=== PATIENT | female | born 1955 | race Caucasian/White ===

== ENCOUNTER 2016-07-30 15:16 | Inpatient (IN) | payer OTHER ==
[~2016-07-30] VITALS: Ht 149.9 cm; Wt 63.6 kg
[2016-08-21] MEDS ORDERED: VITA500T4 PO (11:12)
[2016-08-21] MEDS ORDERED: SIMV10TA PO (11:12)
[2016-08-21] MEDS ORDERED: PANT40TA3 PO (11:12)
[2016-08-21] MEDS ORDERED: CILO100T PO (11:12)
[2016-08-21] MEDS ORDERED: FERR1TAB58 PO (11:12)
[2016-08-21] MEDS ORDERED: GINK120T2 PO (11:12)
[2016-08-21] MEDS ORDERED: LOSA25TA PO (11:12)
[2016-08-21] MEDS ORDERED: AMLO10TA2 PO (11:12)
[2016-08-26] VITALS (9 sets, daily range): BP systolic 118–152; BP diastolic 59–72; PULSE 68–85; RESP 18–20; TEMP 97.4–98; O2SAT 95–100
[2016-08-26] MEDS ORDERED: INSULIN HUMAN REGULAR 1,000 UNITS/10 ML VIAL SQ PRN (09:15)
[2016-08-26] MEDS ORDERED: SODIUM CHLORID 0.9% 500 ML IV SCH (09:15)
[2016-08-26] MEDS ORDERED: LACTATED RINGER'S 1000 ML IV SCH (09:15)
[2016-08-26] MEDS ORDERED: METOPROLOL TARTRATE 25 MG TAB PO PRN (09:15)
[2016-08-26] MEDS ORDERED: ceFAZolin 2 GM PREMIX 50 ML ONE (09:49)
[2016-08-26] MEDS ORDERED: HEPARIN SODIUM - SQ 10,000 UNITS/ML VIAL ONE (09:49)
[2016-08-26] MEDS ORDERED: HEPARIN SODIUM - IV 10,000 UNITS/10 ML VIAL ONE (09:49)
[2016-08-26] MEDS ORDERED: PROTAMINE SULFATE 50 MG/5 ML VIAL ONE (09:49)
[2016-08-26] MEDS ORDERED: BUPIVACAINE/EPINEPHRINE 0.5% 50 ML VIAL ONE (10:08)
[2016-08-26] MEDS ORDERED: MIDAZOLAM HCL 2 MG/2 ML VIAL ONE (10:15)
[2016-08-26] MEDS ORDERED: FAMOTIDINE 20 MG/2 ML VIAL ONE (10:15)
--- NOTE | 2016-08-26 10:22 | HHI.HP ---
History of Present Illness Chief Complaint: B LE leg pain History of Present Illness 61 yo lady with PAD and B LE leg pain, worsening, no motor dysfunction, no tissue loss Past/Family/Social History Past Medical History HTN, PAD, CAD - cleared by cardiology Social History still smoking and I have discussed with her Home Medications Reported Medications Ferrous Sulfate (Iron)50 Mg Tab65 Mg PO DAILY Ref 0 08/21/16 Cyanocobalamin (Vitamin B-12)500 Mcg [id number] Mcg PO DAILY #1 BOTTLE Ref 0 08/21/16 Amlodipine 10 Mg Tab10 Mg PO DAILY #30 TAB Ref 0 08/21/16 Simvastatin 10 Mg Tab10 Mg PO DAILY #30 TAB Ref 0 08/21/16 Losartan 25 Mg Tab12.5 Mg PO DAILY #15 TAB Ref 0 08/21/16 Cilostazol 100 Mg Biw881 Mg PO BID Ref 0 08/21/16 Discontinued Reported Medications Ginkgo Biloba 120 Mg Pus914 Mg PO DAILY 08/21/16 Pantoprazole 40 Mg Tab40 Mg PO DAILY #30 TAB Ref 0 08/21/16 Coded Allergies: No Known Allergies (Unverified , 08/21/16) Review of Systems Constitutional: COMPLAINS OF: Diaphoretic episodes, DENIES: Fever, Weight gain , Chills, Night Sweats Cardiovascular: DENIES: Chest pain, Palpitations, Syncope, Dyspnea on Exertion , PND, Lower Extremity Edema, Orthopnea, Claudication Physical Exam Vitals/I&O Date Time Temp Pulse Resp B/P Pulse Ox O2 Delivery O2 Flow Rate FiO2 08/26/16 09:20 98.0 85 20 152/70 100 Neuro: alert and oriented, anxious appropriately Neck: no JVD Heart: reg rate Lungs: nonlabored breathing Vascular: diminished femoral pulses, no palpable pedal pulses Laboratory Tests Test 08/26/16 08/26/16 09:20 09:22 Blood Type O NEGATIVE O NEGATIVE Antibody Screen NEGATIVE Crossmatch Leukocyte-Reduced Red Blood Cells Blood Bank Comment CTA shows AIOD Assessment and Plan Plan 1. B CFE TEA w/ patch and iliac stents 2. To OR. Discussed risks and benefits with patient and family. Bernardo Avila MD Aug 26, 2016 10:22
[2016-08-26] MEDS ORDERED: IOHEXOL 350 MG/ML 100 ML BTL (for RAD DIAG) OTHER ONE (11:35)
[2016-08-26] MEDS ORDERED: ePHEDrine/NS 50 MG/5 ML SYR IV ONE (12:00)
[2016-08-26] MEDS ORDERED: ONDANSETRON HCL 4 MG/2 ML VIAL IV PUSH ONE (12:00)
[2016-08-26] MEDS ORDERED: PHENYLEPH/NS 1000 MCG/10 ML SYR IV ONE (12:00)
[2016-08-26] MEDS ORDERED: NEOSTIGMINE 3 MG/3 ML SYR IV ONE (12:00)
[2016-08-26] MEDS ORDERED: PROPOFOL 200 MG/20 ML AMP IV ONE (12:00)
[2016-08-26] MEDS ORDERED: NORMOSOL R INJ 1,000 ML IV ONE (12:00)
--- NOTE | 2016-08-26 13:56 | HHI.PR ---
Immediate Post Op Note Procedure Date: Aug 26, 2016 Pre Op Diagnosis: PAD, B LE rest pain Post Op Diagnosis: PAD, B LE rest pain Surgeon: Bernardo Avila Enterprise Sales Person(s): Candace Judge Procedure: 1. B PATHOLOGY SECRETARY TEA with patch angioplasty 2. Aortogram 3. B RADHA stent (8x59 iCAST RIGHT, 9x59 iCAST LEFT) 4. B EIA stent (6x80 Complete RIGHT, 8x80 Complete LEFT) Findings: severe AIOD palpable femoral pulses post-procedure Additional Information: UOP: 275 mL Complications: none apparent Specimen(s) removed: none Estimated blood loss: 200 mL Anesthesia: General Drains: None Fluids: 1500 mL x'oid; 2U PRBC Patient to: PACU Patient Condition: Good Implant/Devices: SEE IMPLANT LOG (if applicable) Date/Time of Procedure: SEE SURGICAL CARE RECORD Bernardo Avila MD Aug 26, 2016 13:55
[2016-08-26] MEDS ORDERED: Post-op Orders (for Pharmacy) MISC OTHER ONE (14:00)
[2016-08-26] MEDS ORDERED: DEXTROSE 50% IN WATER 50 ML VIAL(D50) IV PUSH PRN (14:00)
[2016-08-26] MEDS ORDERED: ACETAMINOPHEN 325 MG TAB PO PRN (14:00)
[2016-08-26] MEDS ORDERED: GLUCAGON 1 MG/ML VIAL OTHER PRN (14:00)
[2016-08-26] MEDS ORDERED: MORPHINE SULFATE 4 MG/ML INJ IV PUSH PRN (14:00)
[2016-08-26] MEDS ORDERED: DO NOT ADM ANY ANTICOAGULANT DRUGS XX PRN (14:25)
[2016-08-26] MEDS ORDERED: fentaNYL CITRATE 250 MCG/5 ML AMP ONE (14:39)
[2016-08-26] MEDS: SODIUM CHLOR 0.9% 1000 ML INJ 1,000 ML IV SCH ×2 (15:10→23:56)
[2016-08-26 15:11] LABS: HEMATOCRIT 32.2 % (35.0-46.0); MEAN CELL VOLUME 89.1 FL (80.0-100.0); MEAN CORPUSCULAR HEMOGLOBIN 29.2 PG (27.0-34.0); MEAN CORPUSCULAR HGB CONC 32.8 % (32.0-36.0); PLATELET COUNT 221 TH/MM3 (150-450); RED BLOOD COUNT 3.62 MIL/MM3 (4.00-5.30); REVIEW FLAG FINAL; WHITE BLOOD COUNT 10.3 TH/MM3 (4.0-11.0)
[2016-08-26] MEDS: HEPARIN-D5W INJ 250 ML IV SCH (15:11)
[2016-08-26 15:34] LABS: APTT (PATIENT) 71.8 SEC (24.3-30.1); PROTHROMBIN TIME - PATIENT 11.1 SEC (9.8-11.6)
[2016-08-26] MEDS: INSULIN NovoLIN REGULAR SUPPLEMENTAL SCALE SQ SCH (18:00)
[2016-08-26] MEDS: oxyCODONE/ACETAMINOPHEN 5 MG/325 MG TAB PO PRN (18:20)
[2016-08-26] MEDS: PANTOPRAZOLE SOD 40 MG DELAYED RELEASE TAB PO SCH (20:41)
[2016-08-26 23:32] LABS: APTT (PATIENT) 47.4 SEC (24.3-30.1)
[2016-08-27] VITALS (26 sets, daily range): BP systolic 108–140; BP diastolic 60–78; PULSE 60–88; RESP 17–20; TEMP 98.1–98.4; O2SAT 92–98
[2016-08-27] MEDS: INSULIN NovoLIN REGULAR SUPPLEMENTAL SCALE SQ SCH ×5 (00:14→23:55)
[2016-08-27] MEDS: oxyCODONE/ACETAMINOPHEN 5 MG/325 MG TAB PO PRN ×2 (03:19→11:54)
[2016-08-27 06:09] LABS: APTT (PATIENT) 46.1 SEC (24.3-30.1)
[2016-08-27 06:32] LABS: ALKALINE PHOSPHATASE 62 U/L (45-117); ALT (GPT) 16 U/L (10-53); ANION GAP 7 MEQ/L (5-15); AST (GOT) 11 U/L (15-37); BICARBONATE 27.9 MEQ/L (21.0-32.0); BLOOD UREA NITROGEN 10 MG/DL (7-18); CHLORIDE 106 MEQ/L (98-107); GLOMERULAR FILTRATION RATE 141 ML/MIN (>89); POTASSIUM 3.6 MEQ/L (3.5-5.1); SODIUM (NA) 141 MEQ/L (136-145); TOTAL BILIRUBIN ADULT 0.4 MG/DL (0.2-1.0)
[2016-08-27] MEDS: ASPIRIN EC 325 MG TABEC PO SCH (09:05)
--- NOTE | 2016-08-27 10:07 | PD.VS.PN ---
Subjective POD #: 1 Procedure(s): B IT SOFTWARE DEVELOPER TEA with patch angioplasty Subjective/Hospital Course Pt sitting comfortably upright on st finishing up breakfast states she feels so much better this am. Pt alert and oriented times 3 with no acute distress, wound vac intact and in place. Objective Vitals/I&O Date Time Temp Pulse Resp B/P Pulse Ox O2 Delivery O2 Flow Rate FiO2 08/27/16 09:07 77 08/27/16 08:02 60 08/27/16 07:49 95 Nasal Cannula 2.00 08/27/16 07:30 65 08/27/16 07:30 98 Nasal Cannula 1.00 08/27/16 07:30 98.3 69 18 114/65 98 08/27/16 06:23 60 08/27/16 05:09 65 08/27/16 04:00 60 08/27/16 03:00 67 08/27/16 03:00 95 1.50 08/27/16 03:00 98.2 80 18 116/65 96 08/27/16 02:00 71 08/27/16 01:54 69 08/27/16 00:00 69 08/26/16 23:00 95 Nasal Cannula 2.00 08/26/16 23:00 78 08/26/16 23:00 97.9 78 18 118/68 99 08/26/16 22:12 71 08/26/16 21:12 70 08/26/16 21:06 95 Nasal Cannula 2.00 08/26/16 20:00 69 08/26/16 19:30 68 08/26/16 19:30 97.9 78 20 118/59 99 08/26/16 19:00 96 Nasal Cannula 3.00 08/26/16 18:44 78 08/26/16 16:30 97.4 75 20 129/72 95 08/26/16 16:30 71 08/26/16 16:00 70 17 126/65 97 Nasal Cannula 2 08/26/16 15:30 73 18 120/66 95 Nasal Cannula 2 08/26/16 15:15 74 20 120/66 95 Nasal Cannula 2 08/26/16 15:00 79 19 123/71 98 Nasal Cannula 2 08/26/16 14:45 82 16 119/71 95 Nasal Cannula 2 08/26/16 14:30 89 12 109/66 97 Nasal Cannula 2 08/26/16 14:23 97.6 92 15 114/74 98 Nasal Cannula 2 Exam: GENERAL: SKIN: Warm and dry. HEAD: Normocephalic. NECK: Supple, trachea midline. No JVD or lymphadenopathy. RESPIRATORY: No accessory muscle use. MUSCULOSKELETAL: No cyanosis, or edema. Pulses: Pt presents with strong pedal pulses via doppler, skin intact with no swelling or pain Incisions: Wound vac intact to groin region Laboratory Laboratory Tests Test 08/26/16 08/26/16 08/26/16 08/27/16 11:46 14:45 22:35 05:45 Crossmatch Leukocyte-Reduced Red Blood Cells Blood Bank Comment White Blood Count 10.3 Red Blood Count 3.62 Hemoglobin 10.6 Hematocrit 32.2 Mean Corpuscular Volume 89.1 Mean Corpuscular Hemoglobin 29.2 Mean Corpuscular Hemoglobin 32.8 Concent Red Cell Distribution Width 16.0 Platelet Count 221 Mean Platelet Volume 9.9 Prothrombin Time 11.1 Prothromb Time International 1.0 Ratio Activated Partial 71.8 47.4 46.1 Thromboplast Time Sodium Level 141 Potassium Level 3.6 Chloride Level 106 Carbon Dioxide Level 27.9 Anion Gap 7 Blood Urea Nitrogen 10 Creatinine 0.45 Estimat Glomerular Filtration 141 Rate Random Glucose 102 Calcium Level 7.9 Total Bilirubin 0.4 Aspartate Amino Transf 11 (AST/SGOT) Alanine Aminotransferase 16 (ALT/SGPT) Alkaline Phosphatase 62 Total Protein 5.6 Albumin 2.5 Assessment and Plan Plan 1. B CFE TEA w/ patch and iliac stents 2. Consult to PT/Hematology/case management 3. D/C dhaliwal cath today 4. Continue Heparin drip 5. Start Wellbutrin for smoking cessation Lizett Joshua Aug 27, 2016 10:07
[2016-08-27] MEDS ORDERED: PILL SPLITTER OTHER PRN (10:15)
[2016-08-27] MEDS: HEPARIN-D5W INJ 250 ML IV SCH (11:11)
--- NOTE | 2016-08-27 11:41 | MP ---
cc: ANUSHA AVILA MD DATE OF SURGERY 08/26/2016 PREOPERATIVE DIAGNOSIS Peripheral arterial occlusive disease, bilateral lower extremity rest pain. POSTOPERATIVE DIAGNOSIS Peripheral arterial occlusive disease, bilateral lower extremity rest pain. PROCEDURE 1. Bilateral common femoral artery endarterectomy 2. Aortogram 3. Right common iliac artery stent with iCAST 8 x 59 4. Right external iliac artery stent with a complete 8 x 60 5. Left common iliac artery stent with 9 x 59 iCAST 6. Left external iliac artery stent with 8 x 80 complete ATTENDING SURGEON Anusha Avila MD ANESTHESIA General INDICATIONS Ms. García is a 61-year-old lady with peripheral arterial occlusive disease manifesting as rest pain bilaterally. Preoperative CT scan suggests she has severe aortic iliac occlusive disease and is being taken to the operating room to undergo reconstruction and iliac stenting. DESCRIPTION OF PROCEDURE Informed consent was obtained from the patient. She was taken to the operating room and placed supine on the operating room table. An appropriate time out was taken to ensure the patient's identify, operative site and planned procedure. The administration of a gram of Kefzol was initiated prior to the skin incision and will be discontinued after a single preoperative dose. Everyone in the room agreed with the time out and we proceeded. The patient was prepped from her nipples to her toes. Vertical incisions were made in both groins, carried down through the subcutaneous tissue with electrocautery. The common femoral artery was identified and dissected free from the external iliac artery to the femoral bifurcation. The patient was systemically heparinized through the remainder of the case. The ACT was kept greater than 250. Proximal and distal control of each common femoral artery was obtained with Profunda clamps and the distal control was obtained with profunda clamps. A longitudinal arteriotomy was made with an 11 blade and extended with Detrich scissors. The arteries were endarterectomized without difficulty. A nice end point was obtained both proximally and distally in both arteries. Bovine pericardial patches were then sewn on these using running 5-0 Prolene sutures. At the completion of such, she became hemostatic. The clamps were released, both patches were accessed. The micropuncture needles were exchanged using Seldinger technique for a micropuncture sheath through which 0.035 Glidewire was introduced. The micropuncture sheath was exchanged for a 5 Grenadian sheath and then a 7 x 25 Grenadian sheath. An aortogram was obtained. This showed severe aortic iliac occlusive disease. It was, in fact, sheath occlusive bilaterally. Kissing iliac stents were performed with 9 x 59 on the left and 8 x 59 on the right. Atrium iCAST stents were deployed without difficulty. The completion angiogram on the left showed residual external iliac artery occlusive disease and this was treated with an 8 x 80 self-expanding stent and it was post-dilating to 7 mm. Completion angiogram showed an excellent result. The wire, catheter and sheath were removed. The patchotomy was closed with interrupted 6-0 Prolene sutures and hemostasis achieved. There was a nice pulse in the groin. On the right hand side, an 8 x 60 stent was then placed and this was done to avoid hypogastric artery jailing. The completion angiogram showed an excellent result without any recoil extravasation. The wire, catheter and sheath were removed. The patchotomy was closed with interrupted 6-0 Prolene suture. There were pulses in both groins. The wounds were made hemostasis, irrigated and closed with 2-0 Polysorb, 3-0 Polysorb and 4-0 Monocryl. A skin Vac was then applied to both wounds. There were no complications. I was present and scrubbed for the entire procedure. MD KOURTNEY Mcintyre/SHANTE /8:06 AM /11:11 AM CARINA
[2016-08-27] MEDS: buPROPion HCL 150 MG SUSTAINED RELEASE TAB PO SCH (11:53)
[2016-08-27 11:55] LABS: AUTOMATED NEUTROPHIL # 11.4 TH/MM3 (1.8-7.7); BASOPHIL # 0.1 TH/MM3 (0-0.2); BASOPHIL % 0.4 % (0.0-2.0); EOSINOPHIL % 0.1 % (0.0-4.0); HEMATOCRIT 31.8 % (35.0-46.0); HEMO FLAGS DIFF FINAL; LYMPH % 11.4 % (9.0-44.0); LYMPHOCYTE # 1.6 TH/MM3 (1.0-4.8); MEAN CELL VOLUME 89.3 FL (80.0-100.0); MEAN CORPUSCULAR HEMOGLOBIN 28.2 PG (27.0-34.0); MEAN CORPUSCULAR HGB CONC 31.5 % (32.0-36.0); MONO % 7.1 % (0.0-8.0); PLATELET COUNT 206 TH/MM3 (150-450); RED BLOOD COUNT 3.57 MIL/MM3 (4.00-5.30); RED CELL DISTRIBUTION WIDTH 16.5 % (11.6-17.2); WHITE BLOOD COUNT 14.1 TH/MM3 (4.0-11.0)
[2016-08-27 12:27] LABS: BICARBONATE 28.8 MEQ/L (21.0-32.0); POTASSIUM 3.2 MEQ/L (3.5-5.1)
[2016-08-27] MEDS: DOCUSATE SODIUM 100 MG CAP PO SCH (20:26)
[2016-08-27] MEDS: PANTOPRAZOLE SOD 40 MG DELAYED RELEASE TAB PO SCH (20:26)
[2016-08-27] MEDS ORDERED: CILOSTAZOL 100 MG TAB PO SCH (21:00)
[2016-08-27] MEDS: oxyCODONE/ACETAMINOPHEN 10 MG/325 MG TAB PO PRN (22:16)
--- NOTE | 2016-08-27 22:29 | MB ---
cc: JOSE DELEON DATE OF CONSULTATION 08/27/16 DATE OF 1955 REASON FOR CONSULTATION Patient with history of severe peripheral arterial disease who has undergone placement of iliac stents. CHIEF COMPLAINT Lower extremity pain. HISTORY OF PRESENT ILLNESS This is a 60-year-old female who was admitted to the hospital for vascular procedure and had iliac stents placed. She has severe peripheral arterial disease and had bilateral lower extremity pain which was worsening. Her other medical problems include history of GI bleeding requiring multiple blood transfusions over the past several months, history of hypertension. She is also a chronic smoker. She lives in [place]. She says that she was evaluated by a ticker installer in June and had a colonoscopy which did not reveal a source of bleeding. She was supposed to follow up with GI for further evaluation since she has heme-positive stools and has required several units of packed red blood cells over the past 3-4 months. I have been consulted to evaluate this patient for anticoagulation in the setting of severe peripheral arterial disease and occlusion. REVIEW OF SYSTEMS A comprehensive 14-point review of systems was completed which is negative except as described in the HPI. PAST MEDICAL HISTORY 1. Hypertension 2. Coronary artery disease SOCIAL HISTORY Smoker. Lives with her family. No illicit drug use. FAMILY HISTORY Reviewed and it is noncontributory to this admission. MEDICATIONS Home medications 1. Iron sulfate 50 mg 1 tablet p.o. daily 2. Cyanocobalamin 500 mg one tablet p.o. daily, 3. Amlodipine 10 mg one tablet p.o. daily, 4. Simvastatin 10 mg one tablet p.o. daily, 5. Losartan 25 mg 12.5 mg one tablet p.o. daily, 6. Cilostazol 100 mg one tablet p.o. b.i.d. ALLERGIES She does not have any known drug allergies. PHYSICAL EXAMINATION VITAL SIGNS: Blood pressure is 128/67, pulse is in the 60s, temperature is 98.4, O2 sats are 95% on room air. GENERAL: Well-developed, well-nourished female, elderly female sitting up in the chair no apparent distress. HEENT: Pupils are equal, round, reactive to light. EOMI. No oral thrush. No oral lesions. NECK: Supple, no JVD, no bruits. No lymphadenopathy. CHEST: Clear to auscultation bilaterally. CARDIAC: S1-S2 regular rate and rhythm. ABDOMEN: Soft, nontender, nondistended. Bowel sounds are present. EXTREMITIES: Without any edema, erythema or cyanosis. Prominent veins in the lower extremities, pulses are 2+. NEUROLOGIC: No focal deficits. PSYCHIATRIC: Mood and affect is appropriate. LYMPH NODE EXAM: No lymphadenopathy on exam. LABORATORY DATA WBC is 14.1, hemoglobin is 10, MCV is 89.3, platelet count is 206. Serum chemistries show sodium of 142, potassium 3.2, CO2 28.8, BUN nine, creatinine 0.46, GFR is 137, glucose is 91, calcium is 8.2. Coags show an INR of 1.0. She is currently on heparin and PTT is 46.1. IMAGING STUDIES No imaging available in the system. ASSESSMENT/PLAN This is a 61-year-old female with a past medical history of severe peripheral arterial disease with occlusion who was admitted to the hospital and underwent vascular surgery with stent placement. 1. Severe peripheral arterial disease. I have been consulted to evaluate this patient for long-term anticoagulation. She is currently on heparin. After a long discussion with the patient, it appears that she has been having GI bleed. She has had Hemoccult positive stools in the past and was seen by gastroenterology. No definitive source of bleeding was identified and further GI workup was planned. She has required recent blood transfusions. At this time, I would not recommend long-term anticoagulation unless we have properly evaluated this patient for GI bleeding. I would recommend continuing heparin for now. We should obtain a stool Hemoccult test. We should obtain a GI consult for further evaluation. 2. Anemia. As stated above. Secondary to a history of GI bleeding and also postop anemia, obtain anemia studies, stool Hemoccult as stated above and GI evaluation. Thank you for allowing me to participate in the care of this patient. I will continue to follow this patient along. MD SOCORRO Gregory/ /9:24 PM /10:14 PM [facility]
[2016-08-28] VITALS (25 sets, daily range): BP systolic 116–140; BP diastolic 66–79; PULSE 61–88; RESP 16–19; TEMP 98–98.8; O2SAT 91–94
[2016-08-28] MEDS: oxyCODONE/ACETAMINOPHEN 10 MG/325 MG TAB PO PRN ×4 (02:27→20:55)
[2016-08-28] MEDS: INSULIN NovoLIN REGULAR SUPPLEMENTAL SCALE SQ SCH ×3 (06:00→18:00)
[2016-08-28 06:14] LABS: AUTOMATED NEUTROPHIL # 9.1 TH/MM3 (1.8-7.7); BASOPHIL % 0.3 % (0.0-2.0); EOSINOPHIL # 0.1 TH/MM3 (0-0.4); EOSINOPHIL % 0.7 % (0.0-4.0); HEMATOCRIT 30.6 % (35.0-46.0); HEMO FLAGS DIFF FINAL; LYMPH % 12.4 % (9.0-44.0); LYMPHOCYTE # 1.4 TH/MM3 (1.0-4.8); MEAN CELL VOLUME 90.1 FL (80.0-100.0); MEAN CORPUSCULAR HEMOGLOBIN 29.5 PG (27.0-34.0); MEAN CORPUSCULAR HGB CONC 32.8 % (32.0-36.0); MONO % 6.9 % (0.0-8.0); NEUT % 79.7 % (16.0-70.0); PLATELET COUNT 204 TH/MM3 (150-450); RED BLOOD COUNT 3.39 MIL/MM3 (4.00-5.30); RED CELL DISTRIBUTION WIDTH 16.2 % (11.6-17.2); WHITE BLOOD COUNT 11.5 TH/MM3 (4.0-11.0)
[2016-08-28 06:39] LABS: APTT (PATIENT) 38.5 SEC (24.3-30.1)
[2016-08-28 06:46] LABS: FERRITIN 32 NG/ML (8-252); LDH SERUM 142 U/L (84-246); TRANSFERRIN IRON PROFILE 212 MG/DL (200-360)
--- NOTE | 2016-08-28 09:01 | PD.VS.PN ---
Subjective Subjective/Hospital Course Patient without complaints. Margie PO and urinating. Walking with PT. Objective Vitals/I&O Date Time Temp Pulse Resp B/P Pulse Ox O2 Delivery O2 Flow Rate FiO2 08/28/16 08:00 82 08/28/16 07:15 91 Room Air 08/28/16 07:15 80 08/28/16 07:15 98.6 81 16 121/67 91 08/28/16 06:00 61 08/28/16 05:00 69 08/28/16 04:00 83 08/28/16 03:00 75 08/28/16 03:00 98.0 88 19 140/79 92 08/28/16 02:00 75 08/28/16 01:00 68 08/28/16 00:00 70 08/27/16 23:00 79 08/27/16 23:00 98.3 88 18 126/77 92 08/27/16 22:00 84 08/27/16 21:00 82 08/27/16 20:15 95 08/27/16 20:00 80 08/27/16 19:00 75 08/27/16 19:00 98.1 86 17 140/78 96 08/27/16 19:00 96 Room Air 08/27/16 18:25 74 08/27/16 17:32 78 08/27/16 16:36 76 08/27/16 15:45 74 08/27/16 15:45 98.4 64 20 128/67 97 08/27/16 14:21 68 08/27/16 13:17 18 08/27/16 13:13 63 08/27/16 12:25 69 08/27/16 11:56 98.4 68 20 108/60 95 08/27/16 11:00 78 08/27/16 09:07 77 08/28/16 08/28/16 08/28/16 07:00 15:00 23:00 Intake Total 847 ml Balance 847 ml Physical Exam Warm lower extremities with strong doppler signals. Provena vacs in place. Laboratory Laboratory Tests Test 08/27/16 08/28/16 11:42 04:54 White Blood Count 14.1 11.5 Red Blood Count 3.57 3.39 Hemoglobin 10.0 10.0 Hematocrit 31.8 30.6 Mean Corpuscular Volume 89.3 90.1 Mean Corpuscular Hemoglobin 28.2 29.5 Mean Corpuscular Hemoglobin 31.5 32.8 Concent Red Cell Distribution Width 16.5 16.2 Platelet Count 206 204 Mean Platelet Volume 9.7 10.7 Neutrophils (%) (Auto) 81.0 79.7 Lymphocytes (%) (Auto) 11.4 12.4 Monocytes (%) (Auto) 7.1 6.9 Eosinophils (%) (Auto) 0.1 0.7 Basophils (%) (Auto) 0.4 0.3 Neutrophils # (Auto) 11.4 9.1 Lymphocytes # (Auto) 1.6 1.4 Monocytes # (Auto) 1.0 0.8 Eosinophils # (Auto) 0.0 0.1 Basophils # (Auto) 0.1 0.0 CBC Comment DIFF FINAL DIFF FINAL Differential Comment Sodium Level 142 Potassium Level 3.2 Chloride Level 105 Carbon Dioxide Level 28.8 Anion Gap 8 Blood Urea Nitrogen 9 Creatinine 0.46 Estimat Glomerular Filtration 137 Rate Random Glucose 91 Calcium Level 8.2 Haptoglobin 138 Activated Partial 38.5 Thromboplast Time Iron Level 7 Total Iron Binding Capacity 297 Percent Iron Saturation 2.4 Ferritin 32 Lactate Dehydrogenase 142 Assessment and Plan Plan 1. B CFE TEA w/ patch and iliac stents 2. Continue PT and pain mgmt. 3. Still on Heparin drip. 4. Hematology consult for anticoagulation. Rupesh Johnson DO Aug 28, 2016 09:00
[2016-08-28] MEDS ORDERED: DO NOT ADM ANY ANTICOAGULANT DRUGS XX PRN (09:15)
[2016-08-28] MEDS: buPROPion HCL 150 MG SUSTAINED RELEASE TAB PO SCH (09:57)
[2016-08-28] MEDS: CYANOCOBALAMIN 1,000 MCG TAB PO SCH (09:57)
[2016-08-28] MEDS: LOSARTAN 25 MG TAB PO SCH (09:58)
[2016-08-28] MEDS: PRAVASTATIN SOD 20 MG TAB PO SCH (09:58)
[2016-08-28] MEDS: FERROUS SULFATE 325 MG (65 MG ELEMENTAL IRON) TAB PO SCH (09:58)
[2016-08-28] MEDS: DOCUSATE SODIUM 100 MG CAP PO SCH ×2 (09:58→20:53)
[2016-08-28] MEDS: ASPIRIN EC 325 MG TABEC PO SCH (09:58)
[2016-08-28 11:20] LABS: PROTHROMBIN TIME - PATIENT 10.9 SEC (9.8-11.6)
[2016-08-28] MEDS: HEPARIN-D5W INJ 250 ML IV SCH (11:59)
--- NOTE | 2016-08-28 12:08 | PD.CONS ---
HPI History of Present Illness This is a 61 year old female patient with severe peripheral arterial disease, who recently underwent bilateral common femoral artery endarterectomy, aortogram , right common iliac artery stent, right external iliac artery stent, left common iliac artery stent, left external iliac arterial stent on (08/27/16) with Dr. Avila. Postoperatively, she was started on a heparin gtt, aspirin, and coumadin. Hematology was consulted for evaluation for penitentiary anticoagulation. GI was consulted for a history of GI Bleeding/hemoccult positive stool in a patient that will need penitentiary anticoagulation. Her H/H has remained stable during this hospitalization and is currently 10.0/30.6. Iron indices revealed iron 7, TIBC 297, iron saturation 2.4, ferritin 32. The patient reports that she was hospitalized at [facility] about 3 weeks ago and found to have anemia with Hemoccult-positive stool. She reports that she underwent evaluation with EGD and colonoscopy at that time. She reports that this was normal other than 2 polyps which were "burned." She denies any hx of PUD. She denies any obvious visible blood loss. She denies any decreased appetite, heartburn, reflux, nausea, vomiting, abdominal pain, bowel changes, black stools, or red blood in her stool. (Amy Bush) PFSH Past Medical History Anemia Recent hemoccult positive stool Colon polyps Severe peripheral arterial disease Past Surgical History EGD/Colonoscopy Bilateral common femoral artery endarterectomy, aortogram, right common iliac artery stent, right external iliac artery stent, left common iliac artery stent, left external iliac arterial stent on (08/27/16) with Dr. Avila. (Amy Bush) Coded Allergies: No Known Allergies (Unverified , 08/21/16) Medications Allergies Coded Allergies Type Severity Reaction Last Updated Verified No Known Allergies 08/21/16 No Active Scripts Medications Dose Route/Sig Days Date Category Iron (Ferrous Sulfate) 50 Mg Tab 65 Mg PO DAILY 08/21/16 Reported Vitamin B-12 (Cyanocobalamin) 500 Mcg Tab 500 Mcg PO DAILY 08/21/16 Reported Amlodipine (Amlodipine Besylate) 10 Mg Tab 10 Mg PO DAILY 08/21/16 Reported Simvastatin 10 Mg Tab 10 Mg PO DAILY 08/21/16 Reported Losartan (Losartan Potassium) 25 Mg Tab 12.5 Mg PO DAILY 08/21/16 Reported Cilostazol 100 Mg Tab 100 Mg PO BID 08/21/16 Reported Family History Brother with cardiac disease Sister had surgery for benign gastric tumor No family hx of esophageal, gastric, or colorectal cancer. Social History Smokes 2-3 cigarettes per day No ETOH. (Amy Bush) Review of Systems Constitutional: COMPLAINS OF: Fatigue, DENIES: Weight loss, Change in appetite Respiratory: DENIES: Cough, Shortness of breath Cardiovascular: COMPLAINS OF: Claudication, DENIES: Chest pain Gastrointestinal: DENIES: Abdominal pain, Black stools, Bloody stools, Constipation, Diarrhea, Nausea, Vomiting, Anorexia, Swelling of Abdomen, Heartburn, Hematemesis Musculoskeletal: DENIES: Joint pain, Muscle aches Integumentary: DENIES: Abnormal pigmentation Neurologic: DENIES: Headache Psychiatric: DENIES: Confusion (Amy Bush) GI Exam Vitals I&O Vital Signs Date Time Temp Pulse Resp B/P Pulse Ox O2 Delivery O2 Flow Rate FiO2 08/28/16 11:00 69 08/28/16 10:00 77 08/28/16 09:00 92 21 08/28/16 09:00 69 08/28/16 08:00 82 08/28/16 07:15 91 Room Air 08/28/16 07:15 80 08/28/16 07:15 98.6 81 16 121/67 91 08/28/16 06:00 61 08/28/16 05:00 69 08/28/16 04:00 83 08/28/16 03:00 75 08/28/16 03:00 98.0 88 19 140/79 92 08/28/16 02:00 75 08/28/16 01:00 68 08/28/16 00:00 70 08/27/16 23:00 79 08/27/16 23:00 98.3 88 18 126/77 92 08/27/16 22:00 84 08/27/16 21:00 82 08/27/16 20:15 95 08/27/16 20:00 80 08/27/16 19:00 75 08/27/16 19:00 98.1 86 17 140/78 96 08/27/16 19:00 96 Room Air 08/27/16 18:25 74 08/27/16 17:32 78 08/27/16 16:36 76 08/27/16 15:45 74 08/27/16 15:45 98.4 64 20 128/67 97 08/27/16 14:21 68 08/27/16 13:17 18 08/27/16 13:13 63 08/27/16 12:25 69 08/27/16 11:56 98.4 68 20 108/60 95 I/O 08/27/16 08/27/16 08/27/16 08/28/16 08/28/16 08/28/16 07:00 15:00 23:00 07:00 15:00 23:00 Intake Total 1862 ml 840 ml 847 ml Output Total 800 ml 450 ml Balance 1062 ml 390 ml 847 ml Intake Oral 300 ml 840 ml 420 ml IV Total 1562 ml 427 ml Output Urine Total 800 ml 450 ml # Voids 3 2 # Bowel Movements 0 0 Laboratory Test 08/28/16 08/28/16 04:54 10:51 White Blood Count 11.5 TH/MM3 Red Blood Count 3.39 MIL/MM3 Hemoglobin 10.0 GM/DL Hematocrit 30.6 % Mean Corpuscular Volume 90.1 FL Mean Corpuscular Hemoglobin 29.5 PG Mean Corpuscular Hemoglobin 32.8 % Concent Red Cell Distribution Width 16.2 % Platelet Count 204 TH/MM3 Mean Platelet Volume 10.7 FL Neutrophils (%) (Auto) 79.7 % Lymphocytes (%) (Auto) 12.4 % Monocytes (%) (Auto) 6.9 % Eosinophils (%) (Auto) 0.7 % Basophils (%) (Auto) 0.3 % Neutrophils # (Auto) 9.1 TH/MM3 Lymphocytes # (Auto) 1.4 TH/MM3 Monocytes # (Auto) 0.8 TH/MM3 Eosinophils # (Auto) 0.1 TH/MM3 Basophils # (Auto) 0.0 TH/MM3 CBC Comment DIFF FINAL Differential Comment Haptoglobin 138 MG/DL Activated Partial 38.5 SEC Thromboplast Time Iron Level 7 MCG/DL Total Iron Binding Capacity 297 MCG/DL Percent Iron Saturation 2.4 % Ferritin 32 NG/ML Lactate Dehydrogenase 142 U/L Prothrombin Time 10.9 SEC Prothromb Time International 1.0 RATIO Ratio Physical Examination HEENT: Normocephalic; atraumatic; no jaundice. CHEST: CTA. CARDIAC: RRR. ABDOMEN: Soft, nondistended, nontender; no hepatosplenomegaly; bowel sounds are present in all four quadrants. EXTREMITIES: No clubbing, cyanosis, or edema. SKIN: Normal; no rash; no jaundice. CUSTOMER CARE CONSULTANT: No focal deficits; alert and oriented times three. (Amy Bush REAL ESTATE ASSISTANT) Assessment and Plan Plan ASSESSMENT: - Recent GIB/Hemoccult positive stool in patient who will require penitentiary anticoagulation. Pt with severe PAD and is s/p bilateral common femoral artery endarterectomy, aortogram, right common iliac artery stent, right external iliac artery stent, left common iliac artery stent, left external iliac arterial stent on (08/27/16) with Dr. Avila. Postoperatively, she was started on a heparin gtt, aspirin, and coumadin. 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 GI was consulted for a history of GI Bleeding/hemoccult positive stool in a patient that will need penitentiary anticoagulation. The patient reports that she was hospitalized at [facility] about 3 weeks ago and found to have anemia with Hemoccult-positive stool and subsequently underwent evaluation with EGD/Colonoscopy at that time- reports as normal other than 2 polyps. No GI symptoms or obvious blood loss. HH has remained stable 10.0/30.6. Iron indices revealed iron 7, TIBC 297, iron saturation 2.4, ferritin 32. PPI, Of note she is on B12. Will obtain records. - Anemia. HH has remained stable 10.0/30.6. Iron indices revealed iron 7, TIBC 297, iron saturation 2.4, ferritin 32. PPI, Of note she is on B12. B12 level pending. MCV 90.1. Hematology following Ferrous Sulfate, PPI - Severe PAD, s/p bilateral common femoral artery endarterectomy, aortogram, right common iliac artery stent, right external iliac artery stent, left common iliac artery stent, left external iliac arterial stent on (08/27/16) with Dr. Avila. On heparin, coumadin, asa - Leukocytosis, improved. 11.5. - Hypokalemia per primary. PLAN: - [facility], Cardiac - Obtain records of recent hospitalization and egd/colonoscopy/pathology/imaging /GI notes/progress notes from 3 weeks ago at [facility] - Cont. PPI - Await B12 level - Cont. Ferrous sulfate - Monitor for bleeding - Monitor HH - Supportive care - Further recommendations to follow after records from [facility] reviewed - Pt seen and examined by Dr. Saba and myself and this note is written on his behalf (Amy Bush) Physician Comments Patient seen and examined Agree with above Continue with current supportive care Monitor labs (Yoan Saba MD) Amy Bush Aug 28, 2016 12:08 Yoan Saba MD Aug 28, 2016 21:26
[2016-08-28 15:08] LABS: APTT (PATIENT) 37.9 SEC (24.3-30.1)
[2016-08-28] MEDS ORDERED: WARFARIN SOD 5 MG TAB PO ONE (16:00)
[2016-08-28] MEDS ORDERED: POTASSIUM CL 40 MEQ/30 ML LIQ UDC PO ONE (18:45)
[2016-08-28] MEDS: PANTOPRAZOLE SOD 40 MG DELAYED RELEASE TAB PO SCH (20:52)
--- NOTE | 2016-08-28 23:34 | PD.ONC.PN ---
Objective Data Date Time Temp Pulse Resp B/P Pulse Ox O2 Delivery O2 Flow Rate FiO2 08/28/16 19:30 94 Room Air 08/28/16 19:30 98.8 80 18 134/77 93 08/28/16 19:30 80 08/28/16 18:00 75 08/28/16 17:51 94 21 08/28/16 17:00 80 08/28/16 16:00 68 08/28/16 15:00 71 08/28/16 15:00 98.6 75 18 134/75 94 08/28/16 14:00 70 08/28/16 13:00 68 08/28/16 12:00 66 08/28/16 11:00 98.4 69 16 116/66 92 08/28/16 11:00 69 08/28/16 10:00 77 08/28/16 09:00 92 21 08/28/16 09:00 69 08/28/16 08:00 82 08/28/16 07:15 91 Room Air 08/28/16 07:15 80 08/28/16 07:15 98.6 81 16 121/67 91 08/28/16 06:00 61 08/28/16 05:00 69 08/28/16 04:00 83 08/28/16 03:00 75 08/28/16 03:00 98.0 88 19 140/79 92 08/28/16 02:00 75 08/28/16 01:00 68 08/28/16 00:00 70 08/28/16 08/28/16 08/28/16 07:00 15:00 23:00 Intake Total 847 ml 836 ml Balance 847 ml 836 ml Result Diagram: 08/28/16 0454 08/27/16 1142 Laboratory Results Laboratory Tests Test 08/28/16 08/28/16 08/28/16 04:54 10:51 14:29 White Blood Count 11.5 TH/MM3 Red Blood Count 3.39 MIL/MM3 Hemoglobin 10.0 GM/DL Hematocrit 30.6 % Mean Corpuscular Volume 90.1 FL Mean Corpuscular Hemoglobin 29.5 PG Mean Corpuscular Hemoglobin 32.8 % Concent Red Cell Distribution Width 16.2 % Platelet Count 204 TH/MM3 Mean Platelet Volume 10.7 FL Neutrophils (%) (Auto) 79.7 % Lymphocytes (%) (Auto) 12.4 % Monocytes (%) (Auto) 6.9 % Eosinophils (%) (Auto) 0.7 % Basophils (%) (Auto) 0.3 % Neutrophils # (Auto) 9.1 TH/MM3 Lymphocytes # (Auto) 1.4 TH/MM3 Monocytes # (Auto) 0.8 TH/MM3 Eosinophils # (Auto) 0.1 TH/MM3 Basophils # (Auto) 0.0 TH/MM3 CBC Comment DIFF FINAL Differential Comment Haptoglobin 138 MG/DL Activated Partial 38.5 SEC 37.9 SEC Thromboplast Time Iron Level 7 MCG/DL Total Iron Binding Capacity 297 MCG/DL Percent Iron Saturation 2.4 % Ferritin 32 NG/ML Lactate Dehydrogenase 142 U/L Vitamin B12 Level 655 PG/ML Prothrombin Time 10.9 SEC Prothromb Time International 1.0 RATIO Ratio Administered Medications Medications (Trade) Dose Ordered Sig/Nathan Route PRN Reason Start Time Stop Time Status Last Admin Dose Admin Pantoprazole Sodium (Protonix) 40 mg HS PO 08/26/16 21:00 08/28/16 20:52 Oxycodone/ Acetaminophen (Percocet 5-325 Mg) 1 tab Q4H PRN PO PAIN SCALE 1 TO 5 08/26/16 14:00 08/27/16 11:54 Oxycodone/ Acetaminophen (Percocet 10-325 Mg) 1 tab Q4H PRN PO PAIN SCALE 6 TO 10 08/26/16 14:00 08/28/16 20:55 Insulin Human Regular (NovoLIN R SUPPLEMENTAL SCALE) 1 Q6HR SQ 08/26/16 18:00 08/27/16 00:14 Bupropion HCl (Wellbutrin Sr) 150 mg DAILY PO 08/27/16 12:00 08/28/16 09:57 Amlodipine Besylate (Norvasc) 10 mg DAILY PO 08/27/16 09:45 08/28/16 09:58 Cyanocobalamin (Vitamin B12) 500 mcg DAILY PO 08/28/16 09:00 08/28/16 09:57 Losartan Potassium (Cozaar) 12.5 mg DAILY PO 08/28/16 09:00 08/28/16 09:58 Ferrous Sulfate (Ferrous Sulfate) 325 mg DAILY PO NS 08/28/16 09:00 08/28/16 09:58 Pravastatin Sodium (Pravachol) 20 mg DAILY PO CM 08/28/16 09:00 08/28/16 09:58 Docusate Sodium (Colace) 100 mg BID PO 08/27/16 21:00 08/28/16 20:53 Objective Remarks GENERAL: nad SKIN: Warm and dry. HEAD: Normocephalic. EYES: No scleral icterus. No injection or drainage. NECK: Supple, trachea midline. No JVD or lymphadenopathy. LYMPHATIC: No adenopathy. CARDIOVASCULAR: Regular rate and rhythm without murmurs. RESPIRATORY: Breath sounds equal bilaterally. No accessory muscle use. GASTROINTESTINAL: Abdomen soft, non-tender, nondistended. EXTREMITIES: No cyanosis, or edema. varicose veins b/l le Assessment/Plan Problem List: (1) Anemia Status: Acute (2) Iron deficiency anemia Status: Acute (3) Peripheral arterial disease Status: Acute (4) Iliac artery stenosis, bilateral Status: Acute (5) Fecal occult blood test positive Status: Acute Assessment 61-year-old female with a past medical history of severe peripheral arterial disease with occlusion who was admitted to the hospital and underwent vascular surgery with stent placement. 1. Severe peripheral arterial disease s/p illiac stents - needs fpc anticoagulation but has history of GI bleeding. FOBT positive with anemia, high risk for fpc AC until we address the source of bleeding. - Continue heparin for now - GI evaluation ongoing 2. Anemia - iron deficient - Iron infusion - B12, folate pending Dale Hassan MD Aug 28, 2016 23:34
[2016-08-29] VITALS (9 sets, daily range): BP systolic 120–148; BP diastolic 67–76; PULSE 67–88; RESP 18; TEMP 97.8–98.7; O2SAT 91–94
[2016-08-29] MEDS: oxyCODONE/ACETAMINOPHEN 10 MG/325 MG TAB PO PRN (01:15)
[2016-08-29 05:17] LABS: HEMATOCRIT 28.6 % (35.0-46.0); MEAN CELL VOLUME 88.8 FL (80.0-100.0); MEAN CORPUSCULAR HEMOGLOBIN 29.6 PG (27.0-34.0); MEAN CORPUSCULAR HGB CONC 33.3 % (32.0-36.0); PLATELET COUNT 202 TH/MM3 (150-450); RED BLOOD COUNT 3.22 MIL/MM3 (4.00-5.30); RED CELL DISTRIBUTION WIDTH 15.7 % (11.6-17.2); REVIEW FLAG FINAL; WHITE BLOOD COUNT 9.7 TH/MM3 (4.0-11.0)
[2016-08-29 05:24] LABS: APTT (PATIENT) 31.2 SEC (24.3-30.1)
[2016-08-29 05:32] LABS: BICARBONATE 29.2 MEQ/L (21.0-32.0); POTASSIUM 4.2 MEQ/L (3.5-5.1)
[2016-08-29] MEDS: INSULIN NovoLIN REGULAR SUPPLEMENTAL SCALE SQ SCH ×2 (06:00)
--- NOTE | 2016-08-29 07:46 | PD.VS.PN ---
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 Ambulating without pain Stopped hep gtt last night and will use ASA (81) and plavix but not anticoagulation - appreciate concerns raised by hematology. Can get outpatient GI w/u for anemia, which predated vascular surgery. Hct stable post-op pain controlled with meds. Margie diet.. Objective Vitals/I&O Date Time Temp Pulse Resp B/P Pulse Ox O2 Delivery O2 Flow Rate FiO2 08/29/16 06:00 68 08/29/16 05:00 67 08/29/16 04:08 92 Nasal Cannula 1.50 08/29/16 04:00 83 08/29/16 04:00 97.8 83 18 148/76 92 08/29/16 02:00 67 08/29/16 01:00 76 08/29/16 00:00 83 08/28/16 23:00 98.5 86 16 138/78 92 08/28/16 23:00 71 08/28/16 22:00 71 08/28/16 21:00 70 08/28/16 20:00 69 08/28/16 19:30 94 Room Air 08/28/16 19:30 98.8 80 18 134/77 93 08/28/16 19:30 80 08/28/16 18:00 75 08/28/16 17:51 94 21 08/28/16 17:00 80 08/28/16 16:00 68 08/28/16 15:00 71 08/28/16 15:00 98.6 75 18 134/75 94 08/28/16 14:00 70 08/28/16 13:00 68 08/28/16 12:00 66 08/28/16 11:00 98.4 69 16 116/66 92 08/28/16 11:00 69 08/28/16 10:00 77 08/28/16 09:00 92 21 08/28/16 09:00 69 08/28/16 08:00 82 08/29/16 08/29/16 08/29/16 07:00 15:00 23:00 Intake Total 0 ml Output Total 800 ml Balance -800 ml Exam: B groin VACs removed. Incisions intact, minimal drainage. Mild ecchymoses Feet warm Pulses: + signals bilaterally. Laboratory Laboratory Tests Test 08/28/16 08/28/16 08/29/16 10:51 14:29 04:49 Prothrombin Time 10.9 Prothromb Time International 1.0 Ratio Activated Partial 37.9 31.2 Thromboplast Time White Blood Count 9.7 Red Blood Count 3.22 Hemoglobin 9.5 Hematocrit 28.6 Mean Corpuscular Volume 88.8 Mean Corpuscular Hemoglobin 29.6 Mean Corpuscular Hemoglobin 33.3 Concent Red Cell Distribution Width 15.7 Platelet Count 202 Mean Platelet Volume 10.3 Sodium Level 137 Potassium Level 4.2 Chloride Level 102 Carbon Dioxide Level 29.2 Anion Gap 6 Blood Urea Nitrogen 11 Creatinine 0.48 Estimat Glomerular Filtration 131 Rate Random Glucose 97 Calcium Level 8.6 Assessment and Plan Plan 1. B CFE TEA w/ patch and iliac stents - d/c today 2. ASA/plavix post-discharge but not coumadin 3. F/U with GI for outpatient w/u 4. RTC 2 weeks with ABIs - I will schedule 5. Wellbutrin for efforts at smoking cessation Discharge Planning today Bernardo Avila MD Aug 29, 2016 07:46
[2016-08-29] MEDS: CYANOCOBALAMIN 1,000 MCG TAB PO SCH (08:22)
[2016-08-29] MEDS: buPROPion HCL 150 MG SUSTAINED RELEASE TAB PO SCH (08:23)
[2016-08-29] MEDS: LOSARTAN 25 MG TAB PO SCH (08:23)
[2016-08-29] MEDS: DOCUSATE SODIUM 100 MG CAP PO SCH (08:23)
[2016-08-29] MEDS: PRAVASTATIN SOD 20 MG TAB PO SCH (08:23)
[2016-08-29] MEDS: FERROUS SULFATE 325 MG (65 MG ELEMENTAL IRON) TAB PO SCH (08:26)
[2016-08-29] MEDS ORDERED: IRON SUCROSE INJ 200 MG in SODIUM CHLORIDE 0.9% INJ 100 ML IV SCH (09:00)
[2016-08-29] MEDS ORDERED: CLOPIDOGREL 75 MG TAB PO SCH (09:00)
[2016-08-29] MEDS ORDERED: BUPR150CR PO (09:28)
[2016-08-29] MEDS ORDERED: PLAV75TA29 PO (09:28)
--- NOTE | 2016-08-29 09:48 | PD.VS.DC ---
Discharge Summary Admission Date: Aug 26, 2016 at 08:28 Discharge Date: Aug 29, 2016 Admission Diagnosis: (1) Peripheral arterial disease (2) Iliac artery stenosis, bilateral Discharge Diagnosis: (1) Peripheral arterial disease Status: Chronic Brief History from admission 61 yo lady with PAD and B LE leg pain, worsening, no motor dysfunction, no tissue loss Procedure(s): B HOGSHEAD DUMPER TEA with patch angioplasty Significant Findings Laboratory Tests Test 08/26/16 08/26/16 08/27/16 08/27/16 14:45 22:35 05:45 11:42 Red Blood Count 3.62 MIL/MM3 3.57 MIL/MM3 (4.00-5.30) (4.00-5.30) Hemoglobin 10.6 GM/DL 10.0 GM/DL (11.6-15.3) (11.6-15.3) Hematocrit 32.2 % 31.8 % (35.0-46.0) (35.0-46.0) Activated Partial 71.8 SEC 47.4 SEC 46.1 SEC Thromboplast Time (24.3-30.1) (24.3-30.1) (24.3-30.1) Creatinine 0.45 MG/DL 0.46 MG/DL (0.50-1.00) (0.50-1.00) Calcium Level 7.9 MG/DL 8.2 MG/DL (8.5-10.1) (8.5-10.1) Aspartate Amino Transf 11 U/L (15-37) (AST/SGOT) Total Protein 5.6 GM/DL (6.4-8.2) Albumin 2.5 GM/DL (3.4-5.0) White Blood Count 14.1 TH/MM3 (4.0-11.0) Mean Corpuscular Hemoglobin 31.5 % Concent (32.0-36.0) Neutrophils (%) (Auto) 81.0 % (16.0-70.0) Neutrophils # (Auto) 11.4 TH/MM3 (1.8-7.7) Monocytes # (Auto) 1.0 TH/MM3 (0-0.9) Potassium Level 3.2 MEQ/L (3.5-5.1) Test 08/28/16 08/28/16 08/29/16 04:54 14:29 04:49 White Blood Count 11.5 TH/MM3 (4.0-11.0) Red Blood Count 3.39 MIL/MM3 3.22 MIL/MM3 (4.00-5.30) (4.00-5.30) Hemoglobin 10.0 GM/DL 9.5 GM/DL (11.6-15.3) (11.6-15.3) Hematocrit 30.6 % 28.6 % (35.0-46.0) (35.0-46.0) Neutrophils (%) (Auto) 79.7 % (16.0-70.0) Neutrophils # (Auto) 9.1 TH/MM3 (1.8-7.7) Activated Partial 38.5 SEC 37.9 SEC 31.2 SEC Thromboplast Time (24.3-30.1) (24.3-30.1) (24.3-30.1) Iron Level 7 MCG/DL (50-170) Percent Iron Saturation 2.4 % (20-50) Creatinine 0.48 MG/DL (0.50-1.00) Hospital Course: Pt GENERAL: Pt resting in bed comfortably, states she has no pain with ambulation, she stated her symptoms have resolved since surgery. Pt is alert and oriented times 3 in NAD. SKIN: Warm and dry. Pt's bilat groin incisions intact with no redness drainage or swelling. MUSCULOSKELETAL: No cyanosis, or edema noted Bilat pedal pulses with strong signals via doppler Discharge Condition: Good Discharge Disposition: Discharge Home Discharge Instructions: Pt to start Plavix 75 mg PO daily Pt is to take Aspirin 81 mg PO daily Continue Wellbutrin 150 mg daily for smoking cessation F/U in the office on 09/20/16 at 215 with an LIYAH study done in the office. Call the office for any questions or concerns such as fever, increased pain or if incisions present with increased redness, drainage, or swelling. Any questions or concerns: Call [facility] at [facility] [phone] Lizett Joshua Aug 29, 2016 09:48
[2016-08-29] MEDS ORDERED: GETGO ROLLING W1 MI1 (11:39)
== END 2016-08-29 12:08 | disposition home or self-care (01) | DRG 254 ==
LOC: EDUNIT# 08-08 08:30 → HSDI 08-26 08:28 → HCIN 08-26 16:30
PROVIDERS: ADMIT Surgery; ATTEND Surgery
PROC: 04CL0ZZ Extirpation of Matter from Left Femoral Artery, Open Approach (ICD-10-PCS; principal; 2016-08-27)
PROC: 04UK0KZ Supplement Right Femoral Artery with Nonautologous Tissue Substitute, Open Approach (ICD-10-PCS; 2016-08-27)
PROC: 04CK0ZZ Extirpation of Matter from Right Femoral Artery, Open Approach (ICD-10-PCS; 2016-08-27)
PROC: 04UL0KZ Supplement Left Femoral Artery with Nonautologous Tissue Substitute, Open Approach (ICD-10-PCS; 2016-08-27)
PROC: 047D3DZ Dilation of Left Common Iliac Artery with Intraluminal Device, Percutaneous Approach (ICD-10-PCS; 2016-08-27)
PROC: 047C3DZ Dilation of Right Common Iliac Artery with Intraluminal Device, Percutaneous Approach (ICD-10-PCS; 2016-08-27)
PROC: 047H3DZ Dilation of Right External Iliac Artery with Intraluminal Device, Percutaneous Approach (ICD-10-PCS; 2016-08-27)
PROC: 047J3DZ Dilation of Left External Iliac Artery with Intraluminal Device, Percutaneous Approach (ICD-10-PCS; 2016-08-27)
PROC: B40D1ZZ Plain Radiography of Aorta and Bilateral Lower Extremity Arteries using Low Osmolar Contrast (ICD-10-PCS; 2016-08-27)
DX: I73.9 Peripheral vascular disease, unspecified (principal); I10 Essential (primary) hypertension; D50.9 Iron deficiency anemia, unspecified; F17.210 Nicotine dependence, cigarettes, uncomplicated; E78.5 Hyperlipidemia, unspecified; E87.6 Hypokalemia; I25.10 Atherosclerotic heart disease of native coronary artery without angina pectoris; I70.8 Atherosclerosis of other arteries; R19.5 Other fecal abnormalities; Z86.010 Personal history of colon polyps
CPT/HCPCS: 36430; 75716; 80048; 80053; 82607; 82728; 82747; 82948; 83010; 83540; 83550; 83615; 85025; 85027; 85610; 85730; 86850; 86900; 86901; 86920; 94150; C1725; C1768; C1769; C1876; J0690; J1644; J1756; J2250; J2370; J2405; J2710; J2720; J3010; J7030; P9016; Q9967

== ENCOUNTER → 2016-08-21 | Outpatient (CLI) | payer OTHER ==
[~2016-08-21] MED LIST: AMIT50TA3 PO; AMLO10TA2 PO; ASPI81CH CHEW; BUPR150CR PO; CILO100T PO; COUM5TAB PO; FERR1TAB58 PO; GETGO ROLLING W1 MI1; GINK120T2 PO; LOSA25TA PO; PANT40TA3 PO; PLAV75TA29 PO; SIMV10TA PO; SLOW50TA PO; VITA500T4 PO
[2016-08-21 11:55] LABS: MEAN CELL VOLUME 88.1 FL (80.0-100.0); MEAN CORPUSCULAR HEMOGLOBIN 28.1 PG (27.0-34.0); MEAN CORPUSCULAR HGB CONC 31.9 % (32.0-36.0); PLATELET COUNT 239 TH/MM3 (150-450); RED CELL DISTRIBUTION WIDTH 14.9 % (11.6-17.2); REVIEW FLAG FINAL; WHITE BLOOD COUNT 6.7 TH/MM3 (4.0-11.0)
--- NOTE | 2016-08-21 11:57 | RADRPT ---
EXAM DATE/TIME: 08/21/2016 11:42 [place] COMPARISON: No previous studies available for comparison. INDICATIONS : Evaluate for penumonia, pneumothorax, or communicable disease. Pre op for thromboendarterectomy. MEDICAL HISTORY : None. SURGICAL HISTORY : None. ENCOUNTER: Initial ACUITY: 1 day PAIN SCORE: 0/10 LOCATION: chest FINDINGS: PA and lateral views of the chest demonstrate the lungs to be symmetrically aerated without evidence of mass, infiltrate or effusion. The cardiomediastinal contours are unremarkable. Osseous structure s are intact. CONCLUSION: No acute disease. Solomon Flynn MD on August 21, 2016 at 11:55 Board Certified Radiologist. This report was verified electronically.
[2016-08-21 12:01] LABS: BLOOD, URINE NEG (NEG); COMMENT (UR) CULT NOT INDICATED; CULTURE IF INDICATED CULT NOT INDICATED; GLUCOSE,URINE NEG (NEG); KETONE, URINE NEG (NEG); NITRITE,URINE NEG (NEG); PH, URINE 6.5 (5.0-8.5); SQUAMOUS EPITHELIAL CELL URINE 1 /hpf (0-5); URINE COLOR LIGHT-YELLOW (YELLW/STRAW)
[2016-08-21 12:13] LABS: PROTHROMBIN TIME - PATIENT 10.6 SEC (9.8-11.6)
--- NOTE | 2016-08-21 12:20 | EKG ---
Date Performed: 08/21/2016 Time Performed: 11:03:27 PTAGE: 61 years EKG: Sinus rhythm NORMAL ECG NO PREVIOUS TRACING DOCTOR: Jerrod Schulz Interpretating Date/Time 08/21/2016 12:19:18
[2016-08-21 12:28] LABS: ALKALINE PHOSPHATASE 69 U/L (45-117); ALT (GPT) 17 U/L (10-53); ANION GAP 7 MEQ/L (5-15); AST (GOT) 10 U/L (15-37); BICARBONATE 30.6 MEQ/L (21.0-32.0); BLOOD UREA NITROGEN 7 MG/DL (7-18); CHLORIDE 104 MEQ/L (98-107); GLOMERULAR FILTRATION RATE 141 ML/MIN (>89); GLUCOSE,FASTING 89 MG/DL (74-99); POTASSIUM 3.6 MEQ/L (3.5-5.1); SODIUM (NA) 142 MEQ/L (136-145); TOTAL BILIRUBIN ADULT 0.3 MG/DL (0.2-1.0)
== END ==
LOC: CPRE 08-05 11:41
PROVIDERS: ATTEND Surgery
DX: I73.9 Peripheral vascular disease, unspecified (principal)
CPT/HCPCS: 36415; 71020; 80053; 81001; 85027; 85610; 93005

== ENCOUNTER 2017-01-24 09:37 | Inpatient (IN) | payer OTHER ==
[~2017-01-24] VITALS: Ht 147.3 cm; Wt 54.0 kg
[~2017-01-24 09:37] MED LIST changes: -AMIT50TA3 PO; -AMLO10TA2 PO; -ASPI81CH CHEW; -COUM5TAB PO; -FERR1TAB58 PO; -SLOW50TA PO
[2017-01-24] MEDS ORDERED: SLOW50TA PO (13:30)
[2017-01-24] MEDS ORDERED: ASPI81CH CHEW (13:30)
[2017-01-29] VITALS (8 sets, daily range): BP systolic 116–148; BP diastolic 51–72; PULSE 61–78; RESP 16–20; TEMP 97.7–98.9; O2SAT 96–99
[2017-01-29] MEDS ORDERED: METOPROLOL TARTRATE 25 MG TAB PO PRN (06:30)
[2017-01-29] MEDS ORDERED: INSULIN HUMAN REGULAR 1,000 UNITS/10 ML VIAL SQ PRN (06:30)
[2017-01-29] MEDS ORDERED: CHLORHEXIDINE GLUCONATE 2 % 1 PACK (2 CLOTHS) TOPICAL PRN (06:30)
[2017-01-29] MEDS ORDERED: LACTATED RINGER'S 1000 ML IV PRN (06:30)
[2017-01-29] MEDS ORDERED: POVIDONE IODINE 5% (ANTISEPSIS KIT) 4 APPLICATIONS EACH NARE PRN (06:30)
[2017-01-29] MEDS ORDERED: SODIUM CHLORID 0.9% 500 ML IV PRN (06:30)
[2017-01-29] MEDS ORDERED: THROMBIN (TOPICAL) 20,000 UNIT SPRAY KIT ONE (06:42)
[2017-01-29 06:55] LABS: AUTOMATED NEUTROPHIL # 4.1 TH/MM3 (1.8-7.7); BASOPHIL % 0.6 % (0.0-2.0); EOSINOPHIL # 0.1 TH/MM3 (0-0.4); EOSINOPHIL % 1.2 % (0.0-4.0); HEMO FLAGS DIFF FINAL; LYMPHOCYTE # 0.8 TH/MM3 (1.0-4.8); MEAN CELL VOLUME 78.3 FL (80.0-100.0); MEAN CORPUSCULAR HEMOGLOBIN 24.7 PG (27.0-34.0); MEAN CORPUSCULAR HGB CONC 31.6 % (32.0-36.0); MONO % 8.4 % (0.0-8.0); NEUT % 74.8 % (16.0-70.0); PLATELET COUNT 189 TH/MM3 (150-450); RED CELL DISTRIBUTION WIDTH 21.6 % (11.6-17.2); WHITE BLOOD COUNT 5.4 TH/MM3 (4.0-11.0)
--- NOTE | 2017-01-29 07:25 | HHI.HP ---
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 Legs improved for a time but now have worsened. + Rest pain. no motor dysfunction and no tissue loss. Does have a h/o anemia of unknown etiology but rec'd 2U PRBC Fri as she occasionally does as outpatient and Hct 29 today. No symptoms of SOB or fatigue Past/Family/Social History Past Medical History chronic anemia of unknown etiology -has had extensive w/u but rec's reg transfusion HTN XOL CAD Past Surgical History B groin reconstructions as above Social History smokes - have discussed cessation at length with patient in past Family History NC Home Medications Active Scripts Clopidogrel (Plavix)75 Mg Tab75 Mg PO DAILY #30 TAB Ref 6 Prov:Lizett Joshua ANIMAL SCIENCE INSTRUCTOR 08/29/16 Reported Medications Aspirin 81 Mg Chew81 Mg CHEW DAILY Ref 0 01/24/17 Ferrous Sulfate ER (Slow Release Iron ER)50 Mg Tab65 Mg PO DAILY Ref 0 01/24/17 Losartan 25 Mg Tab12.5 Mg PO DAILY #15 TAB Ref 0 08/21/16 Cilostazol 100 Mg [id number] Mg PO BID Ref 0 08/21/16 Discontinued Reported Medications Cyanocobalamin (Vitamin B-12)500 Mcg [id number] Mcg PO DAILY #1 BOTTLE Ref 0 08/21/16 Simvastatin 10 Mg Tab10 Mg PO DAILY #30 TAB Ref 0 08/21/16 Ferrous Sulfate (Iron)50 Mg Tab65 Mg PO DAILY Ref 0 08/21/16 Amlodipine 10 Mg Tab10 Mg PO DAILY #30 TAB Ref 0 08/21/16 Discontinued Scripts Walker Rolling/GetGo 1 Mis Mis #1 EA .ROUTE DIRECTED PRN (Assistace in abulation post op) Ref 0 Prov:Lizett JoshuaP 08/29/16 Bupropion HCl ER 12 HR (Wellbutrin SR 12 HR)150 Mg [id number] Mg PO DAILY #30 TAB Ref 3 Prov:Lizett JoshuaP 08/29/16 Coded Allergies: No Known Allergies (Unverified , 08/21/16) Review of Systems Constitutional: COMPLAINS OF: Change in appetite, Night Sweats, DENIES: Fatigue, Weight loss, Chills Musculoskeletal: COMPLAINS OF: Muscle aches Hematologic/lymphatic: DENIES: Bruising Physical Exam Vitals/I&O Date Time Temp Pulse Resp B/P Pulse Ox O2 Delivery O2 Flow Rate FiO2 01/29/17 06:47 98.0 73 18 148/72 98 Neuro: awake alert, NAD HEENT: NC/AT Neck: no JVD Heart: reg rate, no M Lungs: clear B Abdomen: nontender Vascular: no palpable pedal pulses Extremities: L groin with healed incision. L foot ruborous, motor intact and skin intact Laboratory Tests Test 01/29/17 06:32 White Blood Count 5.4 Red Blood Count 3.70 Hemoglobin 9.2 Hematocrit 29.0 Mean Corpuscular Volume 78.3 Mean Corpuscular Hemoglobin 24.7 Mean Corpuscular Hemoglobin 31.6 Concent Red Cell Distribution Width 21.6 Platelet Count 189 Mean Platelet Volume 9.0 Neutrophils (%) (Auto) 74.8 Lymphocytes (%) (Auto) 15.0 Monocytes (%) (Auto) 8.4 Eosinophils (%) (Auto) 1.2 Basophils (%) (Auto) 0.6 Neutrophils # (Auto) 4.1 Lymphocytes # (Auto) 0.8 Monocytes # (Auto) 0.5 Eosinophils # (Auto) 0.1 Basophils # (Auto) 0.0 CBC Comment DIFF FINAL Differential Comment Blood Type O NEGATIVE Assessment and Plan Plan to OR for L groin reconstruction and bypass Pt aware of risks/benefits. CVICU post-op All questions answered and patient's operative site marked. Discharge Planning likely 7-10 days. Family phone number : [phone] Bernardo Avila MD Jan 29, 2017 07:25
[2017-01-29] MEDS ORDERED: PROTAMINE SULFATE 50 MG/5 ML VIAL ONE (07:42)
[2017-01-29] MEDS ORDERED: HEPARIN SODIUM - IV 10,000 UNITS/10 ML VIAL ONE (07:42)
[2017-01-29] MEDS ORDERED: ceFAZolin INJ 1,000 MG VIAL IV ONE ×2 (07:59→11:50)
[2017-01-29] MEDS: HEPARIN SODIUM - IV 10,000 UNITS/10 ML VIAL ONE ×2 (08:15→09:37)
[2017-01-29] MEDS ORDERED: IOHEXOL 300 MG/ML 50 ML BTL (for RAD DIAG) OTHER ONE (09:15)
[2017-01-29] MEDS ORDERED: [UNRECOGNIZED DRUG - OTHER] IV ONE (09:37)
[2017-01-29] MEDS ORDERED: LR IV ONE (09:37)
[2017-01-29] MEDS ORDERED: THROMBIN (TOPICAL) 20,000 UNIT SPRAY KIT OTHER ONE (09:41)
[2017-01-29] MEDS ORDERED: PROTAMINE SULFATE 50 MG/5 ML VIAL IV ONE (11:27)
[2017-01-29] MEDS ORDERED: LACTATED RINGER'S 1000 ML INJ 1,000 ML IV ONE (12:00)
[2017-01-29] MEDS ORDERED: ONDANSETRON HCL 4 MG/2 ML VIAL IV PUSH ONE (12:00)
[2017-01-29] MEDS ORDERED: PHENYLEPHRINE HCL 10 MG/ML VIAL IV ONE (12:00)
[2017-01-29] MEDS ORDERED: PHENYLEPH/NS 1000 MCG/10 ML SYR IV ONE (12:00)
[2017-01-29] MEDS ORDERED: PROPOFOL 200 MG/20 ML AMP IV ONE (12:00)
[2017-01-29] MEDS ORDERED: NORMOSOL R INJ 1,000 ML IV ONE (12:00)
[2017-01-29] MEDS ORDERED: ePHEDrine/NS 25 MG/5 ML SYR IV ONE (12:00)
[2017-01-29] MEDS ORDERED: SODIUM CHLOR 0.9% 250 ML INJ 250 ML IV ONE (12:00)
--- NOTE | 2017-01-29 12:08 | HHI.PR ---
Immediate Post Op Note Procedure Date: Jan 29, 2017 Pre Op Diagnosis: PAD with rest pain Post Op Diagnosis: PAD with rest pain Surgeon: Bernardo Avila Chute Puller(s): Donell Ramirez Procedure: 1. L ilioprofunda bypass (8mm Dacron) 2. Angiogram L LE 3. L RADHA CONTAINER REPAIRER (7mm DCB for ISR) 4. L EIA CONTAINER REPAIRER/stent (7x40 Z[place]ver) 5. L fem-BK pop (cryo vein) Findings: very small profunda RADHA and proximal EIA ISR, treated successfully with DCB CONTAINER REPAIRER Additional Information: + Doppler signals in PT/DP at conclusion of case Complications: none Specimen(s) removed: none for pathology Estimated blood loss: 500mL Anesthesia: General Drains: None Fluids: 2300mL x'oid; 2U PRBC; 500mL UOP IVF Patient to: Other (CVICU) Patient Condition: Good Implant/Devices: SEE IMPLANT LOG (if applicable) Date/Time of Procedure: SEE SURGICAL CARE RECORD Bernardo Avila MD Jan 29, 2017 12:08
[2017-01-29] MEDS ORDERED: MORPHINE SULFATE 4 MG/ML INJ IV PRN (12:15)
[2017-01-29] MEDS: LACTATED RINGER'S 1000 ML INJ 1,000 ML IV SCH (13:00)
[2017-01-29] MEDS ORDERED: fentaNYL CITRATE 250 MCG/5 ML AMP ONE (13:12)
[2017-01-29 15:27] LABS: HEMATOCRIT 31.3 % (35.0-46.0); MEAN CELL VOLUME 81.9 FL (80.0-100.0); MEAN CORPUSCULAR HEMOGLOBIN 25.3 PG (27.0-34.0); MEAN CORPUSCULAR HGB CONC 30.9 % (32.0-36.0); PLATELET COUNT 134 TH/MM3 (150-450); RED BLOOD COUNT 3.82 MIL/MM3 (4.00-5.30); RED CELL DISTRIBUTION WIDTH 19.2 % (11.6-17.2); REVIEW FLAG FINAL; WHITE BLOOD COUNT 14.4 TH/MM3 (4.0-11.0)
--- NOTE | 2017-01-29 15:35 | PD.CONS ---
[facility] Service Critical Care Medicine Consult Requested By Vascular surgery Reason for Consult Status post vascular bypass surgery, peripheral artery disease Primary Care Physician Cathy Willis M.D. History of Present Illness This is a 61-year-old female patient with a history of peripheral artery disease. The patient underwent bilateral groin reconstruction with iliac stent placement 09/05/2016. The patient subsequently had complaints of bilateral lower extremity pain left greater than right. Evaluation and imaging studies were performed. CT scan was noted to have iliac stents patent external iliac artery was noted to have restenosis. SFA was included but it was noted there was popliteal reconstitution. Today the patient underwent a left ilioprofunda bypass, left femoral bypass, iliac angioplasty with stent placement. Review of Systems ROS Review of systems negative with exception of history of present illness. Past Family Social History Allergies: Coded Allergies: No Known Allergies (Unverified , 08/21/16) Past Medical History PAD, numbness and paresthesias bilateral lower extremities, chronic anemia and history of GI bleed Past Surgical History 08/2016 bilateral groin reconstruction with iliac stent placement Reported Medications see MAR Active Ordered Medications see MAR Social History Extensive smoking history greater than 20 years. Denies EtOH or illicit drug use Physical Exam Vital Signs Vital Signs Date Time Temp Pulse Resp B/P Pulse Ox O2 Delivery O2 Flow Rate FiO2 01/29/17 13:00 68 01/29/17 06:47 98.0 73 18 148/72 98 Physical Exam GENERAL: Well-developed well-nourished female in mild distress with complaints of pain SKIN: Warm and dry. Hyperemia noted left lower extremity HEAD: Atraumatic. Normocephalic. EYES: Pupils equal and round. No scleral icterus. No injection or drainage. ENT: No nasal bleeding or discharge. Mucous membranes pink and moist. Uvula midline. NECK: Trachea midline. No JVD. CARDIOVASCULAR: Normal rate, regular rhythm. RESPIRATORY: No accessory muscle use. Clear to auscultation. Breath sounds equal bilaterally. Nasal cannula GASTROINTESTINAL: Abdomen soft, non-tender, nondistended. No guarding. MUSCULOSKELETAL: Extremities without clubbing, cyanosis, or edema. No obvious deformities. Hyperemia left lower extremity, specifically left ankle and left foot . Provena left groin Dermabond surgical incision left mid calf, no edema or erythema or drainage NEUROLOGICAL: Awake and alert. RASS 0. No gross focal/sensory deficits. Follows commands in all 4 extremities. Laboratory Laboratory Tests Test 01/29/17 06:32 White Blood Count 5.4 Red Blood Count 3.70 Hemoglobin 9.2 Hematocrit 29.0 Mean Corpuscular Volume 78.3 Mean Corpuscular Hemoglobin 24.7 Mean Corpuscular Hemoglobin 31.6 Concent Red Cell Distribution Width 21.6 Platelet Count 189 Mean Platelet Volume 9.0 Neutrophils (%) (Auto) 74.8 Lymphocytes (%) (Auto) 15.0 Monocytes (%) (Auto) 8.4 Eosinophils (%) (Auto) 1.2 Basophils (%) (Auto) 0.6 Neutrophils # (Auto) 4.1 Lymphocytes # (Auto) 0.8 Monocytes # (Auto) 0.5 Eosinophils # (Auto) 0.1 Basophils # (Auto) 0.0 CBC Comment DIFF FINAL Differential Comment Blood Type O NEGATIVE Antibody Screen NEGATIVE Crossmatch Leukocyte-Reduced Red Blood Cells Blood Bank Comment Result Diagram: 01/29/17 0632 Assessment and Plan Assessment and Plan Plan by systems: Neurologic: Postoperative pain Bilateral lower extremity paresthesias -GCS 15, VAS scale currently 7/10 left lower extremity -Initiate Ofirmev 1 g every 6 hours 24 hours Respiratory: Tobacco abuse -Counseled on smoking cessation -Nicotine patch medium dose 7 days/or during hospitalization -Begin incentive spirometry Cardiovascular: PAD -Management per vascular surgery-heparin infusion -Telemetry normal sinus rhythm Renal: -Cox -- Strict I/Os FEN/GI: -Electrolyte replacement per ICU protocol -Monitor BMP -Heart healthy diet Heme/ID: Chronic anemia -Currently being transfused 2 units packed red blood cells (EBL 600 cc) -Obtain posttransfusion CBC Endocrine: Glucose monitoring per ICU protocol -- SSI Prophylaxis: GI Prophylaxis Protonix DVT Prophylaxis -- SCDs Lines: Right radial a line (day #1), peripheral IVs 2 Dispo: This patient remains critically ill with one or more organ systems which are or may become a threat to life. I have spent in excess of 35 minutes discontinuously in the care and management of this patient. This time is exclusive of procedures, and includes, but is not limited to, evaluation of the patient, review of the medical record, discussions with family, consultants, nursing staff, or respiratory therapy, and documentation in the medical record. Code Status Full Discussed Condition With PRODUCTION DIRECTOR, and patient at bedside Nannette Syed MD Jan 29, 2017 15:35
[2017-01-29 15:42] LABS: APTT (PATIENT) 24.7 SEC (24.3-30.1); PROTHROMBIN TIME - PATIENT 10.8 SEC (9.8-11.6)
[2017-01-29] MEDS: ACETAMINOPHEN 1000 MG/100 ML VIAL IV SCH ×2 (15:45→20:08)
[2017-01-29 15:53] LABS: BICARBONATE 27.6 MEQ/L (21.0-32.0); POTASSIUM 3.5 MEQ/L (3.5-5.1)
[2017-01-29] MEDS: HEPARIN-D5W INJ 250 ML IV SCH (17:57)
[2017-01-29] MEDS: NICOTINE 14 MG/24 HR PATCH T-DERMAL SCH (18:00)
[2017-01-29] MEDS: FAMOTIDINE 20 MG TAB PO SCH (20:07)
[2017-01-29] MEDS: ATORVASTATIN 40 MG TAB PO SCH (20:07)
[2017-01-29] MEDS: DOCUSATE SODIUM 100 MG CAP PO SCH (20:07)
[2017-01-29] MEDS: HYDROmorphone HCL 2 MG TAB PO PRN (21:07)
[2017-01-30] VITALS (16 sets, daily range): BP systolic 121–159; BP diastolic 55–82; PULSE 51–100; RESP 18–20; TEMP 98.6–99.5; O2SAT 94–99
[2017-01-30 00:40] LABS: APTT (PATIENT) 120.2 SEC (24.3-30.1)
[2017-01-30] MEDS: ACETAMINOPHEN 1000 MG/100 ML VIAL IV SCH (03:20)
[2017-01-30] MEDS: HYDROmorphone HCL 2 MG TAB PO PRN (03:20)
[2017-01-30 04:13] LABS: HEMATOCRIT 27.4 % (35.0-46.0); MEAN CELL VOLUME 80.6 FL (80.0-100.0); MEAN CORPUSCULAR HEMOGLOBIN 25.8 PG (27.0-34.0); PLATELET COUNT 126 TH/MM3 (150-450); RED BLOOD COUNT 3.39 MIL/MM3 (4.00-5.30); RED CELL DISTRIBUTION WIDTH 19.5 % (11.6-17.2); REVIEW FLAG FINAL; WHITE BLOOD COUNT 7.2 TH/MM3 (4.0-11.0)
[2017-01-30 04:25] LABS: APTT (PATIENT) 94.5 SEC (24.3-30.1)
[2017-01-30 04:39] LABS: BICARBONATE 29.9 MEQ/L (21.0-32.0)
[2017-01-30] MEDS: ASPIRIN 81 MG CHEW TAB PO SCH (08:03)
[2017-01-30] MEDS: METOPROLOL TARTRATE 25 MG TAB PO SCH ×2 (08:04→20:42)
[2017-01-30] MEDS: DOCUSATE SODIUM 100 MG CAP PO SCH ×2 (08:04→20:42)
[2017-01-30] MEDS: FAMOTIDINE 20 MG TAB PO SCH ×2 (08:04→20:43)
[2017-01-30] MEDS: NICOTINE 14 MG/24 HR PATCH T-DERMAL SCH (08:14)
--- NOTE | 2017-01-30 08:43 | HHI.CCPN ---
Subjective Remarks/Hospital Course This is a 61-year-old female patient with a history of peripheral artery disease. The patient underwent bilateral groin reconstruction with iliac stent placement 09/05/2016. The patient subsequently had complaints of bilateral lower extremity pain left greater than right. Evaluation and imaging studies were performed. CT scan was noted to have iliac stents patent external iliac artery was noted to have restenosis. SFA was included but it was noted there was popliteal reconstitution. Today the patient underwent a left ilioprofunda bypass, left femoral bypass, iliac angioplasty with stent placement. Subjective: 01/30: TMax 98.6. The patient's pain was bilateral lower extremities better controlled last evening. Hyperemia of the left ankle and foot diminishing. Patient tolerating diet. Objective Vital Signs Date Time Temp Pulse Resp B/P Pulse Ox O2 Delivery O2 Flow Rate FiO2 01/30/17 08:26 94 Nasal Cannula 2.00 01/30/17 03:00 98.6 75 20 124/55 Intake and Output 01/29/17 01/29/17 01/30/17 08:00 16:00 00:00 Intake Total 1432 ml Output Total 590 ml Balance 842 ml Result Diagram: 01/30/17 0350 01/30/17 0350 Objective Remarks BP 143/53 Pulse 79 O2 saturation 98% on 2 L nasal cannula GENERAL: Well-developed well-nourished female with appropriate responsive SKIN: Warm and dry. Hyperemia noted left foot HEAD: Atraumatic. Normocephalic. EYES: Pupils equal and round. No scleral icterus. No injection or drainage. ENT: No nasal bleeding or discharge. Mucous membranes pink and moist. Uvula midline. NECK: Trachea midline. No JVD. CARDIOVASCULAR: Normal rate, regular rhythm. RESPIRATORY: No accessory muscle use. Clear to auscultation. Breath sounds equal bilaterally. Nasal cannula GASTROINTESTINAL: Abdomen soft, non-tender, nondistended. No guarding. MUSCULOSKELETAL: Extremities without clubbing, cyanosis, left lower extremity 2+ edema. No obvious deformities. Hyperemia left foot . Provena left groin Dermabond surgical incision left mid calf, no edema or erythema or drainage NEUROLOGICAL: Awake and alert. RASS 0. No gross focal/sensory deficits. Follows commands in all 4 extremities. Urinary Catheter: Yes A/P Assessment and Plan Plan by systems: Neurologic: Postoperative pain Bilateral lower extremity paresthesias -GCS 15, VAS scale currently 2/10 left lower extremity -Ofirmev 1 g every 6 hours 24 hours Respiratory: Tobacco abuse -Counseled on smoking cessation -Nicotine patch medium dose 7 days/or during hospitalization -Continue incentive spirometry -Maintain O2 sat 92%, wean off O2 via nasal cannula Cardiovascular: PAD S/P left ilio profunda bypass, left femoral popliteal bypass, left iliac angioplasty and stent placement POD #1 -Management per vascular surgery -Telemetry normal sinus rhythm Renal: -Cox, consider discontinuation -- Strict I/Os FEN/GI: -Electrolyte replacement per ICU protocol -Monitor BMP -Heart healthy diet -Bowel regimen Heme/ID: Chronic anemia -Hemoglobin stable 8.7 -Monitor CBC Endocrine: Glucose monitoring per ICU protocol -- SSI MSK: -PT evaluation and treat Prophylaxis: GI Prophylaxis Protonix DVT Prophylaxis -- SCDs Lines: Right radial a line (day #2), peripheral IVs 2 Dispo: Discussed with patient and PUBLICATIONS EDITOR at bedside. Level 3 Physician Nannette Marquez MD Jan 30, 2017 08:43
[2017-01-30] MEDS: REMOVE OLD PATCH T-DERMAL SCH (09:00)
[2017-01-30] MEDS ORDERED: IRON PO SCH (09:00)
[2017-01-30 09:07] LABS: APTT (PATIENT) 67.8 SEC (24.3-30.1)
--- NOTE | 2017-01-30 10:03 | PD.VS.PN ---
Subjective POD #: 1 Procedure(s): L ilioprofunda bypass, iliac PALLIATIVE SENIOR NP/stent, L fem-BK pop Subjective/Hospital Course looks good overall, sitting in chair c/o tingling in foot but pain better Objective Vitals/I&O Date Time Temp Pulse Resp B/P Pulse Ox O2 Delivery O2 Flow Rate FiO2 01/30/17 08:26 94 Nasal Cannula 2.00 01/30/17 03:00 98.6 75 20 124/55 98 01/30/17 03:00 75 01/29/17 23:46 97 Nasal Cannula 2.00 01/29/17 23:00 62 01/29/17 23:00 98.4 74 20 138/54 97 01/29/17 20:00 98.9 78 18 131/51 96 Arterial Line 01/29/17 17:12 97 Nasal Cannula 2.00 01/29/17 16:00 61 01/29/17 16:00 98.0 70 16 137/64 99 142/58 01/29/17 13:00 68 01/29/17 12:30 97.7 70 16 120/64 99 116/60 01/30/17 01/30/17 01/30/17 07:00 15:00 23:00 Intake Total 1346 ml Output Total 1050 ml Balance 296 ml Exam: L groin VAC in place L lower leg incision intact without ecchymoses or hematoma Strong L DP/PT Doppler signals Laboratory Laboratory Tests Test 01/29/17 01/29/17 01/29/17 01/30/17 14:13 15:09 23:50 03:50 Prothrombin Time 10.8 Prothromb Time International 1.0 Ratio Activated Partial 24.7 120.2 94.5 Thromboplast Time Sodium Level 141 138 Potassium Level 3.5 4.0 Chloride Level 106 103 Carbon Dioxide Level 27.6 29.9 Anion Gap 7 5 Blood Urea Nitrogen 8 8 Creatinine 0.35 0.31 Estimat Glomerular Filtration 188 216 Rate Random Glucose 83 97 Calcium Level 8.9 7.9 White Blood Count 14.4 7.2 Red Blood Count 3.82 3.39 Hemoglobin 9.7 8.7 Hematocrit 31.3 27.4 Mean Corpuscular Volume 81.9 80.6 Mean Corpuscular Hemoglobin 25.3 25.8 Mean Corpuscular Hemoglobin 30.9 32.0 Concent Red Cell Distribution Width 19.2 19.5 Platelet Count 134 126 Mean Platelet Volume 9.2 9.7 Test 01/30/17 08:20 Activated Partial 67.8 Thromboplast Time Assessment and Plan Plan Looks good Revascularization successful 1. Elavil for likely neuropathic/reperfusion sensation 2. Continue hep gtt and transition to coumadin starting tomorrow (POD#2) for graft protection x 6m 3. Resume reg diet and meds 4. OOB/PT 5. D/C Cox and a-line 6. HL IVF Discharge Planning likely early next week out of ICU tomorrow Bernardo Avila MD Jan 30, 2017 10:03
[2017-01-30] MEDS: HEPARIN-D5W INJ 250 ML IV SCH (12:35)
[2017-01-30] MEDS: LACTATED RINGER'S 1000 ML INJ 1,000 ML IV SCH (12:49)
[2017-01-30 18:58] LABS: APTT (PATIENT) 57.1 SEC (24.3-30.1)
[2017-01-30] MEDS: ATORVASTATIN 40 MG TAB PO SCH (20:43)
[2017-01-30] MEDS: AMITRIPTYLINE HCL 50 MG TAB PO SCH (20:46)
[2017-01-31] VITALS (27 sets, daily range): BP systolic 127–152; BP diastolic 68–81; PULSE 60–98; RESP 16–19; TEMP 98.4–100.3; O2SAT 95–99
[2017-01-31 01:00] LABS: APTT (PATIENT) 53.7 SEC (24.3-30.1)
--- NOTE | 2017-01-31 06:55 | PD.VS.PN ---
Subjective POD #: 2 Procedure(s): L ilioprofunda bypass, iliac ACCOUNT GENERAL MANAGER/stent, L fem-BK pop Subjective/Hospital Course Looks good; has not ambulated yet Margie po still c/o tingling in L foot - started elavil yesterday Objective Vitals/I&O Date Time Temp Pulse Resp B/P Pulse Ox O2 Delivery O2 Flow Rate FiO2 01/31/17 04:00 78 01/31/17 03:05 98.4 77 18 142/73 99 01/31/17 03:00 83 01/31/17 03:00 80 01/31/17 02:00 98 01/31/17 01:00 85 01/31/17 00:00 84 01/30/17 23:05 98.7 77 18 153/78 99 01/30/17 23:00 76 01/30/17 22:00 86 01/30/17 21:00 90 01/30/17 20:50 18 01/30/17 20:00 82 01/30/17 19:48 99.0 88 18 159/82 98 01/30/17 19:00 89 01/30/17 18:00 91 01/30/17 17:00 90 01/30/17 16:04 83 01/30/17 15:57 98.9 84 18 121/68 96 01/30/17 15:56 51 01/30/17 11:30 99.5 75 18 122/62 94 01/30/17 11:30 100 01/30/17 08:26 94 Nasal Cannula 2.00 01/30/17 07:30 99.0 96 18 127/71 97 01/30/17 07:30 67 01/31/17 01/31/17 01/31/17 07:00 15:00 23:00 Intake Total 240 ml Output Total 1000 ml Balance -760 ml Exam: L groin incision covered with VAC - no hematoma appreciated Lower leg incision c/d/i foot warm, motor intact, modest edema Strong Doppler signals DP/PT Laboratory Laboratory Tests Test 01/30/17 01/30/17 01/30/17 08:20 18:19 23:44 Activated Partial 67.8 57.1 53.7 Thromboplast Time Assessment and Plan Plan Looks good Revascularization successful 1.PT/OOB and ambulate; PT ordered 2. Start coumadin today for goal INR 2. Transition IV hep gtt to therapeutic lovenox 3. Continue elavil for likely neuropathic pain potentially related to reperfusion 4. Will ultimately need R LE revascularization once recovers Discharge Planning likely early next week Bernardo Avila MD Jan 31, 2017 06:55
[2017-01-31 07:27] LABS: APTT (PATIENT) 42.6 SEC (24.3-30.1)
[2017-01-31 07:36] LABS: BICARBONATE 31.7 MEQ/L (21.0-32.0); POTASSIUM 3.7 MEQ/L (3.5-5.1)
[2017-01-31] MEDS: DOCUSATE SODIUM 100 MG CAP PO SCH ×2 (08:28→20:24)
[2017-01-31] MEDS: FAMOTIDINE 20 MG TAB PO SCH ×2 (08:29→20:24)
[2017-01-31] MEDS: ASPIRIN 81 MG CHEW TAB PO SCH (08:29)
[2017-01-31] MEDS: METOPROLOL TARTRATE 25 MG TAB PO SCH ×2 (08:29→20:24)
[2017-01-31] MEDS: NICOTINE 14 MG/24 HR PATCH T-DERMAL SCH (08:30)
[2017-01-31] MEDS: REMOVE OLD PATCH T-DERMAL SCH (09:00)
--- NOTE | 2017-01-31 10:31 | MP ---
cc: ANUSHA AVILA MD DATE OF SURGERY 01/29/2017 PREOPERATIVE DIAGNOSIS Left lower sternal rest pain, peripheral atherosclerotic occlusive disease POSTOPERATIVE DIAGNOSIS Left lower sternal rest pain, peripheral atherosclerotic occlusive disease PROCEDURE 1. Left iliofemoral bypass with 8-mm Dacron 2. Left lower extremity angiogram 3. Left external iliac artery angioplasty and stent with a 7 x 40 Zilver. 4. Left common iliac and proximal external artery angioplasty with drug coated balloon. 5. Left femoral below-knee popliteal artery with cryopreserved vein, ATTENDING SURGEON Anusha Avila MD SPEECH THERAPIST TECHNICIAN SURGEON Donell Ramirez ANESTHESIA General INDICATIONS Ms. Mejia is a 61-year lady who has severe peripheral occlusive disease. She underwent a groin reconstruction and iliac stent and presents with recurrent rest pain. Preoperative CT scan suggested she had inflow and outflow disease. There was no prior catheter based imaging available for my review to determine suitability of a distal target so an on table angiogram was performed. DESCRIPTION OF PROCEDURE Informed consent was obtained from the patient. She was taken to the operating room and placed supine on the operating table. An appropriate time-out was taken to ensure the patient's identity, operative site and planned procedure. The administration of a gram of Ancef was initiated prior to the skin incision and was redosed four hours after the initial dose per pharmacologic principals. Everyone in the room agreed with the time-out and we proceeded. She was prepped from her nipples to her toes. An incision was made in the left groin and carried down through the subcutaneous tissues with electrocautery down to the common femoral artery. The common femoral artery was dissected free. The previous patch was identified and there was dense scar tissue proximally and distally. We dissected up to the external iliac artery and several centimeters up into this up to the area where we could feel the prior external iliac artery stent. We then dissected down to the common femoral artery and the femoral bifurcation and the two branches of the profunda were dissected free. The SFA was transected as it was known to be occluded. It was tied off distally. A 21 gauge micropuncture needle was used to access the common femoral artery. This was changed using Seldinger technique for the micropuncture sheath and we navigated this up to the patent external iliac artery and a left lower fib angiogram was obtained. The angiogram showed the patient had a patent below-knee popliteal artery and this appeared suitable for a target for a distal bypass. The micropuncture sheath was removed and an arteriotomy was closed with 5-0 Prolene suture. An incision was made below the knee, carried down through the subcutaneous tissue with electrocautery. The muscle was retracted posteriorly and the below-knee popliteal artery was identified and encircled with a Vesseloop. A tunnel was then created between the two incisions. At this point, the patient was systemically heparinized and throughout the remainder of the case, the ACT was kept greater than 250. After adequate time for the heparin to circulate, proximal and distal control of the external iliac artery and both branches of the profunda were obtained with profunda clamps and a longitudinal arteriotomy was made with an 11 blade up into the external iliac artery. The artery was then transected completely, endarterectomized in the external iliac artery and spatulated. The whole common femoral artery was resected and the proximal aspect of the larger branch of profunda was incised longitudinally on the anterior surface, spatulated and endarterectomized without difficulty. An 8-mm Dacron was brought up onto the field, spatulated and sewn end-to-end proximally and distally with 5-0 and 6-0 Prolene suture respectively. At the conclusion, the clamps were released. There was a weak pulse in the graft, but the anastomoses were made hemostatic. A 21 gauge micropuncture needle was used to access the middle of the graft. This was exchanged using Seldinger's technique with a micropuncture sheath through which a 0.025 Glidewire was introduced and the micropuncture sheath was exchanged for a 4-Kittitian sheath and a Berenstein was placed over the glide and the Berenstein glide was then navigated into the aorta and the glide was exchanged for a Stork wire. An aortogram was obtained. This showed the patient had an in-stent stenosis of the common external artery and a stenosis of the distal external artery immediately proximal to the origin of the iliofemoral bypass. The entire iliac stent system including common and external were angioplastied with a 6 mm drug coated balloon and the distal aspect was stented with a 7 mm self-expanding stent that was postdilated to 6 mm. At this point, there was excellent pulse in the graft. The wire, catheter and sheath were removed and the graftotomy was oversewn with 5-0 Prolene suture. The cryopreserved conduit was brought up on the field, prepped in the standard manner. Proximal and distal control of the iliofemoral Dacron graft was obtained. The graftotomy was then reopened and extended longitudinally. The vein was spatulated and sewn end-to-side with running 5-0 Prolene suture. At the completion, it was flushed and noted to be hemostatic. There was a nice pulse in the graft. The graft was marked for orientation, clamped and tunneled through the tunneler. Proximal and distal control of the below knee popliteal artery was obtained with profunda clamps and a longitudinal arteriotomy was made with an 11 blade and extended with [place] scissors. The vein was cut to an appropriate length, spatulated and sewn end-to-side with running 6-0 Prolene sutures. At the conclusion, it was flushed, noted to be hemostatic. There was a nice Doppler signal in the foot and the wounds were irrigated, made hemostatic and closed with 2-0 Polysorb, 3-0 Polysorb and 4-0 Monocryl. The sponge and needle counts were correct at the end of the case. I was present and scrubbed for the entire procedure. MD KOURTNEY Mcintyre/SHANTE /3:07 PM /10:08 AM CARINA
[2017-01-31] MEDS: ENOXAPARIN SODIUM 60 MG/0.6 ML SYRINGE SQ SCH ×2 (11:03→20:25)
[2017-01-31] MEDS: LACTATED RINGER'S 1000 ML INJ 1,000 ML IV SCH (12:38)
[2017-01-31] MEDS: WARFARIN SOD 5 MG TAB PO SCH (15:39)
[2017-01-31] MEDS: AMITRIPTYLINE HCL 50 MG TAB PO SCH (20:24)
[2017-01-31] MEDS: ATORVASTATIN 40 MG TAB PO SCH (20:24)
[2017-02-01] VITALS (22 sets, daily range): BP systolic 137–161; BP diastolic 73–88; PULSE 74–96; RESP 18; TEMP 98.4–99.5; O2SAT 96–100
[2017-02-01] MEDS: DOCUSATE SODIUM 100 MG CAP PO SCH ×2 (08:33→21:38)
[2017-02-01] MEDS: NICOTINE 14 MG/24 HR PATCH T-DERMAL SCH (08:34)
[2017-02-01] MEDS: METOPROLOL TARTRATE 25 MG TAB PO SCH ×2 (08:34→21:38)
[2017-02-01] MEDS: FAMOTIDINE 20 MG TAB PO SCH ×2 (08:34→21:37)
[2017-02-01] MEDS: ASPIRIN 81 MG CHEW TAB PO SCH (08:35)
[2017-02-01] MEDS: ENOXAPARIN SODIUM 60 MG/0.6 ML SYRINGE SQ SCH ×2 (08:38→21:37)
--- NOTE | 2017-02-01 08:52 | PD.VS.PN ---
Subjective Procedure(s): L ilioprofunda bypass, iliac SALES AND MARKETING DIRECTOR/stent, L fem-BK pop Subjective/Hospital Course Some paresthesias left foot. Working with Nurse to get OOB today. Objective Vitals/I&O Date Time Temp Pulse Resp B/P Pulse Ox O2 Delivery O2 Flow Rate FiO2 02/01/17 06:00 84 02/01/17 05:00 82 02/01/17 04:00 88 02/01/17 03:15 98.4 84 18 148/80 96 02/01/17 03:00 88 02/01/17 02:00 88 02/01/17 01:00 86 02/01/17 00:00 80 01/31/17 23:03 99.1 88 18 146/75 96 01/31/17 23:00 89 01/31/17 22:00 88 01/31/17 21:00 72 01/31/17 20:00 98 01/31/17 19:42 99.1 94 18 152/77 96 01/31/17 19:00 96 01/31/17 18:00 88 01/31/17 17:00 84 01/31/17 16:00 84 01/31/17 15:00 83 01/31/17 15:00 100.3 91 16 146/78 97 01/31/17 14:00 84 01/31/17 13:00 72 01/31/17 12:00 76 01/31/17 11:15 70 01/31/17 11:03 98.4 78 19 127/68 95 01/31/17 10:00 90 01/31/17 09:00 92 02/01/17 02/01/17 02/01/17 07:00 15:00 23:00 Intake Total 480 ml Output Total 1050 ml Balance -570 ml Exam: strong signal left DP with warm foot. Left leg incision intact. Groin dressing in place. Assessment and Plan Plan Patient still complains of paresthesias. Foot is well perfused. reperfusion symptoms correlate. Start PT as tolerated and progress anticoagulation. Discharge planning. Discharge Planning likely early next week Rupesh Johnson DO Feb 01, 2017 08:52
[2017-02-01] MEDS: WARFARIN SOD 5 MG TAB PO SCH (17:46)
[2017-02-01] MEDS ORDERED: MAGNESIUM HYDROXIDE SUSP 30 ML CUP PO ONE (21:30)
[2017-02-01] MEDS: ATORVASTATIN 40 MG TAB PO SCH (21:37)
[2017-02-01] MEDS: AMITRIPTYLINE HCL 50 MG TAB PO SCH (21:38)
[2017-02-02] VITALS (18 sets, daily range): BP systolic 146–159; BP diastolic 81–88; PULSE 78–108; RESP 16–20; TEMP 98.5–99.5; O2SAT 95–100
[2017-02-02 05:28] LABS: HEMATOCRIT 27.5 % (35.0-46.0); MEAN CELL VOLUME 79.5 FL (80.0-100.0); MEAN CORPUSCULAR HEMOGLOBIN 25.2 PG (27.0-34.0); MEAN CORPUSCULAR HGB CONC 31.7 % (32.0-36.0); PLATELET COUNT 123 TH/MM3 (150-450); RED BLOOD COUNT 3.46 MIL/MM3 (4.00-5.30); RED CELL DISTRIBUTION WIDTH 19.3 % (11.6-17.2); REVIEW FLAG FINAL; WHITE BLOOD COUNT 5.7 TH/MM3 (4.0-11.0)
[2017-02-02 05:40] LABS: INTERNATIONAL NORMALIZED RATIO 1.8 RATIO; PROTHROMBIN TIME - PATIENT 20.7 SEC (9.8-11.6)
[2017-02-02] MEDS: MAGNESIUM HYDROXIDE SUSP 30 ML CUP PO SCH (09:00)
[2017-02-02] MEDS: REMOVE OLD PATCH T-DERMAL SCH (09:00)
[2017-02-02] MEDS: ASPIRIN 81 MG CHEW TAB PO SCH (09:42)
[2017-02-02] MEDS: DOCUSATE SODIUM 100 MG CAP PO SCH ×2 (09:43→19:57)
[2017-02-02] MEDS: FAMOTIDINE 20 MG TAB PO SCH ×2 (09:43→19:57)
[2017-02-02] MEDS: METOPROLOL TARTRATE 25 MG TAB PO SCH ×2 (09:43→19:58)
[2017-02-02] MEDS: NICOTINE 14 MG/24 HR PATCH T-DERMAL SCH (09:44)
[2017-02-02] MEDS: ENOXAPARIN SODIUM 60 MG/0.6 ML SYRINGE SQ SCH ×2 (09:45→19:58)
--- NOTE | 2017-02-02 11:53 | PD.VS.PN ---
Subjective Procedure(s): L ilioprofunda bypass, iliac LAUNDRY AIDE/stent, L fem-BK pop Subjective/Hospital Course Walked and had bowel movement today. Objective Vitals/I&O Date Time Temp Pulse Resp B/P Pulse Ox O2 Delivery O2 Flow Rate FiO2 02/02/17 08:30 89 02/02/17 08:30 98.5 91 16 146/81 98 02/02/17 03:50 99.1 83 18 154/81 96 02/02/17 03:00 81 02/01/17 23:30 98.4 81 18 153/82 96 02/01/17 23:00 81 02/01/17 19:45 99.2 84 18 161/88 96 02/01/17 19:00 96 02/01/17 18:00 90 02/01/17 17:00 92 02/01/17 16:00 80 02/01/17 15:00 99.5 87 18 137/75 97 02/01/17 15:00 74 02/01/17 14:00 74 02/01/17 13:00 80 02/01/17 12:00 76 02/02/17 02/02/17 02/02/17 07:00 15:00 23:00 Intake Total 480 ml Output Total 600 ml Balance -120 ml Pulses: foot is warm.. Incisions: left groin soft and left leg incision is clean and intact. Laboratory Laboratory Tests Test 02/02/17 04:58 White Blood Count 5.7 Red Blood Count 3.46 Hemoglobin 8.7 Hematocrit 27.5 Mean Corpuscular Volume 79.5 Mean Corpuscular Hemoglobin 25.2 Mean Corpuscular Hemoglobin 31.7 Concent Red Cell Distribution Width 19.3 Platelet Count 123 Mean Platelet Volume 10.4 Prothrombin Time 20.7 Prothromb Time International 1.8 Ratio Assessment and Plan Plan Patient with well perfused leg/foot. Ambulating with less discomfort. Overall improving. Discharge planning. Discharge Planning likely early next week Rupesh Johnson DO Feb 02, 2017 11:53
[2017-02-02] MEDS: WARFARIN SOD 5 MG TAB PO SCH (15:45)
[2017-02-02] MEDS: AMITRIPTYLINE HCL 50 MG TAB PO SCH (19:58)
[2017-02-02] MEDS: ATORVASTATIN 40 MG TAB PO SCH (20:04)
[2017-02-03] VITALS (17 sets, daily range): BP systolic 126–145; BP diastolic 68–83; PULSE 72–97; RESP 16–18; TEMP 97.8–99.4; O2SAT 96–99
[2017-02-03] MEDS: MAGNESIUM HYDROXIDE SUSP 30 ML CUP PO SCH (09:00)
[2017-02-03] MEDS: REMOVE OLD PATCH T-DERMAL SCH (09:00)
[2017-02-03] MEDS: NICOTINE 14 MG/24 HR PATCH T-DERMAL SCH (09:02)
[2017-02-03] MEDS: DOCUSATE SODIUM 100 MG CAP PO SCH (09:02)
[2017-02-03] MEDS: FAMOTIDINE 20 MG TAB PO SCH (09:02)
[2017-02-03] MEDS: ASPIRIN 81 MG CHEW TAB PO SCH (09:02)
[2017-02-03] MEDS: METOPROLOL TARTRATE 25 MG TAB PO SCH (09:03)
[2017-02-03] MEDS: ENOXAPARIN SODIUM 60 MG/0.6 ML SYRINGE SQ SCH (09:03)
--- NOTE | 2017-02-03 09:15 | PD.VS.PN ---
Subjective POD #: 5 Procedure(s): L ilioprofunda bypass, iliac MECHANICAL MANUFACTURING ENGINEER/stent, L fem-BK pop Subjective/Hospital Course Pt in bed this am alert in nad Pt reported she is ready to go home Wound vac removed (Left groin) Objective Vitals/I&O Date Time Temp Pulse Resp B/P Pulse Ox O2 Delivery O2 Flow Rate FiO2 02/03/17 08:10 99.1 86 16 126/68 96 02/03/17 07:34 86 02/03/17 06:00 78 02/03/17 05:00 80 02/03/17 04:00 87 02/03/17 04:00 99.4 94 18 138/77 97 02/03/17 03:00 84 02/03/17 02:00 82 02/03/17 01:00 80 02/03/17 00:30 82 02/03/17 00:30 99.3 95 18 141/77 98 02/02/17 23:00 80 02/02/17 22:00 92 02/02/17 21:00 98.8 97 20 159/87 100 02/02/17 21:00 94 02/02/17 20:00 96 02/02/17 19:00 92 02/02/17 18:00 96 02/02/17 17:00 102 02/02/17 16:00 82 02/02/17 15:30 99.5 108 16 154/88 98 02/02/17 15:30 83 02/02/17 14:00 80 02/02/17 13:00 96 02/02/17 11:30 81 02/02/17 11:30 99.2 85 16 151/81 95 02/02/17 11:00 78 02/02/17 10:00 90 02/03/17 02/03/17 02/03/17 07:00 15:00 23:00 Intake Total 480 ml Output Total 850 ml Balance -370 ml Exam: GENERAL: A&OX3, NAD SKIN: Warm and dry/ Left groin incision intact w/o R/D/S CARDIOVASCULAR: + S1,S2 RESPIRATORY: BS CTA GASTROINTESTINAL: Abdomen S/NT MUSCULOSKELETAL: No cyanosis, or mild left foot 1+ pitting edema Bilat LE warm with motor intact triphasic L DP heard via Doppler Assessment and Plan Plan Plan D/C today Patient with well perfused leg/foot. Pt Ambulating w/ walker w/o discomfort Discharge Planning today Lizett Joshua Feb 03, 2017 09:15
[2017-02-03] MEDS ORDERED: COUM5TAB PO (09:24)
[2017-02-03] MEDS ORDERED: AMIT50TA3 PO (09:24)
--- NOTE | 2017-02-03 09:36 | PD.VS.DC ---
Discharge Summary Admission Date: Jan 29, 2017 at 05:58 Discharge Date: Feb 03, 2017 Admission Diagnosis: (1) Peripheral arterial disease Discharge Diagnosis: (1) Peripheral arterial disease Status: Chronic Brief History from admission 61 yo female with PAD who previously underwent B groin reconstruction (RELIGIOUS ASSISTANT TEA) and iliac RECREATION ENGINEER/stent. Legs improved for a time but now have worsened. + Rest pain. no motor dysfunction and no tissue loss. Does have a h/o anemia of unknown etiology but rec'd 2U PRBC Fri as she occasionally does as outpatient and Hct 29 today. No symptoms of SOB or fatigue Procedure(s): L ilioprofunda bypass, iliac RECREATION ENGINEER/stent, L fem-BK pop Significant Findings Laboratory Tests Test 02/02/17 04:58 Red Blood Count 3.46 MIL/MM3 (4.00-5.30) Hemoglobin 8.7 GM/DL (11.6-15.3) Hematocrit 27.5 % (35.0-46.0) Mean Corpuscular Volume 79.5 FL (80.0-100.0) Mean Corpuscular Hemoglobin 25.2 PG (27.0-34.0) Mean Corpuscular Hemoglobin 31.7 % Concent (32.0-36.0) Red Cell Distribution Width 19.3 % (11.6-17.2) Platelet Count 123 TH/MM3 (150-450) Prothrombin Time 20.7 SEC (9.8-11.6) Hospital Course: 61 yo female with a PMH of PAD who previously underwent B groin reconstruction ( RELIGIOUS ASSISTANT TEA) and iliac RECREATION ENGINEER/stent. Legs improved for a time but now have worsened. Pt Prior to surgical intervention developed worsening Rest pain. Pt w/o motor dysfunction and no tissue loss Surgical Intervention done (without complications) Pt presents with improved symptoms Allergies Coded Allergies Type Severity Reaction Last Updated Verified No Known Allergies 08/21/16 No ///// 06:00 18:00 06:00 18:00 06:00 18:00 Intake Total 720 ml 1440 ml 480 ml 1440 ml 480 ml Output Total 650 ml 1050 ml 600 ml 400 ml 850 ml Balance 70 ml 390 ml -120 ml 1040 ml -370 ml Intake Oral 720 ml 1440 ml 480 ml 1440 ml 480 ml IV Total 0 ml 0 ml Output Urine Total 650 ml 1050 ml 600 ml 400 ml 850 ml # Voids 5 3 # Bowel Movements 0 0 1 Laboratory Tests Test 02/02/17 04:58 White Blood Count 5.7 TH/MM3 Red Blood Count 3.46 MIL/MM3 Hemoglobin 8.7 GM/DL Hematocrit 27.5 % Mean Corpuscular Volume 79.5 FL Mean Corpuscular Hemoglobin 25.2 PG Mean Corpuscular Hemoglobin 31.7 % Concent Red Cell Distribution Width 19.3 % Platelet Count 123 TH/MM3 Mean Platelet Volume 10.4 FL Prothrombin Time 20.7 SEC Prothromb Time International 1.8 RATIO Ratio Procedure Category Date Status Time (Hub Use Only)Inp Phy CONS 01/31/17 Transmitted Cons/Ref Magnesium Hydroxide MED 02/01/17 Complete Liq (Milk Of Magnesi 21:30 Magnesium Hydroxide MED 02/02/17 In Process Liq (Milk Of Magnesi 09:00 Attending Discharge DISCHARGE 02/03/17 Transmitted Order Vital Signs Date Time Temp Pulse Resp B/P Pulse Ox O2 Delivery O2 Flow Rate FiO2 02/03/17 08:10 99.1 86 16 126/68 96 02/03/17 07:34 86 02/03/17 06:00 78 02/03/17 05:00 80 02/03/17 04:00 87 02/03/17 04:00 99.4 94 18 138/77 97 02/03/17 03:00 84 02/03/17 02:00 82 02/03/17 01:00 80 02/03/17 00:30 82 02/03/17 00:30 99.3 95 18 141/77 98 02/02/17 23:00 80 02/02/17 22:00 92 02/02/17 21:00 98.8 97 20 159/87 100 02/02/17 21:00 94 02/02/17 20:00 96 02/02/17 19:00 92 02/02/17 18:00 96 02/02/17 17:00 102 02/02/17 16:00 82 02/02/17 15:30 99.5 108 16 154/88 98 1817 15:30 83 1817 14:00 80 1817 13:00 96 17 11:30 81 17 11:30 99.2 85 16 151/81 95 1817 11:00 78 17 10:00 90 1817 09:00 88 17 08:30 89 02/02/17 08:30 98.5 91 16 146/81 98 18 03:50 99.1 83 18 154/81 96 02/02/17 03:00 81 02/01/17 23:30 98.4 81 18 153/82 96 02/01/17 23:00 81 02/01/17 19:45 99.2 84 18 161/88 96 02/01/17 19:00 96 02/01/17 18:00 90 02/01/17 17:00 92 02/01/17 16:00 80 02/01/17 15:00 99.5 87 18 137/75 97 02/01/17 15:00 74 02/01/17 14:00 74 02/01/17 13:00 80 02/01/17 12:00 76 02/01/17 11:00 99.2 80 18 152/75 100 02/01/17 11:00 93 02/01/17 09:00 84 02/01/17 08:00 88 02/01/17 08:00 99.2 90 18 149/73 96 02/01/17 08:00 93 02/01/17 06:00 84 02/01/17 05:00 82 02/01/17 04:00 88 02/01/17 03:15 98.4 84 18 148/80 96 02/01/17 03:00 88 02/01/17 02:00 88 02/01/17 01:00 86 02/01/17 00:00 80 01/31/17 23:03 99.1 88 18 146/75 96 01/31/17 23:00 89 01/31/17 22:00 88 01/31/17 21:00 72 01/31/17 20:00 98 01/31/17 19:42 99.1 94 18 152/77 96 01/31/17 19:00 96 01/31/17 18:00 88 01/31/17 17:00 84 01/31/17 16:00 84 01/31/17 15:00 83 01/31/17 15:00 100.3 91 16 146/78 97 01/31/17 14:00 84 01/31/17 13:00 72 01/31/17 12:00 76 01/31/17 11:15 70 01/31/17 11:03 98.4 78 19 127/68 95 01/31/17 10:00 90 Discharge Condition: Good Discharge Disposition: Discharge Home Discharge Instructions: F/U in 2W with an LIYAH in our OPC at scheduled appointment time 02/24/17 at 1000 Pt instructed to Follow up with PCP for Coumadin therapy with a goal INR of 2 Leave Left groin incision open to air Do not apply any creams or ointments to incision site May Shower NO TUB baths No swimming in the ocean or pool until incision is healed Lizett DIMAS [facility] Any questions or concerns: Call [facility] Surgery at [facility] [phone] Lizett Joshua Feb 03, 2017 09:36
--- NOTE | 2017-02-03 09:48 | HHI.FF ---
Face to Face Verification Diagnosis: (1) Peripheral arterial disease (2) Iliac artery stenosis, bilateral Physical Therapy Order: Evaluate and Treat, Improve ambulation Instructions: PT 3/Week for 3 weeks for improved ambulation post surgical intervention Home Health Nursing Order: Medical education Signs/symptoms of disease process I have seen patient Ivon Mejia on 02/03/17. My clinical findings support the need for the requested home health care services because: She is post op Left groin reconstruction and will need home health to aid in optimal healing Ltd mobility - disease progression High risk of falls I certify that my clinical findings support that this patient is homebound because: she has done well post op and will need to continue therapy at home for optimal healing Post-op weakness Unsteady gait/balance Lizett Joshua Feb 03, 2017 09:48
== END 2017-02-03 12:52 | disposition home or self-care (01) | DRG 254 ==
LOC: HSDI 01-29 05:58 → HCVR 01-29 12:26 → HCIN 01-30 13:58
PROVIDERS: ADMIT Surgery; ATTEND Surgery
PROC: B41G1ZZ Fluoroscopy of Left Lower Extremity Arteries using Low Osmolar Contrast (ICD-10-PCS; 2017-01-29)
PROC: 047J34Z Dilation of Left External Iliac Artery with Drug-eluting Intraluminal Device, Percutaneous Approach (ICD-10-PCS; principal; 2017-01-29 07:31)
DX: I73.9 Peripheral vascular disease, unspecified (principal); I10 Essential (primary) hypertension; D64.9 Anemia, unspecified; I25.10 Atherosclerotic heart disease of native coronary artery without angina pectoris; F17.200 Nicotine dependence, unspecified, uncomplicated
CPT/HCPCS: 36430; 75710; 80048; 85025; 85027; 85610; 85730; 86850; 86900; 86901; 86920; 94150; C1725; C1769; C1876; J0131; J0690; J1644; J1650; J2270; J2370; J2405; J2720; J3010; J7050; J7120; J7121; L8670; P9016; Q9967

== ENCOUNTER → 2017-01-24 | Outpatient (CLI) | payer OTHER ==
[~2017-01-24] MED LIST changes: -GINK120T2 PO; -PANT40TA3 PO
[2017-01-24 10:15] LABS: MEAN CORPUSCULAR HEMOGLOBIN 23.4 PG (27.0-34.0); PLATELET COUNT 218 TH/MM3 (150-450); RED BLOOD COUNT 2.18 MIL/MM3 (4.00-5.30); RED CELL DISTRIBUTION WIDTH 21.6 % (11.6-17.2)
[2017-01-24 10:20] LABS: REVIEW FLAG FINAL
[2017-01-24 10:38] LABS: BICARBONATE 31.4 MEQ/L (21.0-32.0); POTASSIUM 3.5 MEQ/L (3.5-5.1)
[2017-01-24 10:43] LABS: BLOOD, URINE NEG (NEG); COMMENT (UR) CULT NOT INDICATED; CULTURE IF INDICATED CULT NOT INDICATED; GLUCOSE,URINE NEG (NEG); KETONE, URINE NEG (NEG); MUCUS URINE FEW /lpf (OCC); NITRITE,URINE NEG (NEG); PH, URINE 6.5 (5.0-8.5); SQUAMOUS EPITHELIAL CELL URINE <1 /hpf (0-5); URINE COLOR YELLOW (YELLW/STRAW)
== END ==
LOC: CPRE 09:30
PROVIDERS: ATTEND Surgery
DX: Z01.812 Encounter for preprocedural laboratory examination (principal); I73.9 Peripheral vascular disease, unspecified
CPT/HCPCS: 36415; 80048; 81001; 85027; 85610

== ENCOUNTER → 2017-04-10 | Outpatient (CLI) | payer OTHER ==
[~2017-04-10] MED LIST changes: +AMIT50TA3 PO; +AMIT75TA2 PO; -BUPR150CR PO; -CILO100T PO; +CIPR-9 PO; +COUM5TAB PO; +FOLI800T PO; +GABA300C5 PO; -GETGO ROLLING W1 MI1; +IPRA17I INH; +METO25TA3 PO; +PANT40TA3 PO; +PERC5TAB12 PO; -PLAV75TA29 PO; -SIMV10TA PO; +SLOW50TA PO; -VITA500T4 PO
[2017-04-10 12:00] LABS: BACTERIA, URINE RARE /hpf; BLOOD, URINE NEG (NEG); COMMENT (UR) CULT NOT INDICATED; CULTURE IF INDICATED CULT NOT INDICATED; GLUCOSE,URINE NEG (NEG); KETONE, URINE NEG (NEG); MUCUS URINE FEW /lpf (OCC); NITRITE,URINE NEG (NEG); SQUAMOUS EPITHELIAL CELL URINE 1 /hpf (0-5); URINE COLOR LIGHT-YELLOW (YELLW/STRAW)
[2017-04-10 12:04] LABS: AUTOMATED NEUTROPHIL # 4.1 TH/MM3 (1.8-7.7); BASOPHIL % 0.6 % (0.0-2.0); EOSINOPHIL # 0.2 TH/MM3 (0-0.4); EOSINOPHIL % 3.7 % (0.0-4.0); HEMATOCRIT 33.1 % (35.0-46.0); HEMO FLAGS DIFF FINAL; LYMPH % 19.9 % (9.0-44.0); LYMPHOCYTE # 1.2 TH/MM3 (1.0-4.8); MEAN CELL VOLUME 89.1 FL (80.0-100.0); MEAN CORPUSCULAR HGB CONC 32.6 % (32.0-36.0); MONO % 6.6 % (0.0-8.0); NEUT % 69.2 % (16.0-70.0); PLATELET COUNT 193 TH/MM3 (150-450); RED BLOOD COUNT 3.71 MIL/MM3 (4.00-5.30); RED CELL DISTRIBUTION WIDTH 15.1 % (11.6-17.2); WHITE BLOOD COUNT 5.9 TH/MM3 (4.0-11.0)
[2017-04-10 12:12] LABS: INTERNATIONAL NORMALIZED RATIO 0.9 RATIO; PROTHROMBIN TIME - PATIENT 10.3 SEC (9.8-11.6)
[2017-04-10 12:27] LABS: BICARBONATE 30.6 MEQ/L (21.0-32.0); POTASSIUM 4.3 MEQ/L (3.5-5.1)
--- NOTE | 2017-04-10 12:52 | RADRPT ---
EXAM DATE/TIME: 04/10/2017 12:07 [place] COMPARISON: CHEST PA & LAT, August 21, 2016, 11:42. INDICATIONS : Evaluate for pneumonia, pneumothorax, or communicable disease. pre-op. MEDICAL HISTORY : None. SURGICAL HISTORY : None. ENCOUNTER: Initial ACUITY: 1 day PAIN SCORE: 0/10 LOCATION: Bilateral chest FINDINGS: PA and lateral views of the chest demonstrate the lungs to be symmetrically aerated without evidence of mass, infiltrate or effusion. The cardiomediastinal contours are unremarkable. Osseous structure s are intact. CONCLUSION: 1. No acute cardiopulmonary disease. Nadeem Reed MD on April 10, 2017 at 12:46 Board Certified Radiologist. This report was verified electronically.
--- NOTE | 2017-04-11 11:53 | EKG ---
Date Performed: 04/10/2017 Time Performed: 11:30:51 PTAGE: 61 years EKG: Sinus rhythm NORMAL ECG Compared to prior tracing no significant change PREVIOUS TRACING 08/21/2016 11.03.27 DOCTOR: Ren Roach Interpretating Date/Time 04/11/2017 11:47:20
== END ==
LOC: CPRE 11:05
PROVIDERS: ATTEND Surgery
DX: Z01.810 Encounter for preprocedural cardiovascular examination (principal); Z01.811 Encounter for preprocedural respiratory examination; Z01.812 Encounter for preprocedural laboratory examination
CPT/HCPCS: 36415; 71020; 80048; 81001; 85025; 85610; 85730; 93005

== ENCOUNTER 2017-04-14 07:53 | Inpatient (IN) | payer OTHER ==
[~2017-04-14] VITALS: Ht 149.9 cm; Wt 57.0 kg
[~2017-04-14 07:53] MED LIST changes: -CIPR-9 PO; -PERC5TAB12 PO
[2017-04-14] MEDS: CHLORHEXIDINE GLUCONATE 2 % 1 PACK (2 CLOTHS) TOPICAL PRN (08:05)
[2017-04-14] MEDS ORDERED: INSULIN HUMAN REGULAR 1,000 UNITS/10 ML VIAL SQ PRN (09:00)
[2017-04-14] MEDS ORDERED: LACTATED RINGER'S 1000 ML IV PRN (09:00)
[2017-04-14] MEDS ORDERED: SODIUM CHLORID 0.9% 500 ML IV PRN (09:00)
[2017-04-14] MEDS ORDERED: METOPROLOL TARTRATE 25 MG TAB PO PRN (09:00)
[2017-04-14] MEDS ORDERED: POVIDONE IODINE 5% (ANTISEPSIS KIT) 4 APPLICATIONS EACH NARE PRN (09:00)
[2017-04-14] MEDS ORDERED: ceFAZolin 2 GM PREMIX 0 ML ONE (09:56)
[2017-04-14] MEDS ORDERED: THROMBIN (TOPICAL) 20,000 UNIT SPRAY KIT ONE (09:56)
[2017-04-14] MEDS ORDERED: VANCOMYCIN HCL 1000 MG VIAL ONE (09:56)
[2017-04-14] MEDS ORDERED: HEPARIN SODIUM - IV 10,000 UNITS/10 ML VIAL ONE (09:56)
[2017-04-14] MEDS ORDERED: BUPIVACAINE HCL PF 0.5% 30 ML VIAL ONE (09:56)
[2017-04-14] MEDS ORDERED: PROTAMINE SULFATE 50 MG/5 ML VIAL ONE (09:57)
--- NOTE | 2017-04-14 09:58 | HHI.HP ---
History of Present Illness Chief Complaint: R LE rest pain, PAD History of Present Illness 61 yo female well known to me with h/o B MANDREL CLEANER 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 Presents for R groin reconstruction and endovascular and open revascularization of R leg. Past/Family/Social History Past Medical History PAD HTN XOL anemia Past Surgical History 1. B MANDREL CLEANER TEA w/ iliac stents 2. L ilioprofunda bypass and distal Social History smoker Family History NC Home Medications Reported Medications Ipratropium HFA 12.9 GM Inh (Atrovent HFA 12.9 GM Inh) 17 Mcg/Act Aer, 2 PUFF INH Q6HR Y for SHORTNESS OF BREATH, #1 INHALER 0 Refills 04/10/17 Ferrous Sulfate ER (Slow Release Iron ER) 50 Mg Tab, 65 MG PO DAILY for Nutritional Supplement, TAB 0 Refills 04/10/17 Folic Acid (Folic Acid) 800 Mcg Tab, 800 MCG PO DAILY for Nutritional Supplement , TAB 0 Refills 04/10/17 Gabapentin (Gabapentin) 300 Mg Cap, 300 MG PO TID, #90 CAP 0 Refills 04/10/17 Pantoprazole (Pantoprazole) 40 Mg Tab, 40 MG PO DAILY for Reflux, #30 TAB 0 Refills 04/10/17 Losartan (Losartan) 25 Mg Tab, 25 MG PO HS for Blood Pressure Management, #30 TAB 0 Refills 04/10/17 Metoprolol Tartrate (Metoprolol Tartrate) 25 Mg Tab, 25 MG PO DAILY, #30 TAB 0 Refills 04/10/17 Amitriptyline (Amitriptyline) 75 Mg Tab, 75 MG PO HS, TAB 04/10/17 Discontinued Reported Medications Ferrous Sulfate ER (Slow Release Iron ER) 50 Mg Tab, 65 MG PO DAILY for Nutritional Supplement, TAB 0 Refills 01/24/17 Losartan (Losartan) 25 Mg Tab, 12.5 MG PO DAILY for Blood Pressure Management, # 15 TAB 0 Refills 08/21/16 Discontinued Scripts Warfarin (Coumadin) 5 Mg Tab, 5 MG PO DAILY for pad for 30 Days, TAB 2 Refills Prov:Lizett Joshua 02/03/17 Amitriptyline (Amitriptyline) 50 Mg Tab, 50 MG PO HS for PAD, #30 TAB 0 Refills Prov:Lizett Joshua MANAGER CARDIOVASCULAR 02/03/17 Coded Allergies: No Known Allergies (Unverified , 04/14/17) Review of Systems Cardiovascular: DENIES: Chest pain, Palpitations, Syncope, Dyspnea on Exertion , PND, Lower Extremity Edema, Orthopnea, Claudication Gastrointestinal: COMPLAINS OF: Black stools Physical Exam Vitals/I&O Date Time Temp Pulse Resp B/P (MAP) Pulse Ox O2 Delivery O2 Flow Rate FiO2 04/14/17 08:20 98.6 70 16 156/98 (117) 98 Neuro: no distress, ready for surgery, no focal deficits HEENT: NC/AT; anicteric sclera Neck: no JVD Heart: reg rate, no M Lungs: clear B Abdomen: NT Vascular: nonpalpable R pedal pulse Extremities: no tissue loss R groin incision pending will make in OR; CTA reviewed Caprini VTE Risk Assessment Caprini VTE Risk Assessment: Mod/High Risk (score >= 2) Caprini Risk Assessment Model Point Value = 1 Point Value = 2 Point Value = 3 Point Value = 5 Age 41-60 Minor surgery BMI > 25 kg/m2 Swollen legs Varicose veins or History of unexplained or recurrent spontaneous Oral contraceptives or hormone replacement Sepsis (< 1 month) Serious lung disease, including pneumonia (< 1 month) Abnormal pulmonary function Acute myocardial infarction Congestive heart failure (< 1 month) History of inflammatory bowel disease Medical patient at bed rest Age 61-74 Arthroscopic surgery Major open surgery (> 45 min) Laparoscopic surgery (> 45 min) Malignancy Confined to bed (> 72 hours) Immobilizing plaster cast Central venous access Age >= 75 History of VTE Family history of VTE Factor V Leiden Prothrombin [id number] Lupus anticoagulant Anticardiolipin antibodies Elevated serum homocysteine Heparin-induced thrombocytopenia Other congenital or acquired thrombophilia Stroke (< 1 month) Elective arthroplasty Hip, pelvis, or leg fracture Acute spinal cord injury (< 1 month) Prophylaxis Regimen Total Risk Factor Score Risk Level Prophylaxis Regimen 0-1 Low Early ambulation 2 Moderate Order ONE of the following: *Sequential Compression Device (SCD) *Heparin 5000 units SQ BID 3-4 Higher Order ONE of the following medications: *Heparin 5000 units SQ TID *Enoxaparin/Lovenox 40 mg SQ daily (WT < 150 kg, CrCl > 30 mL/min) *Enoxaparin/Lovenox 30 mg SQ daily (WT < 150 kg, CrCl > 10-29 mL/min) *Enoxaparin/Lovenox 30 mg SQ BID (WT < 150 kg, CrCl > 30 mL/min) AND/OR *Sequential Compression Device (SCD) 5 or more Highest Order ONE of the following medications: *Heparin 5000 units SQ TID (Preferred with Epidurals) *Enoxaparin/Lovenox 40 mg SQ daily (WT < 150 kg, CrCl > 30 mL/min) *Enoxaparin/Lovenox 30 mg SQ daily (WT < 150 kg, CrCl > 10-29 mL/min) *Enoxaparin/Lovenox 30 mg SQ BID (WT < 150 kg, CrCl > 30 mL/min) AND *Sequential Compression Device (SCD) Assessment and Plan Plan To OR for R groin reconstruction, angiogram with intervention and distal bypass Bernardo Avila MD Apr 14, 2017 09:58
[2017-04-14] MEDS ORDERED: FAMOTIDINE 20 MG/2 ML VIAL ONE (10:16)
[2017-04-14] MEDS ORDERED: MIDAZOLAM HCL 2 MG/2 ML VIAL ONE (10:16)
[2017-04-14] MEDS ORDERED: PHENYLEPHRINE HCL 10 MG/ML VIAL IV ONE (10:18)
[2017-04-14] MEDS ORDERED: NORMOSOL R INJ 2,000 ML IV ONE (10:18)
[2017-04-14] MEDS ORDERED: PROPOFOL 200 MG/20 ML AMP IV ONE (10:18)
[2017-04-14] MEDS ORDERED: LACTATED RINGER'S 1000 ML INJ 1,000 ML IV ONE (10:18)
[2017-04-14] MEDS ORDERED: SODIUM CHLORID 0.9% 500 ML INJ 500 ML IV ONE (10:18)
[2017-04-14] MEDS ORDERED: PHENYLEPH/NS 1000 MCG/10 ML SYR IV ONE (10:18)
[2017-04-14] MEDS ORDERED: ePHEDrine/NS 25 MG/5 ML SYR IV ONE (10:18)
[2017-04-14] MEDS ORDERED: ONDANSETRON HCL 4 MG/2 ML VIAL IV PUSH ONE (10:18)
[2017-04-14] MEDS ORDERED: ceFAZolin INJ 1,000 MG VIAL ONE (10:35)
[2017-04-14] MEDS ORDERED: IOHEXOL 300 INJ 50 ML IV ONE (13:34)
--- NOTE | 2017-04-14 14:29 | HHI.PR ---
Immediate Post Op Note Procedure Date: Apr 14, 2017 Pre Op Diagnosis: PAD, R LE rest pain Post Op Diagnosis: PAD, R LE rest pain Surgeon: Bernardo Avila Bill Hiker(s): Candace Kessler Procedure: 1. R EIA to PFA bypass (8mm Dacron) 2. R FORESTRY CONSULTANT to SFA bypass (8mm Dacron) 3. R EIA BRICK MOLDER HAND/stent (7x80 Zilver PTX) 4. R LE angiogram Findings: occluded FORESTRY CONSULTANT and EIA stent, reconstructed Additional Information: strong DP at conclusion of case Complications: none apparent Specimen(s) removed: none for pathology Estimated blood loss: 150mL Anesthesia: General Drains: None Fluids: 2400mL x'oid; 555mL UOP Patient to: PACU Patient Condition: Good Implant/Devices: SEE IMPLANT LOG (if applicable) Date/Time of Procedure: SEE SURGICAL CARE RECORD Bernardo Avila MD Apr 14, 2017 14:29
[2017-04-14] MEDS ORDERED: MORPHINE SULFATE 4 MG/ML INJ IV PRN (14:30)
[2017-04-14] MEDS ORDERED: HYDROmorphone HCL 2 MG TAB PO PRN (14:30)
[2017-04-14] MEDS ORDERED: IPRATROPIUM BROMIDE 17 MCG/ACT 12.9 GM INHALER INH PRN (14:30)
[2017-04-14] MEDS ORDERED: DO NOT ADM ANY ANTICOAGULANT DRUGS PRN (15:00)
[2017-04-14] MEDS ORDERED: LACTATED RINGER'S 1000 ML INJ 1,000 ML IV SCH (17:00)
[2017-04-14] MEDS ORDERED: *morphine SULFATE 8 MG/ML PERIprocedure ONLY ONE (17:13)
[2017-04-14] MEDS: GABAPENTIN 300 MG CAP PO SCH (18:00)
[2017-04-14 20:40] VITALS: BP 146/76; PULSE 93; PULSE 94; RESP 17; TEMP 98.8; O2SAT 96
[2017-04-14 21:00] VITALS: PULSE 98
[2017-04-14] MEDS: AMITRIPTYLINE HCL 75 MG TAB PO SCH (21:51)
[2017-04-14] MEDS: ATORVASTATIN 40 MG TAB PO SCH (21:51)
[2017-04-14] MEDS: DOCUSATE SODIUM 100 MG CAP PO SCH (21:51)
[2017-04-14 22:00] VITALS: PULSE 92
[2017-04-14 23:00] VITALS: PULSE 94
[2017-04-14 23:30] VITALS: BP 132/68; PULSE 102; RESP 18; TEMP 99.3; O2SAT 99
[2017-04-15] VITALS (30 sets, daily range): BP systolic 111–188; BP diastolic 65–80; PULSE 80–120; RESP 17–20; TEMP 99.4–103; O2SAT 92–97
[2017-04-15 06:53] LABS: HEMATOCRIT 25.7 % (35.0-46.0); MEAN CELL VOLUME 89.2 FL (80.0-100.0); MEAN CORPUSCULAR HEMOGLOBIN 29.8 PG (27.0-34.0); MEAN CORPUSCULAR HGB CONC 33.4 % (32.0-36.0); PLATELET COUNT 158 TH/MM3 (150-450); RED BLOOD COUNT 2.89 MIL/MM3 (4.00-5.30); RED CELL DISTRIBUTION WIDTH 14.2 % (11.6-17.2); REVIEW FLAG FINAL; WHITE BLOOD COUNT 8.1 TH/MM3 (4.0-11.0)
[2017-04-15 07:40] LABS: BICARBONATE 27.4 MEQ/L (21.0-32.0)
[2017-04-15] MEDS: FERROUS SULFATE 325 MG (65 MG ELEMENTAL IRON) TAB PO SCH (08:00)
[2017-04-15] MEDS: PANTOPRAZOLE SOD 40 MG DELAYED RELEASE TAB PO SCH (08:00)
[2017-04-15] MEDS: DOCUSATE SODIUM 100 MG CAP PO SCH ×2 (08:00→20:44)
[2017-04-15] MEDS: FOLIC ACID 1 MG TAB PO SCH (08:00)
[2017-04-15] MEDS: GABAPENTIN 300 MG CAP PO SCH ×3 (08:01→17:52)
[2017-04-15] MEDS: METOPROLOL TARTRATE 25 MG TAB PO SCH (08:01)
[2017-04-15] MEDS: ASPIRIN 81 MG CHEW TAB PO SCH (08:05)
--- NOTE | 2017-04-15 09:02 | PD.VS.PN ---
Subjective POD #: 1 Procedure(s): R groin reconstruction angiogram with intervention and distal bypass R EIA to PFA bypass R COMMUNICABLE DISEASE SPECIALIST to SFA bypass R EIA ELECTRIFICATION ADVISER/stent R LE angiogram Subjective/Hospital Course Pt in bed resting comfortably Pt reported she slept well Pain controlled (Lizett Joshua) Objective Vitals/I&O Date Time Temp Pulse Resp B/P (MAP) Pulse Ox O2 Delivery O2 Flow Rate FiO2 04/15/17 07:51 100.4 102 18 140/73 (95) 92 04/15/17 06:01 99 04/15/17 05:10 101 04/15/17 04:05 105 04/15/17 03:54 106 04/15/17 03:51 101.1 89 17 147/71 (96) 95 04/15/17 02:30 102 04/15/17 01:21 104 04/15/17 00:41 96 04/14/17 23:30 99.3 102 18 132/68 (89) 99 04/14/17 23:00 94 04/14/17 22:00 92 04/14/17 21:00 98 04/14/17 20:40 98.8 93 17 146/76 (99) 96 04/14/17 20:40 94 04/14/17 20:15 94 16 130/61 (84) 100 Nasal Cannula 2 04/14/17 19:00 92 16 141/67 (91) 100 Nasal Cannula 2 04/14/17 18:00 89 16 123/60 (81) 100 Nasal Cannula 2 04/14/17 17:40 14 04/14/17 17:00 87 16 144/67 (92) 100 04/14/17 16:00 86 16 139/65 (89) 99 04/14/17 15:45 90 16 123/61 (81) 100 04/14/17 15:30 85 17 123/65 (84) 100 04/14/17 15:15 95 18 130/62 (84) 98 Nasal Cannula 2 04/14/17 15:00 98.3 101 18 136/62 (86) 98 Nasal Cannula 2 04/15/17 04/15/17 04/15/17 07:00 15:00 23:00 Intake Total 982 ml Output Total 1000 ml Balance -18 ml Exam: GENERAL: 61/F, GCS15,NAD SKIN: Warm and dry/ Provena wound vac to right groin intact w/o hematoma CARDIOVASCULAR: RRR, +S1,S2 RESPIRATORY: BS CTA /No accessory muscle use. GASTROINTESTINAL: S/NT MUSCULOSKELETAL: No cyanosis/edema/ Bilat LE warm w/ motor intact/ CAp refill < 3sec L DP/PT with triphasic signals R DP palpable R DP with phasic signals Laboratory Laboratory Tests Test 04/15/17 05:52 White Blood Count 8.1 Red Blood Count 2.89 Hemoglobin 8.6 Hematocrit 25.7 Mean Corpuscular Volume 89.2 Mean Corpuscular Hemoglobin 29.8 Mean Corpuscular Hemoglobin Concent 33.4 Red Cell Distribution Width 14.2 Platelet Count 158 Mean Platelet Volume 9.8 Blood Urea Nitrogen 9 Creatinine 0.50 Random Glucose 101 Calcium Level 8.1 Sodium Level 141 Potassium Level 4.0 Chloride Level 104 Carbon Dioxide Level 27.4 Anion Gap 10 Estimat Glomerular Filtration Rate 125 (Lizett Joshua) Assessment and Plan Assessment: (1) Iron deficiency anemia Status: Acute (2) Peripheral arterial disease Status: Chronic (3) Iliac artery stenosis, bilateral Status: Acute Plan 61/F with a history of left groin reconstruction and distal bypass who over the past several months has developed rest pain of the RIGHT leg. Recent LIYAH 0.2. Pt s/p angiogram/ R groin reconstruction/ distal bypass R leg POD 1 Plan D/C MIVF D/C Cox Cath Ordered I/S PT/OOB/ evaluate and treat Lizett DIMAS [facility] [phone] Discharge Planning 3 days W/ home health pending PT eval recommendation (Lizett Joshua) Plan Looks great - warm foot. Will normalize: d/c Kenny, LEO IVF, OOB TC (Bernardo Avila MD) Lizett Joshua Apr 15, 2017 09:02 Bernardo Avila MD Apr 15, 2017 09:07
[2017-04-15] MEDS: ENOXAPARIN SODIUM 30 MG/0.3 ML SYRINGE SQ SCH (14:00)
--- NOTE | 2017-04-15 20:06 | MP ---
cc: ANUSHA AVILA MD DATE OF SURGERY 04/14/17 PREOPERATIVE DIAGNOSIS Right lower extremity rest pain, peripheral arterial occlusive disease POSTOPERATIVE DIAGNOSIS Right lower extremity rest pain, peripheral arterial occlusive disease PROCEDURE 1. Right external iliac artery to profunda femoris artery bypass with 8 mm Dacron 2. Right common femoral artery to SFA bypass with 8 mm Dacron 3. Aortogram right extremity angiogram. 4. Right external iliac artery stent with a 7 x 100 Zilver PTX MEDICATIONS Toshia Avila MD FERTILIZER MIXER SURGEON Solomon Cano ANESTHESIA General INDICATIONS Ms. García is a 61-year lady who has peripheral vascular occlusive disease. She has previous undergone bilateral groin reconstruction iliac stents and had had recurrent stenoses. The left side has been treated and she now presents with right-sided rest pain and LIYAH of 0.2. She is taken to the operating room for combined endovascular and open bypass procedure. PROCEDURE IN DETAIL Informed consent was obtained from the patient. She was taken to the operating room and placed supine on the operating room table. An appropriate time-out was taken to ensure the patient identity, operative site and the planned procedure. The administration of 1 gram of Ancef was initiated prior to skin incision and will be discontinued after a single preoperative dose. Everyone in the room agreed with time-out and we proceeded. She was prepped from her nipples to her toes. A previous right groin incision was reopened with a 10 blade, carried down to subcutaneous tissue with electrocautery. Then scar tissue was encountered. The common femoral artery was encountered. The inguinal ligament was divided and the external iliac artery was encircled with a vessel loop. We then dissected down the common femoral artery circumferentially down to the profunda and indeed the first three branches of the profunda. The SFA was similarly dissected free and after about 5 cm, it was noted to become softer. The patient was then systemically heparinized and throughout the remainder of the case additional heparin was administered to keep the ACT greater than 250. Proximal and distal control of the external iliac artery, profunda and SFA were obtained with profunda clamps. The entire artery was then excised. The external iliac artery was endarterectomized and an 8 mm Dacron was brought up on the field, spatulated and sewn end-to-end with running 5-0 Prolene suture The proximal EIA clamp was released. There was a weak but palpable pulse in the graft. A David soft jaw was then placed on the graft and the graft was cut to appropriate length and spatulated. The profunda was spatulated down to second order branches and the 8 mm Dacron was sewn end-to-end to the profunda with running 6-0 Prolene suture. At the completion, it was flushed and noted to be hemostatic. There was a palpable pulse in the graft. The David soft jaws were used to occlude the graft proximally and distally to the mid portion and a longitudinal graftotomy was made with an 11 blade, extended with [place] scissors and the remainder of the 8 mm Dacron was spatulated and sewn end-to-side with running 5-0 Prolene suture. At the completion, it was flushed and noted to be hemostatic. Clamps were released and a David soft jaw was placed on the jump graft. The SFA was resected proximally, beveled and the 8 mm Dacron was sewn end-to-end with running 5-0 Prolene suture to the SFA. Hemostasis was achieved as all the clamps were released. A 21 gauge micropuncture needle was used to access the jump graft. This was exchanged using Seldinger technique for a micropuncture sheath through which a 0.035 Glidewire was introduced. The micropuncture sheath was exchanged for a 6-German 23 cm bright tip sheath. Using the bright tip sheath, angle glide wire and Kumpe catheter, we were able to navigate into the previous external iliac artery stent and indeed into the common iliac artery stent and into the aorta. The Kumpe was then advanced to the aorta and the Glidewire was exchanged for a Isaacs wire. The Kumpe was removed and an angiogram was obtained. This showed widely patent common iliac artery stents, but a diseased external iliac artery and near occluded external iliac artery stent. The Kumpe catheter was removed and a 7-mm balloon was used to angioplasty the intervening segment and the completion angiogram showed a residual stenosis and so this was treated with a 7 x 100 Zilver PTX which was post dilated to 7 mm. Completion angiogram showed excellent result without any recoil or extravasation. The distal aspect of the stent intentionally protruded into the patch. The completion runoff showed both branches of the profunda that had been preserved had great runoff and the jump graft to the SFA was widely patent. The SFA was diminutive and diseased but patent throughout. The wire, catheter and sheath were removed. The graftotomy was closed with 6-0 Prolene suture. The wound was irrigated, made hemostatic and closed with 2-0 Polysorb, 3-0 Polysorb and 4-0 Monocryl. The sponge and needle counts were correct at the end of the case. I was present and scrubbed and performed for the entire procedure. MD KOURTNEY Mcintyre/ /5:39 PM /7:50 PM MTDD
[2017-04-15] MEDS ORDERED: ACETAMINOPHEN 325 MG TAB PO ONE (20:30)
[2017-04-15] MEDS ORDERED: METOPROLOL TARTRATE 5 MG/5 ML VIAL IV PUSH ONE (20:30)
[2017-04-15] MEDS: AMITRIPTYLINE HCL 75 MG TAB PO SCH (20:44)
[2017-04-15] MEDS: ATORVASTATIN 40 MG TAB PO SCH (20:44)
[2017-04-16] VITALS (26 sets, daily range): BP systolic 137–165; BP diastolic 74–90; PULSE 78–112; RESP 16–19; TEMP 99.4–103; O2SAT 93–96
[2017-04-16 06:53] LABS: MEAN CELL VOLUME 88.5 FL (80.0-100.0); MEAN CORPUSCULAR HGB CONC 32.8 % (32.0-36.0); PLATELET COUNT 167 TH/MM3 (150-450); RED BLOOD COUNT 3.27 MIL/MM3 (4.00-5.30); REVIEW FLAG FINAL
[2017-04-16 07:02] LABS: BICARBONATE 29.6 MEQ/L (21.0-32.0); POTASSIUM 3.7 MEQ/L (3.5-5.1)
[2017-04-16] MEDS: FOLIC ACID 1 MG TAB PO SCH (08:29)
[2017-04-16] MEDS: CLOPIDOGREL 75 MG TAB PO SCH ×2 (08:29→08:35)
[2017-04-16] MEDS: PANTOPRAZOLE SOD 40 MG DELAYED RELEASE TAB PO SCH (08:29)
[2017-04-16] MEDS: FERROUS SULFATE 325 MG (65 MG ELEMENTAL IRON) TAB PO SCH (08:29)
[2017-04-16] MEDS: ASPIRIN 81 MG CHEW TAB PO SCH ×2 (08:29→08:35)
[2017-04-16] MEDS: DOCUSATE SODIUM 100 MG CAP PO SCH ×2 (08:29→21:06)
[2017-04-16] MEDS: METOPROLOL TARTRATE 25 MG TAB PO SCH (08:29)
[2017-04-16] MEDS: GABAPENTIN 300 MG CAP PO SCH ×3 (08:29→18:12)
--- NOTE | 2017-04-16 09:29 | PD.VS.PN ---
Subjective POD #: 2 Procedure(s): R groin reconstruction angiogram with intervention and distal bypass R EIA to PFA bypass R CUSTOMER ACCOUNT ADMINISTRATOR to SFA bypass R EIA ROOM SERVICE CLERK/stent R LE angiogram Subjective/Hospital Course Febrile last night, resolved with IS and tylenol clinically looks and feels well ambulated yesterday with PT voiding R foot better. Pt doesn't want to take plavix bc of long history of refractory GI bleed Objective Vitals/I&O Date Time Temp Pulse Resp B/P (MAP) Pulse Ox O2 Delivery O2 Flow Rate FiO2 04/16/17 08:19 106 04/16/17 07:48 99.7 105 18 160/80 (106) 93 04/16/17 07:48 103 04/16/17 06:14 105 04/16/17 05:05 108 04/16/17 04:16 106 04/16/17 03:57 111 04/16/17 03:30 100.3 92 18 165/86 (112) 96 04/16/17 02:14 96 04/16/17 01:36 93 04/16/17 00:46 78 04/15/17 23:40 100.1 89 19 111/65 (80) 97 04/15/17 23:00 81 04/15/17 22:00 106 04/15/17 21:00 110 04/15/17 20:00 116 04/15/17 19:50 103.0 120 20 188/80 (116) 92 04/15/17 19:00 116 04/15/17 18:00 116 04/15/17 17:00 118 04/15/17 16:00 94 04/15/17 15:23 99.4 99 18 159/78 (105) 92 04/15/17 15:00 106 04/15/17 14:00 96 04/15/17 13:00 96 04/15/17 12:00 90 04/15/17 11:30 99.4 86 18 113/69 (84) 92 04/15/17 11:00 84 04/15/17 10:00 80 04/16/17 04/16/17 04/16/17 07:00 15:00 23:00 Intake Total 480 ml Output Total 1050 ml Balance -570 ml Exam: no distress, looks great R groin intact foot warm and excellent Doppler signal Pulses: strong signal R foot Laboratory Laboratory Tests Test 04/16/17 06:05 White Blood Count 15.0 Red Blood Count 3.27 Hemoglobin 9.5 Hematocrit 29.0 Mean Corpuscular Volume 88.5 Mean Corpuscular Hemoglobin 29.0 Mean Corpuscular Hemoglobin Concent 32.8 Red Cell Distribution Width 14.0 Platelet Count 167 Mean Platelet Volume 9.9 Blood Urea Nitrogen 8 Creatinine 0.46 Random Glucose 112 Calcium Level 8.2 Sodium Level 134 Potassium Level 3.7 Chloride Level 99 Carbon Dioxide Level 29.6 Anion Gap 5 Estimat Glomerular Filtration Rate 137 Assessment and Plan Assessment: (1) Iron deficiency anemia Status: Acute (2) Peripheral arterial disease Status: Chronic (3) Iliac artery stenosis, bilateral Status: Acute Plan Looks great Check UA and CXR given fever and WBC up PT/OOB ASA 325 and hold plavix Discharge Planning likely tomorrow (POD#3) Bernardo Avila MD Apr 16, 2017 09:29
[2017-04-16] MEDS: ENOXAPARIN SODIUM 30 MG/0.3 ML SYRINGE SQ SCH (13:22)
--- NOTE | 2017-04-16 14:45 | RADRPT ---
EXAM DATE/TIME: 04/16/2017 14:13 [place] COMPARISON: CHEST PA & LAT, April 10, 2017, 12:07. INDICATIONS : Evaluate for pneumonia. MEDICAL HISTORY : None. SURGICAL HISTORY : None. ENCOUNTER: Subsequent ACUITY: 2 days PAIN SCORE: 0/10 LOCATION: Bilateral chest FINDINGS: PA and lateral views of the chest demonstrate the lungs to be symmetrically aerated without evidence of mass, infiltrate or effusion. The cardiomediastinal contours are unremarkable. Osseous structure s are intact. CONCLUSION: No acute disease. Filiberto Easton MD FACR on April 16, 2017 at 14:43 Board Certified Radiologist. This report was verified electronically.
[2017-04-16] MEDS: AMITRIPTYLINE HCL 75 MG TAB PO SCH (21:06)
[2017-04-16] MEDS: ATORVASTATIN 40 MG TAB PO SCH (21:06)
[2017-04-16] MEDS ORDERED: ACETAMINOPHEN 325 MG TAB PO ONE (23:30)
[2017-04-17] VITALS (26 sets, daily range): BP systolic 118–156; BP diastolic 64–81; PULSE 76–106; RESP 16–21; TEMP 98.7–100.6; O2SAT 94–96
--- NOTE | 2017-04-17 07:26 | PD.VS.PN ---
Subjective POD #: 3 Procedure(s): R groin reconstruction angiogram with intervention and distal bypass R EIA to PFA bypass R ROOFING FOREMAN to SFA bypass R EIA CUT ROLL MACHINE OFFBEARER/stent R LE angiogram Subjective/Hospital Course Febrile last night again, but defervesced now. clinically looks and feels well no foot pain Objective Vitals/I&O Date Time Temp Pulse Resp B/P (MAP) Pulse Ox O2 Delivery O2 Flow Rate FiO2 04/17/17 06:09 96 04/17/17 05:12 88 04/17/17 04:01 93 04/17/17 03:45 80 04/17/17 03:45 98.7 93 17 149/77 (101) 94 04/17/17 02:21 82 04/17/17 01:03 100 04/17/17 00:44 106 04/16/17 23:30 103.0 111 18 151/80 (103) 94 04/16/17 23:00 108 04/16/17 22:00 112 04/16/17 21:00 110 04/16/17 20:00 108 04/16/17 19:30 102.0 107 19 160/90 (113) 93 04/16/17 19:00 104 04/16/17 18:54 102 04/16/17 17:26 112 04/16/17 16:05 105 04/16/17 15:39 99.4 105 16 160/79 (106) 95 04/16/17 14:42 106 04/16/17 13:03 103 04/16/17 12:20 94 04/16/17 11:54 95 04/16/17 11:51 100.0 92 16 137/74 (95) 95 04/16/17 10:58 18 04/16/17 08:19 106 04/16/17 07:48 99.7 105 18 160/80 (106) 93 04/16/17 07:48 103 04/17/17 04/17/17 04/17/17 07:00 15:00 23:00 Intake Total 480 ml Output Total 400 ml Balance 80 ml Exam: R groin incision c/d/i minimal erythema caudal to wound no fluctuance Pulses: strong DP signal Laboratory pending Assessment and Plan Assessment: (1) Iron deficiency anemia Status: Acute (2) Peripheral arterial disease Status: Chronic (3) Iliac artery stenosis, bilateral Status: Acute Plan f/u CBC PT/OOB f/u UA reg diet, meds Discharge Planning likely tomorrow (POD#4) Bernardo Avila MD Apr 17, 2017 07:26
[2017-04-17] MEDS: DOCUSATE SODIUM 100 MG CAP PO SCH ×2 (08:28→22:21)
[2017-04-17] MEDS: ASPIRIN EC 325 MG TABEC PO SCH (08:29)
[2017-04-17] MEDS: GABAPENTIN 300 MG CAP PO SCH ×3 (08:29→17:42)
[2017-04-17] MEDS: FOLIC ACID 1 MG TAB PO SCH (08:29)
[2017-04-17] MEDS: FERROUS SULFATE 325 MG (65 MG ELEMENTAL IRON) TAB PO SCH (08:29)
[2017-04-17] MEDS: PANTOPRAZOLE SOD 40 MG DELAYED RELEASE TAB PO SCH (08:30)
[2017-04-17 09:24] LABS: HEMATOCRIT 28.9 % (35.0-46.0); MEAN CELL VOLUME 88.1 FL (80.0-100.0); MEAN CORPUSCULAR HEMOGLOBIN 27.9 PG (27.0-34.0); MEAN CORPUSCULAR HGB CONC 31.6 % (32.0-36.0); PLATELET COUNT 183 TH/MM3 (150-450); RED BLOOD COUNT 3.28 MIL/MM3 (4.00-5.30); RED CELL DISTRIBUTION WIDTH 14.3 % (11.6-17.2); REVIEW FLAG FINAL; WHITE BLOOD COUNT 16.4 TH/MM3 (4.0-11.0)
[2017-04-17] MEDS: METOPROLOL TARTRATE 25 MG TAB PO SCH (09:33)
[2017-04-17] MEDS ORDERED: ACETAMINOPHEN 325 MG TAB PO ONE (10:00)
[2017-04-17 11:48] LABS: BACTERIA, URINE RARE /hpf; BLOOD, URINE NEG (NEG); COMMENT (UR) CULTURE INDICATED; CULTURE IF INDICATED CULTURE INDICATED; GLUCOSE,URINE NEG (NEG); KETONE, URINE TRACE mg/dL (NEG); NITRITE,URINE NEG (NEG); PH, URINE 6.5 (5.0-8.5); SQUAMOUS EPITHELIAL CELL URINE 1 /hpf (0-5); URINE COLOR YELLOW (YELLW/STRAW)
[2017-04-17] MEDS: ENOXAPARIN SODIUM 30 MG/0.3 ML SYRINGE SQ SCH (13:46)
[2017-04-17] MEDS: CIPROFLOXACIN 500 MG TAB PO SCH (22:21)
[2017-04-17] MEDS: AMITRIPTYLINE HCL 75 MG TAB PO SCH (22:21)
[2017-04-17] MEDS: ATORVASTATIN 40 MG TAB PO SCH (22:21)
[2017-04-18] VITALS (13 sets, daily range): BP systolic 126–131; BP diastolic 64–73; PULSE 68–98; RESP 14–18; TEMP 98.6–99.1; O2SAT 95–96
[2017-04-18] MEDS: GABAPENTIN 300 MG CAP PO SCH (09:26)
[2017-04-18] MEDS: CIPROFLOXACIN 500 MG TAB PO SCH (09:26)
[2017-04-18] MEDS: ASPIRIN EC 325 MG TABEC PO SCH (09:27)
[2017-04-18] MEDS: FOLIC ACID 1 MG TAB PO SCH (09:27)
[2017-04-18] MEDS: METOPROLOL TARTRATE 25 MG TAB PO SCH (09:27)
[2017-04-18] MEDS: DOCUSATE SODIUM 100 MG CAP PO SCH (09:27)
[2017-04-18] MEDS: FERROUS SULFATE 325 MG (65 MG ELEMENTAL IRON) TAB PO SCH (09:27)
[2017-04-18] MEDS: PANTOPRAZOLE SOD 40 MG DELAYED RELEASE TAB PO SCH (09:27)
--- NOTE | 2017-04-18 09:32 | PD.VS.PN ---
Subjective POD #: 4 Procedure(s): R groin reconstruction angiogram with intervention and distal bypass R EIA to PFA bypass R ITEM PROCESSING CLERK to SFA bypass R EIA QUARRY PLUG AND FEATHER DRILLER/stent R LE angiogram Subjective/Hospital Course Pt in bed w/o complaints Pt reported she ambulated w/ PT w/o difficulty Pt denies pain Afebrile Objective Vitals/I&O Date Time Temp Pulse Resp B/P (MAP) Pulse Ox O2 Delivery O2 Flow Rate FiO2 04/18/17 06:00 90 04/18/17 05:09 84 04/18/17 04:00 68 04/18/17 03:00 99.1 98 14 126/64 (84) 95 04/18/17 03:00 84 04/18/17 02:00 94 04/18/17 01:22 90 04/18/17 00:00 96 04/17/17 23:00 99 04/17/17 23:00 98.8 102 18 137/75 (95) 94 04/17/17 22:00 104 04/17/17 21:00 104 04/17/17 20:00 100 04/17/17 19:57 98.9 104 21 141/81 (101) 95 04/17/17 19:00 97 04/17/17 18:02 94 04/17/17 17:57 93 04/17/17 16:36 92 04/17/17 15:38 99.0 82 16 118/64 (82) 96 04/17/17 15:38 83 04/17/17 14:04 85 04/17/17 14:03 87 04/17/17 13:25 84 04/17/17 12:39 76 04/17/17 11:30 89 04/17/17 11:30 99.3 79 16 120/71 (87) 94 04/17/17 10:00 92 04/18/17 04/18/17 04/18/17 06:59 14:59 22:59 Intake Total 240 ml Output Total 350 ml Balance -110 ml Exam: GENERAL: A&OX3,NAD,GCS15 SKIN: Warm and dry/Right groin incision w/o R/D/S/O CARDIOVASCULAR: RRR, +S1,S2 RESPIRATORY: BS CTA GASTROINTESTINAL: S/NT MUSCULOSKELETAL: No cyanosis, or edema. LE warm w/ motor intact Palpable R DP Palpable L DP Laboratory Laboratory Tests Test 04/17/17 11:00 Urine Color YELLOW Urine Turbidity CLEAR Urine pH 6.5 Urine Specific [place] 1.012 Urine Protein 30 Urine Glucose (UA) NEG Urine Ketones TRACE Urine Occult Blood NEG Urine Nitrite NEG Urine Bilirubin NEG Urine Urobilinogen LESS THAN 2.0 Urine Leukocyte Esterase LARGE Urine RBC 1 Urine WBC 13 Urine Squamous Epithelial Cells 1 Urine Bacteria RARE Microscopic Urinalysis Comment CULTURE INDICATED Date/Time Source Procedure Growth Status 04/17/17 11:00 Urine Clean Catch Urine Culture Pending Received Assessment and Plan Assessment: (1) Iron deficiency anemia Status: Chronic (2) Peripheral arterial disease Status: Chronic (3) Iliac artery stenosis, bilateral Status: Acute Plan Pt is POD 4 - R groin reconstruction and R LE distal bypass Pt with a + urine culture 04/17/17- Cipro ordered (7D) Pt afebrile and overall doing well Pt cleared for D/C Plan Continue antibiotic therapy (+ Urine culture) D/C today Will arrange OP F/U Lizett DIMAS [facility] [phone] Discharge Planning today Lizett Joshua Apr 18, 2017 09:32
[2017-04-18] MEDS ORDERED: CIPR-9 PO (09:39)
[2017-04-18] MEDS ORDERED: PERC5TAB12 PO (09:39)
--- NOTE | 2017-04-18 09:49 | PD.VS.DC ---
Discharge Summary Admission Date: Apr 14, 2017 at 07:53 Discharge Date: Apr 18, 2017 Admission Diagnosis: (1) Iliac artery stenosis, bilateral (2) Peripheral arterial disease (3) Anemia (4) Iron deficiency anemia Discharge Diagnosis: (1) Iron deficiency anemia ICD Codes: D50.9 - Iron deficiency anemia, unspecified Status: Chronic (2) Peripheral arterial disease ICD Codes: I73.9 - Peripheral vascular disease, unspecified Status: Chronic (3) Iliac artery stenosis, bilateral ICD Codes: I77.1 - Stricture of artery Status: Acute (4) UTI (urinary tract infection) ICD Codes: N39.0 - Urinary tract infection, site not specified Status: Acute Brief History from admission 61 yo female well known to me with 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 Presents for R groin reconstruction and endovascular and open revascularization of R leg. Procedure(s): R groin reconstruction angiogram with intervention and distal bypass R EIA to PFA bypass R DYNAMO REPAIRER to SFA bypass R EIA ENTRY LEVEL TRUCK DRIVER/stent R LE angiogram Significant Findings GENERAL: A&OX3,NAD,GCS15 SKIN: Warm and dry/Right groin incision w/o R/D/S/O CARDIOVASCULAR: RRR, +S1,S2 RESPIRATORY: BS CTA GASTROINTESTINAL: S/NT MUSCULOSKELETAL: No cyanosis, or edema. LE warm w/ motor intact Palpable R DP Palpable L DP Laboratory Tests Test 04/16/17 06:05 04/17/17 08:02 04/17/17 11:00 White Blood Count 15.0 TH/MM3 (4.0-11.0) 16.4 TH/MM3 (4.0-11.0) Red Blood Count 3.27 MIL/MM3 (4.00-5.30) 3.28 MIL/MM3 (4.00-5.30) Hemoglobin 9.5 GM/DL (11.6-15.3) 9.1 GM/DL (11.6-15.3) Hematocrit 29.0 % (35.0-46.0) 28.9 % (35.0-46.0) Creatinine 0.46 MG/DL (0.50-1.00) Random Glucose 112 MG/DL (74-106) Calcium Level 8.2 MG/DL (8.5-10.1) Sodium Level 134 MEQ/L (136-145) Mean Corpuscular Hemoglobin Concent 31.6 % (32.0-36.0) Urine Protein 30 mg/dL (NEG-TRACE) Urine Ketones TRACE mg/dL (NEG) Urine Leukocyte Esterase LARGE (NEG) Urine WBC 13 /hpf (0-5) Urine Bacteria RARE /hpf (NONE) Hospital Course: 61 yo female with a 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 Pt Presents for R groin reconstruction and endovascular and open revascularization of R leg. Pt developed a low grade fever on POD 1-3 U/A and chest XR ordered Chest X-ray w/o any acute findings/ Urine culture + Pt treated with Ciprofloxacin (7Days) POD 4 pt afebrile, reports improved ambulation w/o rest pain or claudication Pt clear for d/c and will F?U in our OPC Allergies Coded Allergies Type Severity Reaction Last Updated Verified No Known Allergies 04/14/17 No Recent Impressions Chest X-Ray 04/16/17 0000 Signed Impressions: Service Date/Time: Sunday, April 16, 2017 14:13 - CONCLUSION: No acute disease. Filiberto Easton MD FACR 04/16/17 04/16/17 04/17/17 04/17/17 04/18/17 04/18/17 05:59 17:59 05:59 17:59 05:59 17:59 Intake Total 480 ml 960 ml 480 ml 720 ml 240 ml Output Total 1050 ml 1100 ml 400 ml 1250 ml 350 ml Balance -570 ml -140 ml 80 ml -530 ml -110 ml Intake Oral 480 ml 960 ml 480 ml 720 ml 240 ml Output Urine Total 1050 ml 1100 ml 400 ml 1250 ml 350 ml # Voids 1 # Bowel Movements 0 Laboratory Tests Test 04/16/17 06:05 04/17/17 08:02 04/17/17 11:00 White Blood Count 15.0 TH/MM3 16.4 TH/MM3 Red Blood Count 3.27 MIL/MM3 3.28 MIL/MM3 Hemoglobin 9.5 GM/DL 9.1 GM/DL Hematocrit 29.0 % 28.9 % Mean Corpuscular Volume 88.5 FL 88.1 FL Mean Corpuscular Hemoglobin 29.0 PG 27.9 PG Mean Corpuscular Hemoglobin Concent 32.8 % 31.6 % Red Cell Distribution Width 14.0 % 14.3 % Platelet Count 167 TH/MM3 183 TH/MM3 Mean Platelet Volume 9.9 FL 9.9 FL Blood Urea Nitrogen 8 MG/DL Creatinine 0.46 MG/DL Random Glucose 112 MG/DL Calcium Level 8.2 MG/DL Sodium Level 134 MEQ/L Potassium Level 3.7 MEQ/L Chloride Level 99 MEQ/L Carbon Dioxide Level 29.6 MEQ/L Anion Gap 5 MEQ/L Estimat Glomerular Filtration Rate 137 ML/MIN Urine Color YELLOW Urine Turbidity CLEAR Urine pH 6.5 Urine Specific [place] 1.012 Urine Protein 30 mg/dL Urine Glucose (UA) NEG mg/dL Urine Ketones TRACE mg/dL Urine Occult Blood NEG Urine Nitrite NEG Urine Bilirubin NEG Urine Urobilinogen LESS THAN 2.0 MG/DL Urine Leukocyte Esterase LARGE Urine RBC 1 /hpf Urine WBC 13 /hpf Urine Squamous Epithelial Cells 1 /hpf Urine Bacteria RARE /hpf Microscopic Urinalysis Comment CULTURE INDICATED Orders Procedure Category Date Status Time Acetaminophen MED 04/15/17 Complete (Tylenol) 20:30 Metoprolol Tartrate MED 04/15/17 Complete Inj (Lopressor Inj) 20:30 Urinalysis - C+S If LAB 04/16/17 Complete Indicated 08:45 Specimen To Be LAMONTE 04/16/17 In Process Collected 08:45 Chest, Pa & Lat RADDIAG 04/16/17 Resulted Cbc No Diff, Includes LAB 04/17/17 Complete Plts 06:00 Aspirin Ec (Ecotrin MED 04/17/17 In Process Ec) 09:00 Acetaminophen MED 04/16/17 Complete (Tylenol) 23:30 Acetaminophen MED 04/17/17 Complete (Tylenol) 10:00 Urine Culture BEN 04/17/17 In Process 11:00 Ciprofloxacin (Cipro) MED 04/17/17 In Process 21:00 Attending Discharge DISCHARGE 04/18/17 Transmitted Order Vital Signs Date Time Temp Pulse Resp B/P (MAP) Pulse Ox O2 Delivery O2 Flow Rate FiO2 04/18/17 06:00 90 04/18/17 05:09 84 04/18/17 04:00 68 04/18/17 03:00 99.1 98 14 126/64 (84) 95 04/18/17 03:00 84 04/18/17 02:00 94 04/18/17 01:22 90 04/18/17 00:00 96 04/17/17 23:00 99 04/17/17 23:00 98.8 102 18 137/75 (95) 94 04/17/17 22:00 104 04/17/17 21:00 104 04/17/17 20:00 100 04/17/17 19:57 98.9 104 21 141/81 (101) 95 04/17/17 19:00 97 04/17/17 18:02 94 04/17/17 17:57 93 04/17/17 16:36 92 04/17/17 15:38 99.0 82 16 118/64 (82) 96 04/17/17 15:38 83 04/17/17 14:04 85 04/17/17 14:03 87 04/17/17 13:25 84 04/17/17 12:39 76 04/17/17 11:30 89 04/17/17 11:30 99.3 79 16 120/71 (87) 94 04/17/17 10:00 92 04/17/17 09:00 90 04/17/17 08:00 102 04/17/17 07:30 104 04/17/17 07:30 100.6 105 16 156/80 (105) 95 04/17/17 06:09 96 04/17/17 05:12 88 04/17/17 04:01 93 04/17/17 03:45 80 04/17/17 03:45 98.7 93 17 149/77 (101) 94 04/17/17 02:21 82 04/17/17 01:03 100 04/17/17 00:44 106 04/16/17 23:30 103.0 111 18 151/80 (103) 94 04/16/17 23:00 108 04/16/17 22:00 112 04/16/17 21:00 110 04/16/17 20:00 108 8/30/17 19:30 102.0 107 19 160/90 (113) 93 04/16/17 19:00 104 04/16/17 18:54 102 04/16/17 17:26 112 04/16/17 16:05 105 04/16/17 15:39 99.4 105 16 160/79 (106) 95 04/16/17 14:42 106 04/16/17 13:03 103 04/16/17 12:20 94 04/16/17 11:54 95 04/16/17 11:51 100.0 92 16 137/74 (95) 95 04/16/17 10:58 18 04/16/17 08:19 106 04/16/17 07:48 99.7 105 18 160/80 (106) 93 04/16/17 07:48 103 04/16/17 06:14 105 04/16/17 05:05 108 04/16/17 04:16 106 04/16/17 03:57 111 04/16/17 03:30 100.3 92 18 165/86 (112) 96 04/16/17 02:14 96 04/16/17 01:36 93 04/16/17 00:46 78 04/15/17 23:40 100.1 89 19 111/65 (80) 97 04/15/17 23:00 81 04/15/17 22:00 106 04/15/17 21:00 110 04/15/17 20:00 116 04/15/17 19:50 103.0 120 20 188/80 (116) 92 04/15/17 19:00 116 04/15/17 18:00 116 04/15/17 17:00 118 04/15/17 16:00 94 04/15/17 15:23 99.4 99 18 159/78 (105) 92 04/15/17 15:00 106 04/15/17 14:00 96 04/15/17 13:00 96 04/15/17 12:00 90 04/15/17 11:30 99.4 86 18 113/69 (84) 92 04/15/17 11:00 84 04/15/17 10:00 80 Discharge Condition: Good Discharge Disposition: Discharge Home Discharge Instructions: Leave Right groin incision open to air Report any new onset redness, drainage or swelling Continue Ciprofloxacin for 6 days (UTI) Continue to ambulate daily Continue ASA 325mg daily May shower tomorrow Am NO tub baths, swimming or submerging in the ocean UNTIL Right groin incision is fully healed Lizett DIMAS [facility] [phone] Any questions or concerns: Call [facility] at [facility] [phone] Lizett Joshua Apr 18, 2017 09:49
== END 2017-04-18 11:51 | disposition home or self-care (01) | DRG 271 ==
LOC: HSDI 07:53 → HCIN 20:34
PROVIDERS: ADMIT Surgery; ATTEND Surgery
PROC: 047H0DZ Dilation of Right External Iliac Artery with Intraluminal Device, Open Approach (ICD-10-PCS; 2017-04-14)
PROC: 041H0JH Bypass Right External Iliac Artery to Right Femoral Artery with Synthetic Substitute, Open Approach (ICD-10-PCS; principal; 2017-04-14 10:25)
PROC: 041K0JH Bypass Right Femoral Artery to Right Femoral Artery with Synthetic Substitute, Open Approach (ICD-10-PCS; 2017-04-14 10:25)
DX: I70.221 Atherosclerosis of native arteries of extremities with rest pain, right leg (principal); N39.0 Urinary tract infection, site not specified; J44.9 Chronic obstructive pulmonary disease, unspecified; I10 Essential (primary) hypertension; F41.9 Anxiety disorder, unspecified; K21.9 Gastro-esophageal reflux disease without esophagitis; D50.9 Iron deficiency anemia, unspecified
CPT/HCPCS: 71020; 75710; 76937; 80048; 81001; 85027; 86850; 86900; 86901; 86920; 87086; 94150; C1725; C1768; C1769; C1874; J0690; J1644; J1650; J2250; J2270; J2370; J2405; J2720; J3010; J3370; J7040; J7120

== ENCOUNTER 2017-10-23 08:03 | Day surgery (SDC) | payer OTHER ==
[~2017-10-23] VITALS: Ht 147.3 cm; Wt 60.4 kg
[~2017-10-23 08:03] MED LIST changes: -AMIT50TA3 PO; +CIPR-9 PO; -COUM5TAB PO; +PERC5TAB12 PO
[2017-10-23] MEDS ORDERED: IOHEXOL 350 MG/ML 50 ML BTL (for Cath Lab) OTHER ONE (08:04)
[2017-10-23 09:32] LABS: CREATININE 0.63 MG/DL (0.50-1.00)
[2017-10-23 09:45] VITALS: BP 157/89; PULSE 68; RESP 18; TEMP 97.9; O2SAT 99
[2017-10-23] MEDS ORDERED: SODIUM BICARBONATE 100 MEQ in D5W 1000 ML IV SCH (09:45)
--- NOTE | 2017-10-23 09:50 | PD.VS.PN ---
Pre-operative Note Pre-operative diagnosis: R LE rest pain, PAD Planned procedure: Aortogram w/ R LE angiogram Interval History: Pt has persistent pain in the R leg no new problems and ready for surgery Labs: pending Blood: none needed Imaging: will make in the OR Orders: NPO Post-operative destination: DOCU Operative site marked: Yes Consent: Informed consent has been obtained from Ivon Mejia. I have explained the procedure in detail and discussed the risks, benefits, and potential complications. All questions have been answered. Patient contact information: Daughter [phone] (Gretchen) Bernardo Avila MD Oct 23, 2017 09:50
[2017-10-23] MEDS ORDERED: IPRA17I INH (10:13)
[2017-10-23] MEDS ORDERED: LOSA50TA PO (10:13)
[2017-10-23] MEDS ORDERED: BUPR150T3 (10:13)
[2017-10-23] MEDS ORDERED: HYDR25TA5 PO (10:13)
[2017-10-23] MEDS ORDERED: FERR325T18 PO (10:13)
[2017-10-23] MEDS ORDERED: GABA400C5 PO (10:13)
[2017-10-23] MEDS ORDERED: MIDAZOLAM HCL 2 MG/2 ML VIAL ONE (11:55)
--- NOTE | 2017-10-23 12:13 | HHI.PR ---
cc: Bernardo Avila MD Immediate Post Op Note Procedure Date: Oct 23, 2017 Pre Op Diagnosis: R LE rest pain, PAD Post Op Diagnosis: RLE rest pain, PAD Surgeon: Bernardo Avila Channel Supervisor(s): none Procedure: R LE angiogram Findings: 1. Stenosis of PFA 2. Occlusion of proximal SFA and then high grade stenosis throughout 3. 2 vessel runoff to foot Additional Information: pressure held for hemostasis Complications: none Specimen(s) removed: none Estimated blood loss: 5mL Anesthesia: MAC Drains: None Patient to: Other (DOCU) Patient Condition: Good Date/Time of Procedure: SEE SURGICAL CARE RECORD Bernardo Avila MD Oct 23, 2017 12:13
[2017-10-23] MEDS ORDERED: HEPARIN-NS/PF FLUSH BAG 1,000 ML IV FLUSH ONE (12:18)
--- NOTE | 2017-10-23 12:22 | CATHPROC ---
[employer] HIS Report Study Information Study Number Admission Scheduled Start Study Start [id number] Oct 23 2017 8:03AM 10/23/2017 Oct 23 2017 11:53AM [place] Service Cath Endovascular Study Admit Source Facility Department Other [facility] - Stone [facility]ric[facility] Physician and Clinical Staff Initial MD Avila, Bernardo Phys Ther Carmella Mckeon,RN Recorder Akil Betancourt,RT(R) Scrub Judd Montoya,RT(R) Procedures Performed Procedure Location (Site) Vessel Name Angiogram (manual) Fem R. Com (R7) Femoral Art Angiogram (manual) Popliteal R (R10) Popliteal Angiogram (manual) SFA (right) Femoral Art Angiogram (manual) Tib, Ant. (right) Popliteal Angiogram (manual) Tib, Post (right) Popliteal Equipment Time Pharmacy Tech Customer Service Description Size Mfg Part Number Used/Scraped [id number] 12:01 ANGIO-DYNAMICS OMNI FLUSH 65CM CATHETER FR 4 Used *[id number] INTRODUCER SET, 12:01 [employer] FR 5 [id number] *[id number] Used MICROPUNCTURE, STIFFENED [id number] 12:01 [employer] PACK, CCL CUSTOM * Used *[id number] TUBING, PRESSURE INJECTION [id number] 12:01 NAMIC PACER 72" Used 72" *[id number] 12:01 NYCOMED OMNIPAQUE, 300 MG, 50ML 50ML [id number] Used [id number] 12:01 [employer] BLANKET,WARM AIR CCL * Used *[id number] 12:01 TERUM[employer] MEDICAL SHEATH, FR4 TERUMO (10CM) FR 4 Used *[id number] WIRE, ANGLED GLIDE .035 [id number] 12:01 TERUMO MEDICAL/MARGARITO 260CM Used 260CM *[id number] History: Current Medications Medication Dosage/Unit Route Frequency Last Date/Time Taken HCTZ History: Allergies Allergy Reaction No Known Allergies History: Risk Factors Family History of Hypertension Dyslipidemia Previous ND Previous Heart Failure Premature CAD Yes No No No No Prior Valve Prior PCI Prior CABG Surgery No No No Cerebrovascular Peripheral Artery Chronic Lung On Dialysis Diabetes Disease Disease Disease No No Yes No No History: Stress Tests Stress or Imaging Studies Performed No History: Other Disease Selection Items HTN Labs Hgb (g/dl) 11.60-17.00 Not Drawn Creatinine (mg/dl) 0.50-1.30 0.6 CPK-MB (ng/ML) 0.50-3.60 Not Drawn Medication Medication Total Dose (Bolus/Oral) Medication Total Dosage/Unit 1% XYLOCAINE 20 mL FENTANYL 50 mcg VERSED 1 mg Medications (Bolus/Oral) Medication Time Given Dosage/Unit Administered By Reason 1% XYLOCAINE 10/23/2017 12:02:47 PM 20 mL Bernardo Avila 20 mL 1% XYLOCAINE given in lab by Bernardo Avila in Right Groin via Subcutaneous. VERSED 10/23/2017 12:03:06 PM 1 mg Carmella Mckeon 1 mg VERSED given in lab by Carmella Mckeon RN in Right Antecubital via Peripheral IV. FENTANYL 10/23/2017 12:03:14 PM 50 mcg Carmella Mckeon 50 mcg FENTANYL given in lab by Carmella Mckeon RN in Right Antecubital via Peripheral IV. Medication (Drip) Medication Time Given Dosage/Unit Concentration/Unit Diluent (ml) Solution IV Solutions 10/23/2017 11:53:05 AM 0 mL (IV) 500 NaCl .9 IV Solutions given in lab by Carmella Mckeon RN in Right Antecubital via Peripheral IV. Pump/Drip Fl ow = 500 ml/hr using NaCl .9. Initial Case Assessment Cardiovascular HR Rhythm NIBP Chest Pain 71 Sinus 158/85 0 Edema Present Skin color Skin None Normal Warm Dry Circulatory - Right Pulses Femoral 1 Scale (0,1,2,3,4,d) Circulatory - Left Pulses Femoral 1 Scale (0,1,2,3,4,d) Neurological State Oriented to time-place- Alert Moves all extremities person Respiration - General Respiration Rate SpO2 (%) O2 (lpm) (B/min) 20 99 0 Final Case Assessment Cardiovascular HR Rhythm NIBP Chest Pain 69 Sinus 138/77 0 Edema Present Skin color Skin None Normal Warm Dry Circulatory - Right Pulses Femoral 1 Scale (0,1,2,3,4,d) Circulatory - Left Pulses Femoral 1 Scale (0,1,2,3,4,d) Neurological State Oriented to time-place- Alert Moves all extremities person Respiration - General Respiration Rate SpO2 (%) O2 (lpm) (B/min) 18 92 0 Chronological Log Time Study Chronological Log 11:45:07 MD arrived. 11:45:51 Patient arrived via Bed. 11:52:52 Patient Name, D.O.B, / Armband Verified By R.N. 11::53 Consent signed by the physician and the patient and verified by the Stone Fabric[facility] staff. ::53 Pre-op and post- op instructions given; patient acknowledges understanding of instructions. 11:52:54 Verbal Stimulation=2 Physical Stimulation=2 Airway=2 Respiration=2 TOTAL=8. (0=absent, 1=li mited, 2=present) ::55 Presedation assessment performed by Stone Fabricator RN. ::58 Patient has been NPO for More than 6Hrs. ::58 Skin Breakdown- 11:53:01 Patient Warmer Placed on the Table. 11:53:02 Minh Prominences Protected 11:53:03 A # 20 IV was noted in the Antecubital (right). Grade = 0 IV Solutions given in lab by Carmella Mckeon, MIRTHA in Right Antecubital via Peripheral IV. Pump/D rip Flow = 500 ml/hr 11:53:05 using NaCl .9. 11:53:06 History and physical on the chart or being dictated. Assessment: Initial Case, HR=71 BPM, Rhythm=Sinus, KVJL=453/85 mmhg, Chest Pain=0, Edema=None, Color=Normal, Skin = Warm, Dry Right Pulses: Femoral=1 11:53:06 Left Pulses: Femoral=1 Neurological: State=Alert, Ox3, GOSS Respiration: Resp=20 B/min, SpO2=99 %, O2=0 lpm Vitals capture started with the following parameters, Patient=Adult, Interval=5 min, Initial Pr ysckdw=576 mmHg, 11:53:09 Deflation Rate=5 mmHg, Cuff placed on Right Ankle 11::55 HR=71 bpm, NAPY=064/85 mmhg, SpO2=99.0 %, Resp=20 B/min, Pain=0, Kellee=10, Jiang=2 11:58:46 HR=70 bpm, RPWX=800/77 mmhg, SpO2=98.0 %, Resp=24 B/min, Pain=0, Kellee=10, Jiang=2 12:02:02 Bilateral groins prepped with 2% chlorhexidine, and draped after a 3 minute waiting time. Time Out. Correct patient, correct procedure, correct physician, power injector loaded with con trast with surgical team 12:02:37 present. Time Out Concurred by MD and individual staff in procedure. 12:02:46 Case Start 12:02:47 20 mL 1% XYLOCAINE given in lab by Bernardo Avila in Right Groin via Subcutaneous. 12:03:06 1 mg VERSED given in lab by Carmella Mckeon, MIRTHA in Right Antecubital via Peripheral IV. 12:03:14 50 mcg FENTANYL given in lab by Carmella Mckeon, MIRTHA in Right Antecubital via Peripheral IV. 12:03:45 HR=72 bpm, SUSK=150/81 mmhg, SpO2=99.0 %, Resp=21 B/min, Pain=0, Kellee=10, Jiang=2 12:04:31 Access site was Right Femoral Artery. 12:05:07 Fem R. Com (R7) angiogram, manually injected. 12:05:28 SFA (right) angiogram, manually injected. 12:06:02 SFA (right) angiogram, manually injected. 12:06:44 Popliteal R (R10) angiogram, manually injected. 12:07:57 Tib, Ant. (right) angiogram, manually injected. 12:08:21 Tib, Post (right) angiogram, manually injected. 12:08:48 HR=72 bpm, IMHB=887/77 mmhg, SpO2=92.0 %, Resp=20 B/min, Pain=0, Kellee=10, Jiang=2 12:08:48 Case End 12:09:05 Sheath removed; pressure applied to access site. 12:09:32 No case complications noted. 12:09:33 Cine recording checked. 12:10:01 Bedside Report will be given. Assessment: Final Case, HR=69 BPM, Rhythm=Sinus, CJCU=167/77 mmhg, Chest Pain=0, Edema=None, Color=Normal, Skin = Warm, Dry Right Pulses: Femoral=1 12:10:23 Left Pulses: Femoral=1 Neurological: State=Alert, Ox3, GOSS Respiration: Resp=18 B/min, SpO2=92 %, O2=0 lpm 12:13:43 HR=71 bpm, QQQH=976/77 mmhg, SpO2=93.0 %, Resp=22 B/min, Pain=0, Kellee=10, Jiang=2 12:18:46 HR=69 bpm, CSND=636/73 mmhg, SpO2=95.0 %, Resp=20 B/min, Pain=0, Kellee=10, Jiang=2 12:19:52 Vitals capture stopped. 12:19:58 Sterile dressing applied to site 12:20:02 Patient moved to stretcher End Study - Contrast Media Used In Study Contrast Total Opened (mL) Total Used (mL) Total Wasted (mL) Omnipaque 200 25 175 End Study - Maximum Contrast Load Max Contrast Load (mL) 503.4 End Study - Radiation Exposure Fluoro Time (minutes) 0.5 End Study - Patient Disposition Complications Transferred To Interventional Outcome No Outpatient Bed No attempt made
--- NOTE | 2017-10-24 10:48 | MP ---
cc: Bernardo Avila MD DATE OF OPERATION: 10/23/2017 PREOPERATIVE DIAGNOSIS: Right lower extremity rest pain, peripheral artery occlusive disease. POSTOPERATIVE DIAGNOSIS: Right lower extremity rest pain, peripheral artery occlusive disease. PROCEDURE PERFORMED: Right lower extremity angiogram. ATTENDING SURGEON: Bernardo Avila MD ANESTHESIA: Local with sedation. INDICATIONS FOR PROCEDURE: Ms. García is a 62-year-old lady who has bilateral groin reconstructions, iliac stents and right lower extremity rest pain. This rest pain is new and she was taken to the operating room for angiographic evaluation and treatment. There is no prior catheterization which is available to my review since the onset of her rest pain. DESCRIPTION OF PROCEDURE: Informed consent obtained from the patient. She was taken to the operating room, placed supine on the operating table. An appropriate time out was taken to ensure the patient's identity, operative site and planned procedure. The administration of antibiotics was not necessary. This is a clean procedure, without the planned implantation of any foreign objects. Everyone in the room agreed with the time out and we proceeded. Her bilateral groins were prepped and draped and right groin was anesthetized with 1% lidocaine. A 21 gauge Micropuncture needle was used to access the right common femoral artery. This was exchanged using Seldinger technique for the Micropuncture sheath to which a right lower extremity angiogram was obtained. The Micropuncture sheath was removed and pressure was held for hemostasis. There were no complications. I was present and scrubbed for the entire procedure. INTERPRETATION OF IMAGES: The patient has patent iliac stent, patent common femoral artery. Stenosis of the profunda femoris artery and occlusion of the proximal superficial femoral artery. The mid SFA reconstitutes via profunda based collaterals and the SFA has several high grade stenoses throughout its entirety. The below knee popliteal artery is patent and the patient has 2 vessel run off to the foot. MD KOURTNEY Mcintyre/ELVA , 06:03 PM , 08:00 PM
== END 2017-10-23 14:51 | disposition home or self-care (01) ==
LOC: HDIC 08:03 → HDOC 08:03
PROVIDERS: ATTEND Surgery
DX: I70.221 Atherosclerosis of native arteries of extremities with rest pain, right leg (principal)
CPT/HCPCS: 36140; 75710; 82565; 99152; J1644; J2250; J3010; Q9967

== ENCOUNTER → 2017-10-31 | Outpatient (CLI) | payer OTHER ==
[~2017-10-31] MED LIST changes: -AMIT75TA2 PO; +BUPR150T3; -CIPR-9 PO; +FERR325T18 PO; -FOLI800T PO; -GABA300C5 PO; +GABA400C5 PO; +HYDR25TA5 PO; -LOSA25TA PO; +LOSA50TA PO; -METO25TA3 PO; -PANT40TA3 PO; -SLOW50TA PO
[2017-10-31 13:50] LABS: HEMATOCRIT 24.1 % (35.0-46.0); HEMOGLOBIN 7.9 GM/DL (11.6-15.3); MEAN CELL VOLUME 86.5 FL (80.0-100.0); MEAN CORPUSCULAR HEMOGLOBIN 28.5 PG (27.0-34.0); MEAN CORPUSCULAR HGB CONC 32.9 % (32.0-36.0); MEAN PLATELET VOLUME 9.2 FL (7.0-11.0); PLATELET COUNT 229 TH/MM3 (150-450); RED BLOOD COUNT 2.78 MIL/MM3 (4.00-5.30); RED CELL DISTRIBUTION WIDTH 16.7 % (11.6-17.2)
[2017-10-31 13:58] LABS: PROTHROMBIN TIME - PATIENT 10.2 SEC (9.8-11.6)
[2017-10-31 14:17] LABS: BICARBONATE 29.7 MEQ/L (21.0-32.0); CALCIUM 9.3 MG/DL (8.5-10.1); CREATININE 0.58 MG/DL (0.50-1.00)
== END ==
LOC: CPRE 12:45
PROVIDERS: ATTEND Surgery
DX: Z01.812 Encounter for preprocedural laboratory examination (principal); I73.9 Peripheral vascular disease, unspecified
CPT/HCPCS: 36415; 80048; 85027; 85610; 86850; 86900; 86901

== ENCOUNTER 2017-11-04 07:36 | Inpatient (IN) | payer OTHER ==
[~2017-11-04] VITALS: Ht 149.9 cm; Wt 64.0 kg
[~2017-11-04 07:36] MED LIST changes: -PERC5TAB12 PO
[2017-11-04] MEDS ORDERED: SODIUM CHLORID 0.9% 500 ML IV PRN (08:30)
[2017-11-04] MEDS ORDERED: POVIDONE IODINE 5% (ANTISEPSIS KIT) 4 APPLICATIONS EACH NARE PRN (08:30)
[2017-11-04] MEDS ORDERED: LACTATED RINGER'S 1000 ML IV PRN (08:30)
[2017-11-04] MEDS ORDERED: METOPROLOL TARTRATE 25 MG TAB PO PRN (08:30)
[2017-11-04] MEDS ORDERED: CHLORHEXIDINE GLUCONATE 2 % 1 PACK (2 CLOTHS) TOPICAL PRN (08:30)
[2017-11-04 08:55] LABS: AUTOMATED NEUTROPHIL # 4.1 TH/MM3 (1.8-7.7); BASOPHIL % 0.8 % (0.0-2.0); EOSINOPHIL # 0.2 TH/MM3 (0-0.4); EOSINOPHIL % 2.8 % (0.0-4.0); HEMATOCRIT 22.6 % (35.0-46.0); HEMOGLOBIN 7.2 GM/DL (11.6-15.3); LYMPHOCYTE # 1.1 TH/MM3 (1.0-4.8); MEAN CELL VOLUME 89.4 FL (80.0-100.0); MEAN CORPUSCULAR HEMOGLOBIN 28.5 PG (27.0-34.0); MEAN CORPUSCULAR HGB CONC 31.9 % (32.0-36.0); MEAN PLATELET VOLUME 9.7 FL (7.0-11.0); MONO % 6.6 % (0.0-8.0); MONOCYTE # 0.4 TH/MM3 (0-0.9); NEUT % 70.8 % (16.0-70.0); PLATELET COUNT 223 TH/MM3 (150-450); RED BLOOD COUNT 2.53 MIL/MM3 (4.00-5.30); RED CELL DISTRIBUTION WIDTH 17.9 % (11.6-17.2); WHITE BLOOD COUNT 5.8 TH/MM3 (4.0-11.0)
[2017-11-04 09:56] LABS: POLYCHROMASIA 2.5 % (0.0-1.9)
--- NOTE | 2017-11-04 10:04 | HHI.HP ---
History of Present Illness Chief Complaint: R LE rest pain History of Present Illness 62 yo female with PAD and h/o B groin reconstruction and iliac stents. Over past few months has developed recurrent R LE rest pain without tissue loss and no motor dysfunction. Angio showed severe R LE occlusive disease. Planned for R LE bypass. Past/Family/Social History Past Medical History HTN PAD CAD anemia Past Surgical History B groin reconstructions iliac stents Social History former smoker Family History NC Home Medications Reported Medications Gabapentin (Gabapentin) 400 Mg Cap, 400 CAP PO TID, #30 CAP 0 Refills 10/23/17 Losartan (Losartan) 50 Mg Tab, 50 MG PO DAILY for Blood Pressure Management, # 30 TAB 0 Refills 10/23/17 Ipratropium HFA 12.9 GM Inh (Atrovent HFA 12.9 GM Inh) 17 Mcg/Actuation Aer, 2 PUFF INH Q6HR Y for SHORTNESS OF BREATH, #1 INHALER 0 Refills 10/23/17 Ferrous Sulfate (Ferrous Sulfate) 325 Mg (65 Mg Iron) Tablet, 325 MG PO DAILY for Nutritional Supplement, #30 TAB 0 Refills 10/23/17 Bupropion HCl ER 24 HR (Bupropion HCl ER 24 HR) 150 Mg Tab, 150 MG DAILY for Control Depression, TAB 0 Refills 10/23/17 Discontinued Reported Medications Hydrochlorothiazide (Hydrochlorothiazide) 25 Mg Tab, 25 MG PO DAILY, #30 TAB 0 Refills 10/23/17 Coded Allergies: No Known Allergies (Unverified Allergy, Unknown, 11/04/17) Review of Systems Constitutional: DENIES: Diaphoretic episodes, Fatigue, Fever, Weight gain, Weight loss, Chills, Dizziness, Change in appetite, Night Sweats Physical Exam Vitals/I&O Date Time Temp Pulse Resp B/P (MAP) Pulse Ox O2 Delivery O2 Flow Rate FiO2 11/04/17 08:10 98.6 71 20 153/77 (102) 98 Neuro: alert, oriented, no distress HEENT: NC/AT Neck: no JVD Heart: reg rate, no M Lungs: clear B Vascular: palpable femoral pulses healed R groin incision Extremities: Feet pink perfused without tissue loss Laboratory Tests Test 11/04/17 08:27 White Blood Count 5.8 Red Blood Count 2.53 Hemoglobin 7.2 Hematocrit 22.6 Mean Corpuscular Volume 89.4 Mean Corpuscular Hemoglobin 28.5 Mean Corpuscular Hemoglobin Concent 31.9 Red Cell Distribution Width 17.9 Platelet Count 223 Mean Platelet Volume 9.7 Neutrophils (%) (Auto) 70.8 Lymphocytes (%) (Auto) 19.0 Monocytes (%) (Auto) 6.6 Eosinophils (%) (Auto) 2.8 Basophils (%) (Auto) 0.8 Neutrophils # (Auto) 4.1 Lymphocytes # (Auto) 1.1 Monocytes # (Auto) 0.4 Eosinophils # (Auto) 0.2 Basophils # (Auto) 0.0 CBC Comment AUTO DIFF Differential Comment AUTO DIFF CONFIRMED Platelet Estimate NORMAL Platelet Morphology Comment NORMAL Polychromasia 2.5 angio reviewed Caprini VTE Risk Assessment Caprini VTE Risk Assessment: No/Low Risk (score <= 1) Caprini Risk Assessment Model Point Value = 1 Point Value = 2 Point Value = 3 Point Value = 5 Age 41-60 Minor surgery BMI > 25 kg/m2 Swollen legs Varicose veins or History of unexplained or recurrent spontaneous Oral contraceptives or hormone replacement Sepsis (< 1 month) Serious lung disease, including pneumonia (< 1 month) Abnormal pulmonary function Acute myocardial infarction Congestive heart failure (< 1 month) History of inflammatory bowel disease Medical patient at bed rest Age 61-74 Arthroscopic surgery Major open surgery (> 45 min) Laparoscopic surgery (> 45 min) Malignancy Confined to bed (> 72 hours) Immobilizing plaster cast Central venous access Age >= 75 History of VTE Family history of VTE Factor V Leiden Prothrombin [id number] Lupus anticoagulant Anticardiolipin antibodies Elevated serum homocysteine Heparin-induced thrombocytopenia Other congenital or acquired thrombophilia Stroke (< 1 month) Elective arthroplasty Hip, pelvis, or leg fracture Acute spinal cord injury (< 1 month) Prophylaxis Regimen Total Risk Factor Score Risk Level Prophylaxis Regimen 0-1 Low Early ambulation 2 Moderate Order ONE of the following: *Sequential Compression Device (SCD) *Heparin 5000 units SQ BID 3-4 Higher Order ONE of the following medications: *Heparin 5000 units SQ TID *Enoxaparin/Lovenox 40 mg SQ daily (WT < 150 kg, CrCl > 30 mL/min) *Enoxaparin/Lovenox 30 mg SQ daily (WT < 150 kg, CrCl > 10-29 mL/min) *Enoxaparin/Lovenox 30 mg SQ BID (WT < 150 kg, CrCl > 30 mL/min) AND/OR *Sequential Compression Device (SCD) 5 or more Highest Order ONE of the following medications: *Heparin 5000 units SQ TID (Preferred with Epidurals) *Enoxaparin/Lovenox 40 mg SQ daily (WT < 150 kg, CrCl > 30 mL/min) *Enoxaparin/Lovenox 30 mg SQ daily (WT < 150 kg, CrCl > 10-29 mL/min) *Enoxaparin/Lovenox 30 mg SQ BID (WT < 150 kg, CrCl > 30 mL/min) AND *Sequential Compression Device (SCD) Assessment and Plan Plan PAD with recurrent rest pain after inflow disease. Plan for R groin reconstruction and distal bypass All questions answered. Ready for OR. Discharge Planning 4-5 days Daughter [phone] Bernardo Avila MD Nov 04, 2017 10:04
[2017-11-04] MEDS ORDERED: ceFAZolin 2 GM PREMIX 50 ML ONE (10:30)
[2017-11-04] MEDS ORDERED: BUPIVACAINE HCL PF 0.5% 30 ML VIAL ONE (10:30)
[2017-11-04] MEDS ORDERED: PROTAMINE SULFATE 50 MG/5 ML VIAL ONE (10:30)
[2017-11-04] MEDS ORDERED: HEPARIN SODIUM - IV 10,000 UNITS/10 ML VIAL ONE (10:30)
[2017-11-04] MEDS ORDERED: THROMBIN (TOPICAL) 20,000 UNIT SPRAY KIT ONE (10:30)
[2017-11-04] MEDS ORDERED: HEPARIN-NS/PF INJ 500 ML ONE (10:30)
[2017-11-04] MEDS ORDERED: NEOSTIGMINE 5 MG/5 ML SYRINGE IV PUSH ONE (12:00)
[2017-11-04] MEDS ORDERED: ePHEDrine/NS 25 MG/5 ML SYRINGE IV ONE (12:00)
[2017-11-04] MEDS ORDERED: PHENYLEPH/NS 1000 MCG/10 ML SYR IV ONE (12:00)
[2017-11-04] MEDS ORDERED: GLYCOPYRROLATE 1 MG/5 ML SYRINGE IV PUSH ONE (12:00)
[2017-11-04] MEDS ORDERED: ceFAZolin INJ 1,000 MG VIAL IV ONE (12:00)
[2017-11-04] MEDS ORDERED: PHENYLEPHRINE HCL 10 MG/ML VIAL IV ONE (12:00)
[2017-11-04] MEDS ORDERED: NORMOSOL R INJ 1,000 ML IV ONE (12:00)
[2017-11-04] MEDS ORDERED: LIDOCAINE HCL 1% PF 5 ML SYRINGE OTHER ONE (12:00)
[2017-11-04] MEDS ORDERED: ROCURONIUM INJ 50 MG/5 ML SYRINGE IV PUSH ONE (12:00)
[2017-11-04] MEDS ORDERED: ONDANSETRON HCL 4 MG/2 ML VIAL IV ONE (12:00)
[2017-11-04] MEDS ORDERED: SODIUM CHLORID 0.9% 500 ML INJ 500 ML IV ONE (12:00)
[2017-11-04] MEDS ORDERED: LACTATED RINGER'S 1000 ML INJ 1,000 ML IV ONE (12:00)
[2017-11-04] MEDS ORDERED: PROPOFOL 200 MG/20 ML AMP IV ONE (12:00)
[2017-11-04] MEDS ORDERED: DEXAMETHASONE SOD PHOS 4 MG/ML VIAL IV ONE (12:00)
[2017-11-04] MEDS ORDERED: SODIUM CHLOR 0.9% 250 ML INJ 250 ML IV ONE (12:00)
[2017-11-04] MEDS ORDERED: ACETAMINOPHEN 1000 MG/100 ML 100 ML IV ONE (13:46)
--- NOTE | 2017-11-04 14:16 | HHI.PR ---
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 Procedure: 1. R ilioprofunda bypass with 6mm Dacron 2. R fem-BK pop with cryo 3. redo bypass Findings: very diseased PFA + Doppler signal in foot at conclusion of case Complications: none Specimen(s) removed: none for pathology Estimated blood loss: 400mL Anesthesia: General Drains: None Fluids: 2400mL x'oid; 2U PRBC Urinary Output (mLs): 250 Patient to: PACU Patient Condition: Good Implant/Devices: SEE IMPLANT LOG (if applicable) Date/Time of Procedure: SEE SURGICAL CARE RECORD Bernardo Avila MD Nov 04, 2017 14:16
[2017-11-04] MEDS ORDERED: IPRATROPIUM BROMIDE 17 MCG/ACT 12.9 GM INHALER INH PRN (14:30)
[2017-11-04] MEDS ORDERED: BISACODYL 10 MG SUPP RECTAL PRN (14:30)
[2017-11-04] MEDS ORDERED: SENNOSIDES 8.6 MG TAB PO PRN (14:30)
[2017-11-04] MEDS ORDERED: MAGNESIUM HYDROXIDE SUSP 30 ML CUP PO PRN (14:30)
[2017-11-04] MEDS ORDERED: MORPHINE SULFATE 4 MG/ML INJ IV PUSH PRN (14:30)
[2017-11-04] MEDS ORDERED: LACTULOSE SYRUP 20 GM/30 ML CUP PO PRN (14:30)
[2017-11-04] MEDS ORDERED: DO NOT ADM ANY ANTICOAGULANT DRUGS PRN (14:39)
[2017-11-04] MEDS ORDERED: *morphine SULFATE 4 MG/ML PERIprocedure ONLY ONE (14:58)
[2017-11-04] MEDS ORDERED: MORPHINE SULFATE 2 MG/ML INJ ONE (15:36)
[2017-11-04 15:44] LABS: HEMATOCRIT 26.2 % (35.0-46.0); HEMOGLOBIN 8.6 GM/DL (11.6-15.3); MEAN CELL VOLUME 87.7 FL (80.0-100.0); MEAN CORPUSCULAR HEMOGLOBIN 28.7 PG (27.0-34.0); MEAN CORPUSCULAR HGB CONC 32.7 % (32.0-36.0); MEAN PLATELET VOLUME 9.4 FL (7.0-11.0); PLATELET COUNT 186 TH/MM3 (150-450); RED BLOOD COUNT 2.99 MIL/MM3 (4.00-5.30); RED CELL DISTRIBUTION WIDTH 16.4 % (11.6-17.2); WHITE BLOOD COUNT 11.1 TH/MM3 (4.0-11.0)
[2017-11-04 18:00] VITALS: BP 140/64; PULSE 78; PULSE 81; RESP 19; TEMP 98.2; O2SAT 100
[2017-11-04] MEDS: GABAPENTIN 400 MG CAP PO SCH (18:12)
[2017-11-04 19:40] VITALS: BP 152/69; PULSE 77; PULSE 83; RESP 20; TEMP 98.7; O2SAT 99
[2017-11-04 20:30] VITALS: PULSE 78
[2017-11-04 21:00] VITALS: PULSE 78
[2017-11-04] MEDS: FAMOTIDINE 20 MG TAB PO SCH (21:02)
[2017-11-04] MEDS: DOCUSATE SODIUM 50 MG/SENNA 8.6 MG TAB PO SCH (21:02)
[2017-11-04] MEDS: ATORVASTATIN 40 MG TAB PO SCH (21:02)
[2017-11-04] MEDS: HYDROmorphone HCL 2 MG TAB PO PRN (21:02)
[2017-11-04 22:00] VITALS: PULSE 80
[2017-11-04 23:50] VITALS: BP 133/62; PULSE 72; PULSE 84; RESP 20; TEMP 98.4; O2SAT 98
[2017-11-05] VITALS (32 sets, daily range): BP systolic 112–159; BP diastolic 54–72; PULSE 65–90; RESP 16–19; TEMP 98.1–98.7; O2SAT 96–99
[2017-11-05 04:59] LABS: HEMATOCRIT 25.2 % (35.0-46.0); HEMOGLOBIN 8.4 GM/DL (11.6-15.3); MEAN CELL VOLUME 87.3 FL (80.0-100.0); MEAN CORPUSCULAR HEMOGLOBIN 29.1 PG (27.0-34.0); MEAN CORPUSCULAR HGB CONC 33.3 % (32.0-36.0); MEAN PLATELET VOLUME 9.2 FL (7.0-11.0); PLATELET COUNT 181 TH/MM3 (150-450); RED BLOOD COUNT 2.89 MIL/MM3 (4.00-5.30); RED CELL DISTRIBUTION WIDTH 17.2 % (11.6-17.2); WHITE BLOOD COUNT 11.7 TH/MM3 (4.0-11.0)
[2017-11-05 05:23] LABS: BICARBONATE 28.7 MEQ/L (21.0-32.0); CREATININE 0.61 MG/DL (0.50-1.00)
--- NOTE | 2017-11-05 07:15 | PD.VS.PN ---
Subjective POD #: 1 Procedure(s): R groin reconstruction, re-do bypass Subjective/Hospital Course Looks great, no pain except in groin. Foot feels much better than preop Ambulated already to BR Objective Vitals/I&O Date Time Temp Pulse Resp B/P (MAP) Pulse Ox O2 Delivery O2 Flow Rate FiO2 11/05/17 06:04 82 11/05/17 05:22 81 11/05/17 04:30 80 11/05/17 03:50 65 11/05/17 03:50 98.3 88 19 147/72 (97) 99 11/05/17 02:31 76 11/05/17 01:00 74 11/05/17 00:00 74 11/04/17 23:50 84 11/04/17 23:50 98.4 72 20 133/62 (85) 98 11/04/17 22:00 80 11/04/17 21:00 78 11/04/17 20:30 78 11/04/17 19:40 98.7 77 20 152/69 (96) 99 11/04/17 19:40 83 11/04/17 18:00 98.2 78 19 140/64 (89) 100 11/04/17 18:00 81 11/04/17 17:30 97.9 75 16 138/68 (91) 100 Nasal Cannula 3 11/04/17 17:00 75 16 137/66 (89) 98 Nasal Cannula 3 11/04/17 16:30 71 16 127/64 (85) 98 Nasal Cannula 3 11/04/17 16:00 74 16 129/63 (85) 98 Nasal Cannula 3 11/04/17 15:30 71 17 127/64 (85) 95 Nasal Cannula 3 11/04/17 15:15 72 15 119/64 (82) 95 Nasal Cannula 3 11/04/17 15:00 78 15 140/75 (96) 95 Nasal Cannula 3 11/04/17 14:45 78 14 131/58 (82) 98 Nasal Cannula 3 11/04/17 14:36 97.4 82 14 143/68 (93) 100 Nasal Cannula 3 11/04/17 08:10 98.6 71 20 153/77 (102) 98 11/05/17 11/05/17 11/05/17 07:00 15:00 23:00 Intake Total 480 ml Output Total 815 ml Balance -335 ml Exam: Sitting in chair, no distress Foot warm. Incisions soft Pulses: strong DP signal in foot Laboratory Laboratory Tests Test 11/04/17 08:27 11/04/17 14:50 11/05/17 04:10 White Blood Count 5.8 11.1 11.7 Red Blood Count 2.53 2.99 2.89 Hemoglobin 7.2 8.6 8.4 Hematocrit 22.6 26.2 25.2 Mean Corpuscular Volume 89.4 87.7 87.3 Mean Corpuscular Hemoglobin 28.5 28.7 29.1 Mean Corpuscular Hemoglobin Concent 31.9 32.7 33.3 Red Cell Distribution Width 17.9 16.4 17.2 Platelet Count 223 186 181 Mean Platelet Volume 9.7 9.4 9.2 Neutrophils (%) (Auto) 70.8 Lymphocytes (%) (Auto) 19.0 Monocytes (%) (Auto) 6.6 Eosinophils (%) (Auto) 2.8 Basophils (%) (Auto) 0.8 Neutrophils # (Auto) 4.1 Lymphocytes # (Auto) 1.1 Monocytes # (Auto) 0.4 Eosinophils # (Auto) 0.2 Basophils # (Auto) 0.0 CBC Comment AUTO DIFF Differential Comment AUTO DIFF CONFIRMED Platelet Estimate NORMAL Platelet Morphology Comment NORMAL Polychromasia 2.5 Blood Urea Nitrogen 9 Creatinine 0.61 Random Glucose 138 Calcium Level 8.0 Sodium Level 141 Potassium Level 4.1 Chloride Level 104 Carbon Dioxide Level 28.7 Anion Gap 8 Estimat Glomerular Filtration Rate 99 Assessment and Plan Plan POD#1 s/p R groin reconstruction and distal bypass, patent and looks great 1. Normalize 2. OOB/PT 3. PT . Discharge Planning D/C Friday likely (POD#3) Daughter [phone] Bernardo Avila MD Nov 05, 2017 07:15
[2017-11-05] MEDS: GABAPENTIN 400 MG CAP PO SCH ×3 (08:34→17:00)
[2017-11-05] MEDS: buPROPion HCL 150 MG SUSTAINED RELEASE TAB PO SCH (08:34)
[2017-11-05] MEDS: FERROUS SULFATE 325 MG (65 MG ELEMENTAL IRON) TAB PO SCH (08:34)
[2017-11-05] MEDS: DOCUSATE SODIUM 50 MG/SENNA 8.6 MG TAB PO SCH ×2 (08:34→21:12)
[2017-11-05] MEDS: FAMOTIDINE 20 MG TAB PO SCH ×2 (08:35→21:12)
[2017-11-05] MEDS: LOSARTAN 50 MG TAB PO SCH (08:35)
[2017-11-05] MEDS: ASPIRIN 81 MG CHEW TAB PO SCH (08:35)
[2017-11-05] MEDS: HYDROmorphone HCL 2 MG TAB PO PRN ×3 (12:12→21:13)
--- NOTE | 2017-11-05 12:17 | MP ---
cc: Bernardo Avila MD DATE OF OPERATION: 11/04/2017 PREOPERATIVE DIAGNOSIS: Peripheral arterial occlusive disease, right lower extremity rest pain. POSTOPERATIVE DIAGNOSIS: Peripheral arterial occlusive disease, right lower extremity rest pain. PROCEDURES PERFORMED: 1. Right iliac, profunda bypass with 6 mm Dacron. 2. Right femoral to below knee popliteal artery bypass with cryopreserved vein. 3. Redo bypass. ATTENDING SURGEON: Adriano Avila MD ANESTHESIA: General. INDICATIONS FOR PROCEDURE: Ms. Mejia is a lady has previous groin reconstruction including common to superficial femoral bypass and groin reconstruction and angiogram showed she had a profunda stenosis, as well as SFA occlusion. She was taken to the operating room for a redo bypass. DESCRIPTION OF PROCEDURE: Informed consent was obtained from the patient. She was taken to the operating room and placed supine on the operating table. An appropriate timeout was taken to ensure the patient's identity, operative site and planned procedure. The administration of 2 grams of Ancef was initiated prior to skin incision, will be discontinued after single preoperative dose. Everyone in the room agreed with timeout and we proceeded. She was prepped from her nipples to her toes. Her previous groin incision was opened with a 10 blade, carried down through subcutaneous tissue with electrocautery. Dense scar tissue was encountered. We dissected down to the Dacron, iliofemoral and fem-pop bypass and this encircled both the iliofemoral and the proximal aspect of fem-pop and encircled with vessel loops. We then performed tedious dissection down to the profunda, which was noted to be quite diseased. This was encircled with a vessel loop. A separate incision was made on the proximal aspect of the calf, carried down through subcutaneous tissue with electrocautery. The muscle was divided. It was retracted posteriorly and the popliteal artery and vein were identified. The popliteal artery was dissected free for several centimeters. A tunnel was then created with a counter incision in the distal thigh. At this point, the patient was systemically heparinized. Proximal control of the previous iliofemoral was obtained with a profunda clamp and the previous fem to SFA bypass was transected. It was noted to be occluded. The distal end was oversewn with 4-0 Prolene. We then resected this jump graft down to the ilio-profunda and then dissected the ilio-profunda down to the profunda anastomosis, which was disassembled. We dissected down to the profunda even further and the profunda was opened anteriorly with Tickfaw scissors. The ilio-profunda was transected and spatulated and a 6 mm Dacron was brought up on the field and sewn end-to-end to the previous Dacron and end-to-end to the profunda with running 5-0 and 6-0 Prolene sutures respectively. A longitudinal graftotomy was made with an 11 blade, extended with Rodney scissors. The cryopreserved vein was brought up on the field and had been prepared in the standard fashion. It was spatulated and sewn end to side to the ilio-profunda bypass with running 5-0 Prolene suture. At the completion it was flushed and noted to be hemostatic. All the clamps were released. The Hemoclips were placed on the distal aspect of the graft and the graft was distended, marked for orientation and passed through the tunnel, taking caution not to twist it. Proximal and distal control of the popliteal artery were obtained with fundal clamps and the longitudinal arteriotomy was made with 11 blade, extended with Tickfaw scissors. The cryopreserved graft was cut to appropriate length, spatulated and sewn end-to-side with running 6-0 Prolene suture. Completion was flushed and was hemostatic. There was nice Doppler signal in the foot. The wounds were all made hemostatic. The heparin was not reversed. The wounds were closed with 2-0 Polysorb, 3-0 Polysorb and 4-0 Monocryl. The sponge and needle counts were correct at the end of the case. I was present, scrubbed and performed the entire procedure. MD KOURTNEY Mcintyre/ELVA , 10:04 PM , 12:00 AM
[2017-11-05] MEDS ORDERED: ENOXAPARIN SODIUM 30 MG/0.3 ML SYRINGE SQ SCH (14:00)
[2017-11-05] MEDS: ATORVASTATIN 40 MG TAB PO SCH (21:12)
[2017-11-06] VITALS (28 sets, daily range): BP systolic 150–167; BP diastolic 72–74; PULSE 70–102; RESP 18–19; TEMP 98.4–98.9; O2SAT 95–99
[2017-11-06] MEDS: HYDROmorphone HCL 2 MG TAB PO PRN ×5 (03:59→20:43)
[2017-11-06] MEDS: buPROPion HCL 150 MG SUSTAINED RELEASE TAB PO SCH (08:50)
[2017-11-06] MEDS: GABAPENTIN 400 MG CAP PO SCH ×3 (08:50→17:16)
[2017-11-06] MEDS: FAMOTIDINE 20 MG TAB PO SCH ×2 (08:51→20:43)
[2017-11-06] MEDS: FERROUS SULFATE 325 MG (65 MG ELEMENTAL IRON) TAB PO SCH (08:51)
[2017-11-06] MEDS: LOSARTAN 50 MG TAB PO SCH (08:51)
[2017-11-06] MEDS: ASPIRIN 81 MG CHEW TAB PO SCH (08:51)
[2017-11-06] MEDS: DOCUSATE SODIUM 50 MG/SENNA 8.6 MG TAB PO SCH ×2 (08:51→20:44)
--- NOTE | 2017-11-06 09:00 | PD.VS.PN ---
Subjective POD #: 2 Procedure(s): R groin reconstruction, re-do bypass Subjective/Hospital Course Pt S/P R groin reconstruction POD 2 Pt ambulating Pain controlled Pt c/o mild post operative R groin incisional pain R groin S/NT w/o hematoma or swelling Provena wound vac in place R groin Objective Vitals/I&O Date Time Temp Pulse Resp B/P (MAP) Pulse Ox O2 Delivery O2 Flow Rate FiO2 11/06/17 06:00 76 11/06/17 05:00 75 11/06/17 04:10 98.8 92 18 160/72 (101) 95 11/06/17 04:00 79 11/06/17 03:00 82 11/06/17 02:00 77 11/06/17 01:00 70 11/06/17 00:00 78 11/05/17 23:10 98.2 90 18 148/69 (95) 97 11/05/17 23:00 73 11/05/17 22:00 76 11/05/17 21:00 76 11/05/17 20:00 84 11/05/17 19:45 96 Room Air 11/05/17 19:45 98.1 86 18 159/72 (101) 97 11/05/17 19:00 83 11/05/17 18:06 19 11/05/17 18:00 86 11/05/17 17:07 86 11/05/17 16:00 73 11/05/17 15:00 98.3 84 17 112/54 (73) 96 11/05/17 15:00 75 11/05/17 14:00 76 11/05/17 13:00 82 11/05/17 12:11 80 11/05/17 12:00 85 11/05/17 11:03 98.7 78 18 124/59 (80) 97 11/05/17 11:00 74 11/05/17 11:00 73 11/05/17 10:03 82 11/05/17 10:02 18 11/05/17 10:00 82 11/05/17 09:15 76 11/05/17 09:00 76 11/06/17 11/06/17 11/06/17 07:00 15:00 23:00 Intake Total 240 ml Output Total 550 ml Balance -310 ml Exam: GENERAL: A&Ox3,NAD,GCS 15 SKIN: Warm and dry. provena wound vac in place to R groin/ R groin w/o swelling or hematoma CARDIOVASCULAR: Regular rate and rhythm without murmurs, gallops, or rubs. RESPIRATORY: Breath sounds equal bilaterally. No accessory muscle use. GASTROINTESTINAL: Abdomen soft, non-tender, nondistended. MUSCULOSKELETAL: No cyanosis/pt w/ mild non pitting edema to R foot Multiphasic R DP/PT heard via Doppler Multiphasic L PT heard via Doppler LE warm w/ motor intact Assessment and Plan Plan POD#2 Pt s/p R groin reconstruction and distal bypass Pt doing well and ambulating LE warm w/ motor intact Plan Continue PT/OOB/Ambulate Continue pain management D/C planning/Potentially tomorrow am Lizett Joshua NP [facility]/[place] [phone] . Discharge Planning D/C Friday likely (POD#3) Daughter [phone] Lizett Joshua Nov 06, 2017 09:00
[2017-11-06] MEDS: ATORVASTATIN 40 MG TAB PO SCH (20:43)
[2017-11-07] VITALS (12 sets, daily range): BP systolic 147–149; BP diastolic 71–74; PULSE 79–92; RESP 18–19; TEMP 97.9–98.8; O2SAT 94–97
--- NOTE | 2017-11-07 08:01 | PD.VS.PN ---
Subjective POD #: 3 Procedure(s): R groin reconstruction, re-do bypass Subjective/Hospital Course Pt S/P R groin reconstruction POD 3 Pt ambulating Pain controlled Pt c/o mild post operative R groin incisional pain R groin S/NT w/o hematoma or swelling Provena wound vac in place R groin Objective Vitals/I&O Date Time Temp Pulse Resp B/P (MAP) Pulse Ox O2 Delivery O2 Flow Rate FiO2 11/07/17 07:38 97 Room Air 11/07/17 07:36 97.9 88 18 147/71 (96) 97 11/07/17 07:00 85 11/07/17 06:45 88 11/07/17 05:08 84 11/07/17 04:37 81 11/07/17 03:38 98.8 88 19 149/74 (99) 94 11/07/17 03:26 88 11/07/17 02:30 81 11/07/17 01:45 81 11/07/17 00:08 79 11/06/17 23:25 78 11/06/17 23:25 98.4 87 19 167/74 (105) 97 11/06/17 22:15 82 11/06/17 21:58 96 11/06/17 20:00 89 11/06/17 19:30 Room Air 11/06/17 19:30 98.5 93 19 166/73 (104) 99 11/06/17 19:30 94 11/06/17 18:00 95 11/06/17 17:00 98 11/06/17 16:00 93 11/06/17 15:36 98.8 93 18 155/72 (99) 97 11/06/17 15:00 96 11/06/17 14:00 91 11/06/17 13:00 77 11/06/17 12:00 80 11/06/17 11:30 98.5 86 18 150/74 (99) 97 11/06/17 11:00 84 11/06/17 10:00 102 11/06/17 09:00 90 11/06/17 08:00 88 11/07/17 11/07/17 11/07/17 07:00 15:00 23:00 Intake Total 480 ml Balance 480 ml Exam: GENERAL: A&Ox3,NAD,GCS 15 SKIN: Warm and dry. Provena wound vac in place to R groin/ R groin w/o swelling or hematoma CARDIOVASCULAR: Regular rate and rhythm without murmurs, gallops, or rubs. RESPIRATORY: Breath sounds equal bilaterally. No accessory muscle use. GASTROINTESTINAL: Abdomen soft, non-tender, nondistended. MUSCULOSKELETAL: No cyanosis/pt w/ mild non pitting edema to R foot Multiphasic R DP/PT heard via Doppler Multiphasic L PT heard via Doppler LE warm w/ motor intact Assessment and Plan Plan POD#3 Pt s/p R groin reconstruction and distal bypass Pt doing well and ambulating LE warm w/ motor intact Plan Pt clear for D/C Leave Provena wound vac in place Will D/C Provena wound vac in 3 days in our out pt clinic Arranged out pt f/u Lizett Joshua NP [facility]/[place] [phone] . Discharge Planning D/C today Daughter [phone] Lizett Joshua Nov 07, 2017 08:01
[2017-11-07] MEDS ORDERED: PERC5TAB12 PO (08:02)
--- NOTE | 2017-11-07 08:11 | PD.VS.DC ---
Discharge Summary Admission Date: Nov 04, 2017 at 07:36 Discharge Date: Nov 07, 2017 Admission Diagnosis: (1) Peripheral arterial disease Discharge Diagnosis: (1) Peripheral arterial disease ICD Codes: I73.9 - Peripheral vascular disease, unspecified Status: Chronic Brief History from admission 62 yo female with PAD and h/o B groin reconstruction and iliac stents. Over past few months has developed recurrent R LE rest pain without tissue loss and no motor dysfunction. Angio showed severe R LE occlusive disease. Planned for R LE bypass. Procedure(s): R groin reconstruction, re-do bypass Significant Findings Laboratory Tests Test 11/04/17 08:27 11/04/17 14:50 11/05/17 04:10 Red Blood Count 2.53 MIL/MM3 (4.00-5.30) 2.99 MIL/MM3 (4.00-5.30) 2.89 MIL/MM3 (4.00-5.30) Hemoglobin 7.2 GM/DL (11.6-15.3) 8.6 GM/DL (11.6-15.3) 8.4 GM/DL (11.6-15.3) Hematocrit 22.6 % (35.0-46.0) 26.2 % (35.0-46.0) 25.2 % (35.0-46.0) Mean Corpuscular Hemoglobin Concent 31.9 % (32.0-36.0) Red Cell Distribution Width 17.9 % (11.6-17.2) Neutrophils (%) (Auto) 70.8 % (16.0-70.0) Polychromasia 2.5 % (0.0-1.9) White Blood Count 11.1 TH/MM3 (4.0-11.0) 11.7 TH/MM3 (4.0-11.0) Random Glucose 138 MG/DL (74-106) Calcium Level 8.0 MG/DL (8.5-10.1) Hospital Course: 62 yo female with PAD and h/o B groin reconstruction and iliac stents. Over past few months has developed recurrent R LE rest pain without tissue loss and no motor dysfunction. Angio showed severe R LE occlusive disease Pt s/p R groin reconstruction/re-do bypass POD 1 Looks great, no pain except in groin. Foot feels much better than preop Ambulated already to BR POD 2 Pt ambulating Pain controlled Pt c/o mild post operative R groin incisional pain R groin S/NT w/o hematoma or swelling Provena wound vac in place R groin POD 3 Pt ambulating Pain controlled Pt c/o mild post operative R groin incisional pain R groin S/NT w/o hematoma or swelling Pt clear for D/C Leave Provena wound vac in place Will D/C Provena wound vac in 3 days in our out pt clinic Arranged out pt f/u Provena wound vac in place R groin Allergies Coded Allergies Type Severity Reaction Last Updated Verified No Known Allergies Allergy Unknown 11/04/17 No 11/05/17 11/05/17 11/06/17 11/06/17 11/07/17 11/07/17 06:00 18:00 06:00 18:00 06:00 18:00 Intake Total 1320 ml 1080 ml 480 ml Output Total 815 ml 1400 ml Balance 505 ml -320 ml 480 ml Intake Oral 1320 ml 1080 ml 480 ml Output Urine Total 815 ml 1400 ml # Voids 3 3 # Bowel Movements 0 1 Laboratory Tests Test 11/04/17 08:27 11/04/17 14:50 11/05/17 04:10 White Blood Count 5.8 TH/MM3 11.1 TH/MM3 11.7 TH/MM3 Red Blood Count 2.53 MIL/MM3 2.99 MIL/MM3 2.89 MIL/MM3 Hemoglobin 7.2 GM/DL 8.6 GM/DL 8.4 GM/DL Hematocrit 22.6 % 26.2 % 25.2 % Mean Corpuscular Volume 89.4 FL 87.7 FL 87.3 FL Mean Corpuscular Hemoglobin 28.5 PG 28.7 PG 29.1 PG Mean Corpuscular Hemoglobin Concent 31.9 % 32.7 % 33.3 % Red Cell Distribution Width 17.9 % 16.4 % 17.2 % Platelet Count 223 TH/MM3 186 TH/MM3 181 TH/MM3 Mean Platelet Volume 9.7 FL 9.4 FL 9.2 FL Neutrophils (%) (Auto) 70.8 % Lymphocytes (%) (Auto) 19.0 % Monocytes (%) (Auto) 6.6 % Eosinophils (%) (Auto) 2.8 % Basophils (%) (Auto) 0.8 % Neutrophils # (Auto) 4.1 TH/MM3 Lymphocytes # (Auto) 1.1 TH/MM3 Monocytes # (Auto) 0.4 TH/MM3 Eosinophils # (Auto) 0.2 TH/MM3 Basophils # (Auto) 0.0 TH/MM3 CBC Comment AUTO DIFF Differential Comment AUTO DIFF CONFIRMED Platelet Estimate NORMAL Platelet Morphology Comment NORMAL Polychromasia 2.5 % Blood Urea Nitrogen 9 MG/DL Creatinine 0.61 MG/DL Random Glucose 138 MG/DL Calcium Level 8.0 MG/DL Sodium Level 141 MEQ/L Potassium Level 4.1 MEQ/L Chloride Level 104 MEQ/L Carbon Dioxide Level 28.7 MEQ/L Anion Gap 8 MEQ/L Estimat Glomerular Filtration Rate 99 ML/MIN Orders Procedure Category Date Status Time Complete Blood Count LAB 11/04/17 Complete With Diff 08:13 Lactated Ringer's MED 11/04/17 In Process 1000 Ml Inj (Lr 1000 M 08:30 Sodium Chlorid 0.9% MED 11/04/17 In Process 500 Ml Inj (Ns 500 M 08:30 Metoprolol Tartrate MED 11/04/17 In Process (Lopressor) 08:30 Povidone Iod 5% MED 11/04/17 In Process Antisepsis Kit 08:30 Chlorhexidine 2% MED 11/04/17 In Process Cloth (Chlorhexidine 08:30 Protamine Sulfate Inj MED 11/04/17 Complete (Protamine Sulfate 10:30 Heparin Inj (Heparin MED 11/04/17 Complete Inj) 10:30 Bupivacaine Pf 0.5% MED 11/04/17 Complete Inj (Marcaine Pf 0.5 10:30 Thrombin Top [place] MED 11/04/17 Complete (Thrombin Top [place]) 10:30 Heparin-Ns/Pf Inj MED 11/04/17 Complete (Heparin-Ns/Pf Inj) 10:30 Cefazolin 2 Gm Premix MED 11/04/17 Complete (Ancef 2 Gm Premix 10:30 Urinary Catheter LAMONTE 11/04/17 Complete Management 11:15 Am Admit Pre Op Care SDSC 11/04/17 Complete Acetaminophen 1000 MED 11/04/17 Complete Mg/100 Ml (Ofirmev 10 13:46 Admit To Inpatient ADMITTING 3/20/18 Transmitted Code Status CODE 11/04/17 Transmitted 14:16 Vital Signs (Adult) LAMONTE 11/04/17 In Process 14:16 Selvage Machine Operator / LAMONTE 11/04/17 In Process Telemetry 14:16 Activity Oob Ad Martina LAMONTE 11/05/17 In Process 08:00 Activity Bed Rest LAM[place]TE 11/04/17 In Process 14:[address] Chris L[place] 11/04/17 In Process 14:16 ^ Vac Dressing To Be LAMONTE 11/04/17 In Process Used 14:16 Diet Heart Healthy DIET 11/04/17 Transmitted Dinner Basic Metabolic Panel LAB 11/05/17 Complete (Bmp) 06:00 Cbc No Diff, Includes LAB 11/04/17 Complete Plts 14:16 Cbc No Diff, Includes LAB 11/05/17 Complete Plts 06:00 Consult Pt Eval & PT 11/04/17 Logged Treat 14:16 Aspirin Chew (Aspirin MED 11/05/17 In Process Chew) 09:00 Famotidine (Pepcid) MED 11/04/17 In Process 21:00 Atorvastatin (Lipitor) MED 11/04/17 In Process 21:00 Oxycodone (Roxicodone) MED 11/04/17 In Process 14:30 Hydromorphone MED 11/04/17 In Process (Dilaudid) 14:30 Morphine Inj MED 11/04/17 In Process (Morphine Inj) 14:30 Docusate Sodium-Senna MED 11/04/17 In Process (Krystal-Colace) 21:00 Magnesium Hydroxide MED 11/04/17 In Process Liq (Milk Of Magnesi 14:30 Sennosides (Senokot) MED 11/04/17 In Process 14:30 Bisacodyl Supp MED 11/04/17 In Process (Dulcolax Supp) 14:30 Lactulose Liq MED 11/04/17 In Process (Lactulose Liq) 14:30 Inpatient ADMITTING 11/04/17 Transmitted Certification Remove Urinary LAMONTE 11/05/17 In Process Catheter 08:00 Ferrous Sulfate MED 11/05/17 In Process (Ferrous Sulfate) 09:00 Gabapentin (Neurontin) MED 11/04/17 In Process 18:00 Ipratropium Hfa Inh MED 11/04/17 In Process (Atrovent Hfa Inh) 14:30 Losartan (Cozaar) MED 11/05/17 In Process 09:00 Fentanyl Inj MED 11/04/17 Complete (Fentanyl Inj) 14:50 *Morphine Inj MED 11/04/17 Complete (*Morphine Inj 14:58 Misc Nursing MED 11/04/17 Complete Information 14:39 Morphine Inj MED 11/04/17 Complete (Morphine Inj) 15:36 Bupropion Sr MED 11/05/17 In Process (Wellbutrin Sr) 09:00 Enoxaparin Inj MED 11/05/17 In Process (Lovenox Inj) 14:00 Class Iv Pacu Ea 30 [facility] 11/04/17 Complete MIN General/Pacu [facility] 11/04/17 Complete Post Anesthesia Oxygen [facility] 11/04/17 Complete Pacu Cpcu Holding [facility] 11/04/17 Complete Hourly Attending Discharge DISCHARGE 11/07/17 Transmitted Order Vital Signs Date Time Temp Pulse Resp B/P (MAP) Pulse Ox O2 Delivery O2 Flow Rate FiO2 11/07/17 07:38 97 Room Air 11/07/17 07:36 97.9 88 18 147/71 (96) 97 11/07/17 07:00 85 11/07/17 06:45 88 11/07/17 05:08 84 11/07/17 04:37 81 11/07/17 03:38 98.8 88 19 149/74 (99) 94 11/07/17 03:26 88 11/07/17 02:30 81 11/07/17 01:45 81 11/07/17 00:08 79 11/06/17 23:25 78 11/06/17 23:25 98.4 87 19 167/74 (105) 97 11/06/17 22:15 82 11/06/17 21:58 96 11/06/17 20:00 89 11/06/17 19:30 Room Air 11/06/17 19:30 98.5 93 19 166/73 (104) 99 11/06/17 19:30 94 11/06/17 18:00 95 11/06/17 17:00 98 11/06/17 16:00 93 11/06/17 15:36 98.8 93 18 155/72 (99) 97 11/06/17 15:00 96 11/06/17 14:00 91 11/06/17 13:00 77 11/06/17 12:00 80 11/06/17 11:30 98.5 86 18 150/74 (99) 97 11/06/17 11:00 84 11/06/17 10:00 102 11/06/17 09:00 90 11/06/17 08:00 88 11/06/17 07:32 96 Room Air 11/06/17 07:32 98.9 89 18 160/74 (102) 96 11/06/17 07:00 80 11/06/17 06:00 76 11/06/17 05:00 75 11/06/17 04:10 98.8 92 18 160/72 (101) 95 11/06/17 04:00 79 11/06/17 03:00 82 11/06/17 02:00 77 11/06/17 01:00 70 11/06/17 00:00 78 11/05/17 23:10 98.2 90 18 148/69 (95) 97 11/05/17 23:00 73 11/05/17 22:00 76 11/05/17 21:00 76 11/05/17 20:00 84 11/05/17 19:45 96 Room Air 11/05/17 19:45 98.1 86 18 159/72 (101) 97 11/05/17 19:00 83 11/05/17 18:06 19 11/05/17 18:00 86 11/05/17 17:07 86 11/05/17 16:00 73 11/05/17 15:00 98.3 84 17 112/54 (73) 96 11/05/17 15:00 75 11/05/17 14:00 76 11/05/17 13:00 82 11/05/17 12:11 80 11/05/17 12:00 85 11/05/17 11:03 98.7 78 18 124/59 (80) 97 11/05/17 11:00 74 11/05/17 11:00 73 11/05/17 10:03 82 11/05/17 10:02 18 11/05/17 10:00 82 11/05/17 09:15 76 11/05/17 09:00 76 11/05/17 08:17 77 11/05/17 08:00 79 11/05/17 07:30 98.7 69 16 122/58 (79) 96 11/05/17 07:00 68 11/05/17 07:00 98.7 69 16 122/58 (79) 96 11/05/17 06:04 82 11/05/17 05:22 81 11/05/17 04:30 80 11/05/17 03:50 65 11/05/17 03:50 98.3 88 19 147/72 (97) 99 11/05/17 02:31 76 11/05/17 01:00 74 11/05/17 00:00 74 11/04/17 23:50 84 11/04/17 23:50 98.4 72 20 133/62 (85) 98 11/04/17 22:00 80 11/04/17 21:00 78 11/04/17 20:30 78 11/04/17 19:40 98.7 77 20 152/69 (96) 99 11/04/17 19:40 83 11/04/17 18:00 98.2 78 19 140/64 (89) 100 11/04/17 18:00 81 11/04/17 17:30 97.9 75 16 138/68 (91) 100 Nasal Cannula 3 11/04/17 17:00 75 16 137/66 (89) 98 Nasal Cannula 3 11/04/17 16:30 71 16 127/64 (85) 98 Nasal Cannula 3 11/04/17 16:00 74 16 129/63 (85) 98 Nasal Cannula 3 11/04/17 15:30 71 17 127/64 (85) 95 Nasal Cannula 3 11/04/17 15:15 72 15 119/64 (82) 95 Nasal Cannula 3 11/04/17 15:00 78 15 140/75 (96) 95 Nasal Cannula 3 11/04/17 14:45 78 14 131/58 (82) 98 Nasal Cannula 3 11/04/17 14:36 97.4 82 14 143/68 (93) 100 Nasal Cannula 3 11/04/17 08:10 98.6 71 20 153/77 (102) 98 Discharge Condition: Good Discharge Disposition: Discharge Home Discharge Instructions: Activities as tolerated May resume your regular diet No showering until Provena wound vac is removed F/U in our out pt clinic in 3 days (FRIDAY) at 2 pm for wound vac removal Your were prescribed a narcotic pain medication- No driving as this mediation may cause drowsiness Your were prescribed a narcotic pain medication- This medication may cause constipation- take with an over the counter stool softener Any questions or concerns: Call [facility] [phone] Lizett Joshua Nov 07, 2017 08:11
[2017-11-07] MEDS: ASPIRIN 81 MG CHEW TAB PO SCH (09:01)
[2017-11-07] MEDS: DOCUSATE SODIUM 50 MG/SENNA 8.6 MG TAB PO SCH (09:01)
[2017-11-07] MEDS: HYDROmorphone HCL 2 MG TAB PO PRN (09:01)
[2017-11-07] MEDS: FAMOTIDINE 20 MG TAB PO SCH (09:01)
[2017-11-07] MEDS: LOSARTAN 50 MG TAB PO SCH (09:01)
[2017-11-07] MEDS: buPROPion HCL 150 MG SUSTAINED RELEASE TAB PO SCH (09:01)
[2017-11-07] MEDS: FERROUS SULFATE 325 MG (65 MG ELEMENTAL IRON) TAB PO SCH (09:01)
[2017-11-07] MEDS: GABAPENTIN 400 MG CAP PO SCH (09:01)
== END 2017-11-07 11:07 | disposition home or self-care (01) | DRG 272 ==
LOC: HSDI 07:36 → HCPC 17:50
PROVIDERS: ADMIT Surgery; ATTEND Surgery
PROC: 30233N1 Transfusion of Nonautologous Red Blood Cells into Peripheral Vein, Percutaneous Approach (ICD-10-PCS; 2017-11-04)
PROC: 041 Lower Arteries, Bypass (ICD-10-PCS; principal; 2017-11-04 10:56)
PROC: 041 Lower Arteries, Bypass (ICD-10-PCS; 2017-11-04 10:56)
DX: I70.221 Atherosclerosis of native arteries of extremities with rest pain, right leg (principal); I10 Essential (primary) hypertension; I25.10 Atherosclerotic heart disease of native coronary artery without angina pectoris; I70.421 Atherosclerosis of autologous vein bypass graft(s) of the extremities with rest pain, right leg; D64.9 Anemia, unspecified; Z95.820 Peripheral vascular angioplasty status with implants and grafts; Z87.891 Personal history of nicotine dependence
CPT/HCPCS: 36430; 80048; 85025; 85027; 86850; 86900; 86901; 86920; C1768; J0131; J0690; J1100; J1644; J2270; J2370; J2405; J2710; J2720; J3010; J7040; J7050; J7120; P9016